=== PATIENT | male | born 1955 | race Caucasian/White ===

== ENCOUNTER 2017-12-29 09:25 | Inpatient (IN) | payer BC ==
[~2017-12-29] VITALS: Ht 172.7 cm; Wt 91.0 kg
--- NOTE | 2017-12-29 09:49 | EMERGENCY ROOM VISIT NOTE ---
History Report prepared by Eber: Gilmer Pittman Under the Supervision of: Dr. Alek Quintero M.D. First contact with patient: 09:35 Chief Complaint: FLU LIKE SX Stated Complaint: FLU & SWOLLEN GLANDS, EXCESSIVE SWEATING History of Present Illness The patient is a 62 year old white male with a past medical history of HLD and HTN who presents to the ED with a cc of persistent flu-like symptoms beginning 8 days ago. Positive shaking at night, dry cough, generalized achiness, sore glands in neck, pain under left arm, pain in groin area. Negative current fevers. He states that he did get his flu shot this season. The patient states that only extra-strength Tylenol relieves his symptoms for a short while. He notes that he currently feels the same as he did when the symptoms started. The patient states that he has not had any recent antibiotic use. He denies any recent known sick contacts. The patient does not smoke or use alcohol. Source of History: patient, nursing staff Onset: 8 days ago Position: other (global) Quality: other (flu-like symptoms) Timing: other (persistent) Modifying Factors (Relieving): tylenol Associated Symptoms: + cough, No fevers (no current) Note: Positive shaking, achiness, sore glands in neck, pain under left arm, pain in groin area. Review of Systems See HPI for pertinent positives and negatives. A total of ten systems were reviewed and were otherwise negative. Past Medical & Surgical Medical Problems: (1) HLD (hyperlipidemia) (2) HTN (hypertension) (3) Tachycardia Family History No pertinent family history Social History Smoking Status: Never Smoker Smokeless Tobacco Use: No Alcohol Use: none Drug Use: none Marital Status: Housing Status: lives with friends Current/Historical Medications Scheduled Aspirin (Aspirin Ec), 81 MG PO DAILY Atenolol (Atenolol), 50 MG PO DAILY Atorvastatin (Lipitor), 40 MG PO DAILY Esomeprazole Magnesium (Nexium), 40 MG PO DAILY Allergies Coded Allergies: No Known Allergies (Unverified , 12/29/17) Physical Exam Vital Signs Date Time Temp Pulse Resp B/P (MAP) Pulse Ox O2 Delivery O2 Flow Rate FiO2 12/29/17 14:00 95 Room Air 12/29/17 13:30 86 25 141/85 95 Room Air 12/29/17 13:25 85 12/29/17 13:00 86 22 136/77 94 12/29/17 12:30 86 27 129/76 95 Room Air 12/29/17 12:27 85 22 135/70 96 Room Air 12/29/17 11:18 89 22 138/71 96 Room Air 12/29/17 10:38 92 24 141/78 96 Room Air 12/29/17 10:06 97 Room Air 12/29/17 10:06 97 12/29/17 09:28 37.1 98 18 151/86 98 Room Air Physical Exam GENERAL: Awake, alert, well-appearing, NAD, mask in place. HENT: Normocephalic, atraumatic. EYES: Normal conjunctiva. Sclera non-icteric. NECK: Tender lymphadenopathy. Supple. No nuchal rigidity. FROM. RESPIRATORY: CTAB, no rhonchi, wheezing, crackles CARDIAC: RRR, no MRG ABDOMEN: Soft, NTND, BS+ MSK: No chest wall TTP, no LE edema NEURO: GCS 15, CN 2-12 intact, moves all 4s on command SKIN: No rash or jaundice noted. Medical Decision & Procedures ER Provider Diagnostic Interpretation: Radiology results as stated below per my review and radiologist interpretation: CHEST ONE VIEW PORTABLE CLINICAL HISTORY: Fever, sepsis COMPARISON STUDY: No previous studies for comparison. FINDINGS: The heart is normal in size. There is soft tissue fullness of the right paratracheal region. CT scanning could be obtained in follow-up as deemed clinically indicated. There is no focal pulmonary consolidation. There are no pleural effusions.[ There is no failure IMPRESSION: 1. No evidence of focal pulmonary consolidation 2. Soft tissue fullness of the right paratracheal region. Adenopathy cannot be excluded. Electronically signed by: Paul Carrasco M.D. 12/29/2017 10:10 AM Dictated Date/Time: 12/29/2017 10:[address] WITH CONTRAST CT DOSE: 308.89 mGy.cm HISTORY: Acute fever and sore throat. Right paratracheal fullness noted on chest radiographs of same day R paratracheal fullness, fever, sore throat, rigors TECHNIQUE: Multiaxial CT images of the chest were performed following the intravenous administration of contrast. A dose lowering technique was utilized adhering to the principles of ALARA. COMPARISON: Chest radiograph 12/29/2017. FINDINGS: Thyroid is homogeneous. There is multifocal bulky adenopathy about the chest including pathologically enlarged bilateral axillary and subpectoral lymph nodes with index right axillary lymph node measuring up to 2.2 x 1.8 cm on image 103 of series 4. Index pretracheal lymph node measures 2.1 x 1.5 cm on image 64 series 4, enlarged subcarinal lymph node measures 2.8 x 1.8 cm. Bulky adenopathy is seen within the prevascular, pretracheal, paratracheal and AP window distributions as well. Additionally, there is partially imaged bulky adenopathy of the upper abdomen within the region of the gastrohepatic ligament and ke hepatis. Heart is normal in size without pericardial effusion. Coronary arterial disease. Thoracic aorta is normal in both course and caliber. The pulmonary arterial tree appears unremarkable. There is no pneumothorax or pleural effusion. Mild groundglass opacity with subsegmental tree-in-bud nodularity of the left upper lobe. Respiratory motion limits evaluation of the lungs. Thickening with nodularity of the bilateral major fissures is noted. Additionally, scattered noncalcified pulmonary nodules are seen measuring up to 6 mm with the left lower lobe, image 205 series 4. 4 mm nodule of the lingula, image 129 series 4. 3 mm solid nodule of the right upper lobe, image 97 series 4. The liver appears enlarged, however is only partially imaged. Splenomegaly, measuring up to 14.8 cm. Mild bilateral gynecomastia. The bones appear intact. There are no suspicious lytic or blastic bony lesions identified. IMPRESSION: 1. Multifocal bulky adenopathy of the thorax as above, notably involving the mediastinum, tacos and bilateral subpectoral and axillary chains with partially imaged bulky adenopathy also present within the upper abdomen. Differential considerations would include lymphoproliferative disorder or metastatic disease from unknown primary. 2. Pleural thickening and nodularity of the bilateral major fissures is suspicious for lymphangitic spread of disease with infectious or inflammatory etiology also within the differential. A few scattered solid nodules of the lungs bilaterally measure up to 6 mm. Follow-up will be needed to further characterize. 3. Splenomegaly. Electronically signed by: Ke Hills M.D. 12/29/2017 12:34 PM Dictated Date/Time: 12/29/2017 12:23 PM Laboratory Results 12/29/17 10:40 Red Blood Count 5.17, Mean Corpuscular Volume 80.9, Mean Corpuscular Hemoglobin 27.9, Mean Corpuscular Hemoglobin Concent 34.4, Mean Platelet Volume 9.3, Neutrophils (%) (Auto) 75.2, Lymphocytes (%) (Auto) 10.6, Monocytes (%) (Auto) 10.3, Eosinophils (%) (Auto) 3.1, Basophils (%) (Auto) 0.3, Neutrophils # (Auto ) 9.68, Lymphocytes # (Auto) 1.36, Monocytes # (Auto) 1.32, Eosinophils # (Auto ) 0.40, Basophils # (Auto) 0.04 12/29/17 10:40 Test 12/29/17 09:46 12/29/17 09:56 12/29/17 10:40 Influenza Type A Antigen Neg for Influ A (NEG) Influenza Type B Antigen Neg for Influ B (NEG) Urine Color YELLOW Urine Appearance CLEAR (CLEAR) Urine pH 6.5 (4.5-7.5) Urine Specific [place] 1.012 (1.000-1.030) Urine Protein 1+ (NEG) Urine Glucose (UA) NEG (NEG) Urine Ketones NEG (NEG) Urine Occult Blood NEG (NEG) Urine Nitrite NEG (NEG) Urine Bilirubin NEG (NEG) Urine Urobilinogen NEG (NEG) Urine Leukocyte Esterase NEG (NEG) Urine WBC (Auto) 1-5 /hpf (0-5) Urine RBC (Auto) 0-4 /hpf (0-4) Urine Hyaline Casts (Auto) 0 /lpf (0-5) Urine Epithelial Cells (Auto) 5-10 /lpf (0-5) Urine Bacteria (Auto) NEG (NEG) White Blood Count 12.86 K/uL (4.8-10.8) Red Blood Count 5.17 M/uL (4.7-6.1) Hemoglobin 14.4 g/dL (14.0-18.0) Hematocrit 41.8 % (42-52) Mean Corpuscular Volume 80.9 fL (80-100) Mean Corpuscular Hemoglobin 27.9 pg (25-34) Mean Corpuscular Hemoglobin Concent 34.4 g/dl (32-36) Platelet Count 170 K/uL (130-400) Mean Platelet Volume 9.3 fL (7.4-10.4) Neutrophils (%) (Auto) 75.2 % Lymphocytes (%) (Auto) 10.6 % Monocytes (%) (Auto) 10.3 % Eosinophils (%) (Auto) 3.1 % Basophils (%) (Auto) 0.3 % Neutrophils # (Auto) 9.68 K/uL (1.4-6.5) Lymphocytes # (Auto) 1.36 K/uL (1.2-3.4) Monocytes # (Auto) 1.32 K/uL (0.11-0.59) Eosinophils # (Auto) 0.40 K/uL (0-0.5) Basophils # (Auto) 0.04 K/uL (0-0.2) RDW Standard Deviation 41.2 fL (36.4-46.3) RDW Coefficient of Variation 14.0 % (11.5-14.5) Immature Granulocyte % (Auto) 0.5 % Immature Granulocyte # (Auto) 0.06 K/uL (0.00-0.02) Prothrombin Time 11.0 SECONDS (9.0-12.0) Prothromb Time International Ratio 1.0 (0.9-1.1) Activated Partial Thromboplast Time 23.8 SECONDS (21.0-31.0) Partial Thromboplastin Ratio 0.9 Anion Gap 5.0 mmol/L (3-11) Est Creatinine Clear Calc Drug Dose 81.9 ml/min Estimated GFR () 93.6 Estimated GFR (Non- 80.7 BUN/Creatinine Ratio 15.8 (10-20) Calcium Level 8.4 mg/dl (8.5-10.1) Total Bilirubin 0.6 mg/dl (0.2-1) Direct Bilirubin 0.2 mg/dl (0-0.2) Aspartate Amino Transf (AST/SGOT) 75 U/L (15-37) Alanine Aminotransferase (ALT/SGPT) 161 U/L (12-78) Alkaline Phosphatase 227 U/L (45-117) Total Protein 7.7 gm/dl (6.4-8.2) Albumin 2.7 gm/dl (3.4-5.0) Laboratory results reviewed by me Medications Administered Medications (Trade) Dose Ordered Sig/Selena Route Start Time Stop Time Status Last Admin Dose Admin Acetaminophen (Tylenol Tab) 1,000 mg NOW STAT PO 12/29/17 09:50 12/29/17 09:52 DC 12/29/17 10:28 1,000 MG Ketorolac Tromethamine (Toradol Inj) 30 mg NOW STAT IV 12/29/17 09:50 12/29/17 09:52 DC 12/29/17 10:41 30 MG Sodium Chloride 1,000 ml @ 999 mls/hr Q1H1M STAT IV 12/29/17 09:50 12/29/17 10:50 DC 12/29/17 09:50 999 MLS/HR ED Course 0940: The patient was evaluated in room B4B. A complete history and physical exam was performed. 1128: I reevaluated the patient and told him he will get a CT of his chest, and he agrees with the plan. 1248: I discussed the patient with Lakisha Mercado - she will talk to Dr. Irizarry. 1343: Dr. Irizarry - Rogelio teacher education instructor - will keep the patient and evaluate the patient for further treatment. 1344: Upon reexamination, the patient was resting. I discussed the test results and treatment plan with him. The patient will be evaluated for further management. Medical Decision The patient is a 62 year old white male with a past medical history of HLD and HTN who presents to the ED with a cc of persistent flu-like symptoms beginning 8 days ago. Positive shaking at night, dry cough, generalized achiness, sore glands in neck, pain under left arm, pain in groin area. Negative current fevers. Differential diagnosis: Etiologies such as viral syndrome, otitis, pharyngitis, pneumonia, influenza, meningitis, urinary tract infection, sepsis, bacteremia, as well as others were entertained. Patient was seen and evaluated the bedside. Patient had been complaining some rigors, fevers ongoing 8 days. Patient also did complain of some tender neck and groin pain. He described it as swollen glands. Patient did have blood work completed, flu, chest x-ray along with IV fluids and medications for symptom control. Upon reassessment the patient was feeling improved. The patient's blood work is fairly unremarkable. Patient chest x-ray did show some paratracheal fullness. CT chest with IV contrast was obtained. Results of the CT chest were concerning for either a primary or metastatic process. I discussed the case with the on-call hospitalist to discuss whether urgent follow -up as an outpatient versus inpatient treatment would be more suitable. The patient did have a discussion with the on-call hospitalist to believe that the patient would benefit from inpatient evaluation and treatment. Patient was admitted. Medication Reconcilliation Current Medication List: was personally reviewed by me Blood Pressure Screening Patient's blood pressure: Elevated blood pressure Blood pressure disposition: Elevated BP felt to be situational Consults Time Called: 1245 Consulting Physician: Lakisha Mercado Returned Call: 1245 I discussed the patient with Lakisha Mercado - she will talk to Dr. Irizarry. Additional Consults: Time Called: -- Consulted Physician: Dr. Juan C Mercado teacher education instructor Returned Call: [phone] Additional Comments: Dr. Juan C Mercado teacher education instructor - will keep the patient and evaluate the patient for further treatment. Impression Primary Impression: Chest mass Additional Impressions: Fever Chills Scribe Attestation The scribe's documentation has been prepared under my direction and personally reviewed by me in its entirety. I confirm that the note above accurately reflects all work, treatment, procedures, and medical decision making performed by me. Departure Information Dispostion Being Evaluated By Hospitalist Referrals No Doctor, Assigned (PCP) Patient Instructions My [facility] Problem Qualifiers Additional Impressions: Fever Fever type: unspecified Qualified Codes: R50.9 - Fever, unspecified
[2017-12-29] MEDS ORDERED: SODIUM CHLORIDE 0.9% 1000ML 1,000 ML IV STA (09:50)
[2017-12-29] MEDS ORDERED: KETOROLAC TROMETHAMINE 30 MG/ML VIAL IV STA (09:50)
[2017-12-29] MEDS ORDERED: ACETAMINOPHEN 500 MG TAB PO STA (09:50)
--- NOTE | 2017-12-29 10:11 | DIAGNOSTIC IMAGING REPORT ---
CHEST ONE VIEW PORTABLE CLINICAL HISTORY: Fever, sepsis COMPARISON STUDY: No previous studies for comparison. FINDINGS: The heart is normal in size. There is soft tissue fullness of the right paratracheal region. CT scanning could be obtained in follow-up as deemed clinically indicated. There is no focal pulmonary consolidation. There are no pleural effusions.[ There is no failure IMPRESSION: 1. No evidence of focal pulmonary consolidation 2. Soft tissue fullness of the right paratracheal region. Adenopathy cannot be excluded. Electronically signed by: Paul Carrasco M.D. 12/29/2017 10:10 AM Dictated Date/Time: 12/29/2017 10:08 AM
[2017-12-29 10:24] LABS: INFLUENZA B ANTIGEN Neg for Influ B (NEG)
[2017-12-29] MEDS ORDERED: LPT/40 PO (10:26)
[2017-12-29] MEDS ORDERED: ASPI81TA28 PO (10:26)
[2017-12-29] MEDS ORDERED: TNR50 PO (10:26)
[2017-12-29] MEDS ORDERED: NXM/40 PO (10:26)
[2017-12-29] MEDS ORDERED: OPTIRAY 320 IV PRN (10:45)
[2017-12-29 11:03] LABS: BASO % 0.3 %; BASO ABS # 0.04 K/uL (0-0.2); EOS % 3.1 %; HEMATOCRIT 41.8 % (42-52); HEMOGLOBIN 14.4 g/dL (14.0-18.0); IG# 0.06 K/uL (0.00-0.02); LYMPH % 10.6 %; LYMPH ABS # 1.36 K/uL (1.2-3.4); MEAN CELL VOLUME 80.9 fL (80-100); MEAN CORPUSCULAR HEMOGLOBIN 27.9 pg (25-34); MEAN CORPUSCULAR HGB CONC 34.4 g/dl (32-36); MEAN PLATELET VOLUME 9.3 fL (7.4-10.4); MONO % 10.3 %; MONO ABS # 1.32 K/uL (0.11-0.59); NEUT % 75.2 %; NEUT ABS # 9.68 K/uL (1.4-6.5); PLATELET COUNT 170 K/uL (130-400); RED CELL DISTRIBUTION WIDTH SD 41.2 fL (36.4-46.3); WHITE BLOOD COUNT 12.86 K/uL (4.8-10.8)
[2017-12-29 11:12] LABS: PTT PATIENT 23.8 SECONDS (21.0-31.0)
[2017-12-29 11:21] LABS: ALBUMIN 2.7 gm/dl (3.4-5.0); CALCIUM 8.4 mg/dl (8.5-10.1); CREATININE 0.99 mg/dl (0.60-1.40); POTASSIUM 3.5 mmol/L (3.5-5.1)
[2017-12-29 11:23] LABS: TOTAL PROTEIN 7.7 gm/dl (6.4-8.2)
--- NOTE | 2017-12-29 12:35 | DIAGNOSTIC IMAGING REPORT ---
CHEST CT WITH CONTRAST CT DOSE: 308.89 mGy.cm HISTORY: Acute fever and sore throat. Right paratracheal fullness noted on chest radiographs of same day R paratracheal fullness, fever, sore throat, rigors TECHNIQUE: Multiaxial CT images of the chest were performed following the intravenous administration of contrast. A dose lowering technique was utilized adhering to the principles of ALARA. COMPARISON: Chest radiograph 12/29/2017. FINDINGS: Thyroid is homogeneous. There is multifocal bulky adenopathy about the chest including pathologically enlarged bilateral axillary and subpectoral lymph nodes with index right axillary lymph node measuring up to 2.2 x 1.8 cm on image 103 of series 4. Index pretracheal lymph node measures 2.1 x 1.5 cm on image 64 series 4, enlarged subcarinal lymph node measures 2.8 x 1.8 cm. Bulky adenopathy is seen within the prevascular, pretracheal, paratracheal and AP window distributions as well. Additionally, there is partially imaged bulky adenopathy of the upper abdomen within the region of the gastrohepatic ligament and ke hepatis. Heart is normal in size without pericardial effusion. Coronary arterial disease. Thoracic aorta is normal in both course and caliber. The pulmonary arterial tree appears unremarkable. There is no pneumothorax or pleural effusion. Mild groundglass opacity with subsegmental tree-in-bud nodularity of the left upper lobe. Respiratory motion limits evaluation of the lungs. Thickening with nodularity of the bilateral major fissures is noted. Additionally, scattered noncalcified pulmonary nodules are seen measuring up to 6 mm with the left lower lobe, image 205 series 4. 4 mm nodule of the lingula, image 129 series 4. 3 mm solid nodule of the right upper lobe, image 97 series 4. The liver appears enlarged, however is only partially imaged. Splenomegaly, measuring up to 14.8 cm. Mild bilateral gynecomastia. The bones appear intact. There are no suspicious lytic or blastic bony lesions identified. IMPRESSION: 1. Multifocal bulky adenopathy of the thorax as above, notably involving the mediastinum, tacos and bilateral subpectoral and axillary chains with partially imaged bulky adenopathy also present within the upper abdomen. Differential considerations would include lymphoproliferative disorder or metastatic disease from unknown primary. 2. Pleural thickening and nodularity of the bilateral major fissures is suspicious for lymphangitic spread of disease with infectious or inflammatory etiology also within the differential. A few scattered solid nodules of the lungs bilaterally measure up to 6 mm. Follow-up will be needed to further characterize. 3. Splenomegaly. Electronically signed by: Ke Hills M.D. 12/29/2017 12:34 PM Dictated Date/Time: 12/29/2017 12:23 PM
[2017-12-29 14:00] VITALS: O2SAT 95; Ht 172.7 cm; Wt 91.0 kg
[2017-12-29] MEDS ORDERED: ACETAMINOPHEN 325 MG TAB PO PRN ×2 (14:00→21:45)
[2017-12-29] MEDS ORDERED: IV FLUIDS COMPLETED PRN (14:15)
--- NOTE | 2017-12-29 14:29 | History and Physical ---
History & Physical Date & Time of Service: Dec 29, 2017 at 14:29 . Chief Complaint: fever, sweats . Primary Care Physician: Henna He D.O. . History of Present Illness Source: patient, clinic records, hospital records 62-year-old male from [place] followed by Dr. He. History of hypertension, PSVT, and other problems noted below. Developed malaise, fever, sweats about 8 days ago. 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 Palpitations with heart rate as high as 150. Nonproductive cough. No pharyngitis. No sinus congestion/drainage. Experiencing diffuse myalgias; no arthralgias. No apparent tick bites or rash. Notes tenderness in his anterior neck and groin. No weight loss. Took Tylenol at home with minimal relief of his symptoms. Received ketorolac in ED with improvement of pain. . Past Medical/Surgical History Chronic and Resolved Medical Problems: (1) Dyslipidemia Status: Chronic (2) GERD (gastroesophageal reflux disease) Status: Chronic (3) History of paroxysmal supraventricular tachycardia Status: Chronic (4) Hypertension Status: Chronic . Family History FATHER Heart disease Prostate cancer MOTHER Kidney disease GRANDFATHER Colon cancer Social History Smoking Status: Former Smoker Smokeless Tobacco Use: No Alcohol Use: occasionally Drug Use: none Marital Status: Immunizations History of Influenza Vaccine: Yes History of Tetanus Vaccine?: Yes Allergies Coded Allergies: No Known Allergies (Unverified , 12/29/17) Home Medications Scheduled Alprazolam (Alprazolam), 0.25 MG PO BID Aspirin (Aspirin Ec), 81 MG PO DAILY Atenolol (Atenolol), 50 MG PO DAILY Atorvastatin (Lipitor), 40 MG PO DAILY Esomeprazole Magnesium (Nexium), 40 MG PO DAILY Review of Systems Constitutional: + fever, + chills, + sweats, No weight loss Eyes: No worsening of vision ENT: No nasal symptoms, No sore throat Respiratory: + problem reported (as noted in HPI) Cardiovascular: + palpitations, No chest pain, No edema Abdomen: No pain, No nausea, No vomiting, No diarrhea Musculoskeletal: + muscle pain, No joint pain Genitourinary - Male: No hematuria, No dysuria Neurologic: + problem reported (no headache) Psychiatric: + anxiety Endocrine: + fatigue, No excessive thirst, No excessive urination Hematologic / Lymphatic: + swollen lymph nodes, No abnormal bleeding/bruising Integumentary: No rash, No new/changing skin lesions Physical Exam Vital Signs Date Time Temp Pulse Resp B/P (MAP) Pulse Ox O2 Delivery O2 Flow Rate FiO2 12/29/17 14:00 95 Room Air 12/29/17 13:30 86 25 141/85 95 Room Air 12/29/17 13:25 85 12/29/17 13:00 86 22 136/77 94 12/29/17 12:30 86 27 129/76 95 Room Air 12/29/17 12:27 85 22 135/70 96 Room Air 12/29/17 11:18 89 22 138/71 96 Room Air 12/29/17 10:38 92 24 141/78 96 Room Air 12/29/17 10:06 97 Room Air 12/29/17 10:06 97 12/29/17 09:28 37.1 98 18 151/86 98 Room Air CONSTITUTIONAL vital signs as noted above well-developed, well-nourished, no acute distress EYES conjunctivae clear; lids normal pupils equal and reactive to light EARS, NOSE, MOUTH AND THROAT external inspection of ears and nose unremarkable hearing grossly intact to spoken voice oropharynx clear NECK no masses; trachea midline thyroid normal RESPIRATORY normal respiratory effort; no respiratory distress clear to percussion clear to auscultation CARDIOVASCULAR regular rate and rhythm I/ systolic murmur at base no gallop or rub appreciated carotid arteries 2/2 abdominal aorta not palpable pedal pulses intact and symmetric capillary refill toes < 2 seconds no pretibial edema GASTROINTESTINAL normal bowel sounds, soft, nontender; no palpable masses no hepatomegaly or splenomegaly appreciated LYMPHATIC shotty anterior cervical and supraclavicular adenopathy bilateral axillary tenderness; no discrete adenopathy appreciated bilateral inguinal tenderness; no discrete adenopathy appreciated MUSCULOSKELETAL no cyanosis; no digital clubbing no calf tenderness motor strength extremities grossly intact SKIN no rash warm and dry NEUROLOGIC PERRL, EOMI, no facial palsy, no dysarthria, tongue midline patellar DTR's 2/2 PSYCHIATRIC oriented to person, place, time mood and affect appropriate . Diagnostics Laboratory Results Results Past 24 Hours Test 12/29/17 09:46 12/29/17 09:56 12/29/17 10:40 Range/Units Influenza Type A Antigen Neg for Influ A NEG Influenza Type B Antigen Neg for Influ B NEG Urine Color YELLOW Urine Appearance CLEAR CLEAR Urine pH 6.5 4.5-7.5 Urine Specific [place] 1.012 1.000-1.030 Urine Protein 1+ NEG Urine Glucose (UA) NEG NEG Urine Ketones NEG NEG Urine Occult Blood NEG NEG Urine Nitrite NEG NEG Urine Bilirubin NEG NEG Urine Urobilinogen NEG NEG Urine Leukocyte Esterase NEG NEG Urine WBC (Auto) 1-5 0-5 /hpf Urine RBC (Auto) 0-4 0-4 /hpf Urine Hyaline Casts (Auto) 0 0-5 /lpf Urine Epithelial Cells (Auto) 5-10 0-5 /lpf Urine Bacteria (Auto) NEG NEG White Blood Count 12.86 4.8-10.8 K/uL Red Blood Count 5.17 4.7-6.1 M/uL Hemoglobin 14.4 14.0-18.0 g/dL Hematocrit 41.8 42-52 % Mean Corpuscular Volume 80.9 80-100 fL Mean Corpuscular Hemoglobin 27.9 25-34 pg Mean Corpuscular Hemoglobin Concent 34.4 32-36 g/dl Platelet Count 170 130-400 K/uL Mean Platelet Volume 9.3 7.4-10.4 fL Neutrophils (%) (Auto) 75.2 % Lymphocytes (%) (Auto) 10.6 % Monocytes (%) (Auto) 10.3 % Eosinophils (%) (Auto) 3.1 % Basophils (%) (Auto) 0.3 % Neutrophils # (Auto) 9.68 1.4-6.5 K/uL Lymphocytes # (Auto) 1.36 1.2-3.4 K/uL Monocytes # (Auto) 1.32 0.11-0.59 K/uL Eosinophils # (Auto) 0.40 0-0.5 K/uL Basophils # (Auto) 0.04 0-0.2 K/uL RDW Standard Deviation 41.2 36.4-46.3 fL RDW Coefficient of Variation 14.0 11.5-14.5 % Immature Granulocyte % (Auto) 0.5 % Immature Granulocyte # (Auto) 0.06 0.00-0.02 K/uL Prothrombin Time 11.0 9.0-12.0 SECONDS Prothromb Time International Ratio 1.0 0.9-1.1 Activated Partial Thromboplast Time 23.8 21.0-31.0 SECONDS Partial Thromboplastin Ratio 0.9 Sodium Level 134 136-145 mmol/L Potassium Level 3.5 3.5-5.1 mmol/L Chloride Level 102 98-107 mmol/L Carbon Dioxide Level 27 21-32 mmol/L Anion Gap 5.0 3-11 mmol/L Blood Urea Nitrogen 16 7-18 mg/dl Creatinine 0.99 0.60-1.40 mg/dl Est Creatinine Clear Calc Drug Dose 81.9 ml/min Estimated GFR () 93.6 Estimated GFR (Non- 80.7 BUN/Creatinine Ratio 15.8 10-20 Random Glucose 106 70-99 mg/dl Calcium Level 8.4 8.5-10.1 mg/dl Total Bilirubin 0.6 0.2-1 mg/dl Direct Bilirubin 0.2 0-0.2 mg/dl Aspartate Amino Transf (AST/SGOT) 75 15-37 U/L Alanine Aminotransferase (ALT/SGPT) 161 12-78 U/L Alkaline Phosphatase 227 45-117 U/L Total Protein 7.7 6.4-8.2 gm/dl Albumin 2.7 3.4-5.0 gm/dl Diagnostic Radiology CHEST ONE VIEW PORTABLE FINDINGS: The heart is normal in size. There is soft tissue fullness of the right paratracheal region. CT scanning could be obtained in follow-up as deemed clinically indicated. There is no focal pulmonary consolidation. There are no pleural effusions.[ There is no failure IMPRESSION: 1. No evidence of focal pulmonary consolidation 2. Soft tissue fullness of the right paratracheal region. Adenopathy cannot be excluded. Electronically signed by: Paul Carrasco M.D. 12/29/2017 10:10 AM Dictated Date/Time: 12/29/2017 10:[address] WITH CONTRAST FINDINGS: Thyroid is homogeneous. There is multifocal bulky adenopathy about the chest including pathologically enlarged bilateral axillary and subpectoral lymph nodes with index right axillary lymph node measuring up to 2.2 x 1.8 cm on image 103 of series 4. Index pretracheal lymph node measures 2.1 x 1.5 cm on image 64 series 4, enlarged subcarinal lymph node measures 2.8 x 1.8 cm. Bulky adenopathy is seen within the prevascular, pretracheal, paratracheal and AP window distributions as well. Additionally, there is partially imaged bulky adenopathy of the upper abdomen within the region of the gastrohepatic ligament and ke hepatis. Heart is normal in size without pericardial effusion. Coronary arterial disease. Thoracic aorta is normal in both course and caliber. The pulmonary arterial tree appears unremarkable. There is no pneumothorax or pleural effusion. Mild groundglass opacity with subsegmental tree-in-bud nodularity of the left upper lobe. Respiratory motion limits evaluation of the lungs. Thickening with nodularity of the bilateral major fissures is noted. Additionally, scattered noncalcified pulmonary nodules are seen measuring up to 6 mm with the left lower lobe, image 205 series 4. 4 mm nodule of the lingula, image 129 series 4. 3 mm solid nodule of the right upper lobe, image 97 series 4. The liver appears enlarged, however is only partially imaged. Splenomegaly, measuring up to 14.8 cm. Mild bilateral gynecomastia. The bones appear intact. There are no suspicious lytic or blastic bony lesions identified. IMPRESSION: 1. Multifocal bulky adenopathy of the thorax as above, notably involving the mediastinum, tacos and bilateral subpectoral and axillary chains with partially imaged bulky adenopathy also present within the upper abdomen. Differential considerations would include lymphoproliferative disorder or metastatic disease from unknown primary. 2. Pleural thickening and nodularity of the bilateral major fissures is suspicious for lymphangitic spread of disease with infectious or inflammatory etiology also within the differential. A few scattered solid nodules of the lungs bilaterally measure up to 6 mm. Follow-up will be needed to further characterize. 3. Splenomegaly. Electronically signed by: Ke Hills M.D. 12/29/2017 12:34 PM Dictated Date/Time: 12/29/2017 12:23 PM . Impression Assessment and Plan FEBRILE ILLNESS / ADENOPATHY 8 day history of febrile illness with associated rigors and diaphoresis. Nonproductive cough. No sinus symptoms. No sinusitis Nasopharyngeal swab for influenza A/B negative per both antigen and PCR testing. Extensive adenopathy as noted on CT of chest. Differential diagnosis includes infectious, neoplastic, inflammatory pathologies. Patient is afebrile in the ED. White count is slightly elevated 12,860 Does not appear to be septic. Check blood cultures if temperature rises. PCR testing for CMV, EBV, tickborne illnesses. Check mycoplasma and legionella serologies. Consult Thoracic Surgery regarding further diagnostic evaluation. Check CT of abdomen and pelvis in 24 hrs for further evaluation of adenopathy and splenomegaly. Empiric antibiotic therapy with doxycycline once blood cultures and blood for PCR's obtained. Consult ID for their input. ELEVATED TRANSAMINASES AND ALKALINE PHOSPHATASE No significant drinking history. Total bilirubin 0.6, AST 75, ALT 161, alkaline phosphatase 227. Enzyme elevations are nonspecific; may or may not represent hepatic disease. Splenomegaly noted on CT of chest. Check CT of abdomen (but wait [address] of chest with IV contrast performed today). Check hepatitis serologies. Hold statin. PALPITATIONS History of paroxysmal SVT. Pulse rate as high as 150 at home. Continue atenolol. Monitor on telemetry. HYPERTENSION Continue atenolol. GERD Continue PPI. VTE PROPHYLAXIS Will utilize SCDs rather than anticoagulants in anticipation of invasive diagnostic testing. RESUSCITATION STATUS Full code. DISPOSITION Observation status on Telemetry Unit. Change to inpatient status if indicated. Expected discharge to home. . Advanced Directives Existing Living Will: No Existing Power of Press Operator Apprentice: No Resuscitation Status VTE Prophylaxis Will order VTE Prophylaxis: Yes
[2017-12-29 15:28] LABS: INFLUENZA A PCR Neg for Influ A (NEG); INFLUENZA B PCR Neg for Influ B (NEG)
[2017-12-29 15:35] VITALS: BP 136/65; PULSE 87; TEMP 37.1; O2SAT 97
[2017-12-29] MEDS ORDERED: ALPR-412 PO (19:25)
[2017-12-29 20:00] VITALS: O2SAT 97
[2017-12-29 20:39] VITALS: BP 149/75; PULSE 95; TEMP 37.8; O2SAT 95
[2017-12-29] MEDS: ALPRAZOLAM 0.25 MG TAB PO SCH (21:05)
[2017-12-29] MEDS ORDERED: LACTATED RINGER'S 1000ML 1,000 ML IV SCH (21:45)
[2017-12-29 23:59] VITALS: BP 122/62; PULSE 83; TEMP 37.3; O2SAT 96
[2017-12-30] VITALS (12 sets, daily range): BP systolic 123–157; BP diastolic 71–78; PULSE 86–102; TEMP 36.7–37.9; O2SAT 2–98
[2017-12-30 06:23] LABS: BASO % 0.4 %; BASO ABS # 0.04 K/uL (0-0.2); EOS % 3.9 %; HEMATOCRIT 38.3 % (42-52); HEMOGLOBIN 13.1 g/dL (14.0-18.0); IG# 0.05 K/uL (0.00-0.02); LYMPH % 14.7 %; LYMPH ABS # 1.51 K/uL (1.2-3.4); MEAN CELL VOLUME 80.6 fL (80-100); MEAN CORPUSCULAR HEMOGLOBIN 27.6 pg (25-34); MEAN CORPUSCULAR HGB CONC 34.2 g/dl (32-36); MEAN PLATELET VOLUME 9.1 fL (7.4-10.4); MONO % 10.3 %; MONO ABS # 1.06 K/uL (0.11-0.59); NEUT % 70.2 %; NEUT ABS # 7.22 K/uL (1.4-6.5); PLATELET COUNT 175 K/uL (130-400); RED CELL DISTRIBUTION WIDTH CV 14.3 % (11.5-14.5); RED CELL DISTRIBUTION WIDTH SD 41.9 fL (36.4-46.3); WHITE BLOOD COUNT 10.28 K/uL (4.8-10.8)
[2017-12-30 06:50] LABS: ALBUMIN 2.5 gm/dl (3.4-5.0); CALCIUM 8.1 mg/dl (8.5-10.1); CREATININE 0.97 mg/dl (0.60-1.40); POTASSIUM 3.4 mmol/L (3.5-5.1)
[2017-12-30 06:53] LABS: TOTAL PROTEIN 6.8 gm/dl (6.4-8.2)
[2017-12-30] MEDS ORDERED: POTASSIUM CHLORIDE 10 MEQ TABCR PO ONE (07:45)
[2017-12-30] MEDS: ALPRAZOLAM 0.25 MG TAB PO SCH ×2 (07:56→21:12)
[2017-12-30] MEDS: PANTOprazole SOD 40 MG TAB PO SCH (07:59)
[2017-12-30] MEDS: DOXYCYCLINE IV 100 MG in DEXTROSE 5% 100ML 100 ML IV SCH ×2 (08:03→21:12)
--- NOTE | 2017-12-30 08:03 | SURGICAL CONSULTATION ---
DATE OF CONSULTATION: 12/30/2017 REASON FOR CONSULTATION: Mediastinal adenopathy. 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 He has had night sweats and fevers as high as 101. He also has a history of paroxysmal supraventricular tachycardia and felt his heart rate was as high as 150. He has had rigors and chills. He denies a productive cough. He has no sore throat. He does have a cough. He is complaining of pain in his groin area but works out regularly riding a bike and lifting weights. I was asked to evaluate him for a possible tissue biopsy. His CT scan showed marked mediastinal adenopathy. He has a couple of small nodules. PAST MEDICAL HISTORY: 1. History of cigarette smoking in the past. 2. Gastroesophageal reflux disease. 3. Hyperlipidemia. 4. Hypertension. 5. History of paroxysmal supraventricular tachycardia. PAST SURGICAL HISTORY: Screening colonoscopy. MEDICATIONS: 1. Lipitor. 2. Alprazolam. 3. Atenolol. 4. Aspirin. 5. Nexium. ALLERGIES: No known drug allergies. SOCIAL HISTORY: The patient is . He lives in [place]. He is originally from [place]. His father was a general practitioner and his daughter is a hospitalist. He does not smoke now. He really does not use much in the way of alcohol. FAMILY MEDICAL HISTORY: The patient's father at 91. Mother at 80. His 2 children and 4 grandchildren are all healthy. REVIEW OF SYSTEMS: He denies weight loss but has constitutional symptoms as noted in history of present illness. He denies a sore throat. He has had no change in his vision or his hearing. He does have a history of anxiety. He does have a nonproductive cough. He complains of palpitations but no chest pain. He has had no GI or symptoms. He has had no peripheral edema. He has had no adenopathy that he can feel. PHYSICAL EXAMINATION: GENERAL: He is 5 feet 8 inch, 193 pound male who is awake, alert, oriented and conversive. He really denies any pain now except for some mild discomfort along his groin area. He has no wound breakdown. HEENT: Extraocular movements are intact. Pupils are equal, round and reactive. Sclerae are anicteric. He has no oral mucosal lesions. Teeth are in good repair. NECK: Supple. I really do not detect much in the way of supraclavicular adenopathy, some very mild cervical adenopathy. LUNGS: Grossly clear. HEART: He has a regular rate and rhythm of his heart. His heart rate is about 100. I am not really hearing any extra systoles. He has no carotid bruits or thyroid nodules. I really feel much in the way of axillary adenopathy. ABDOMEN: A bit full but he has good bowel sounds. He is not really tender. I do not really palpate splenomegaly, although it appears that he has this on CT. His inguinal area is tender, but I really do not feel much in the way of adenopathy. EXTREMITIES: He has no peripheral edema. He has excellent peripheral pulses and no joint effusions. NEUROLOGICAL: Completely intact. Cranial nerves II-XII are intact. ASSESSMENT AND PLAN: Marked mediastinal and diffuse adenopathy with splenomegaly. I had a long talk with the patient and I discussed this with the patient's daughter. My personal feeling is we needed more tissue than a fine needle aspiration. I am going to offer him a video mediastinoscopy later today.
[2017-12-30] MEDS ORDERED: DOXYCYCLINE HYCLATE 100 MG CAP PO SCH (09:00)
[2017-12-30] MEDS ORDERED: ATORVASTATIN 40 MG TAB PO SCH (09:00)
[2017-12-30 09:31] LABS: HEP C IGG 13 YRS+OLDER_RFLX NEG (NEG)
[2017-12-30] MEDS: D5NSS + 20MEQ KCL 1,000 ML IV SCH (09:36)
--- NOTE | 2017-12-30 10:38 | Medical Consult ---
Consultation Date of Consultation: Dec 30, 2017. Attending Physician: Román Banuelos MD Reason for Consultation: Febrile illness History of Present Illness 62-year-old male with history of hypertension and hyperlipidemia but otherwise in excellent health, was well until approximately 8 days ago when he had the relatively sudden onset of fever, rigors, night sweats, and myalgias with fatigue. He had moderate dry cough, nor sore throat or chest congestion. No GI or complaints. Symptoms progressively worsened, and patient eventually came to the emergency department, and patient ultimately had CT scan, read by me , which shows significant adenopathy in the neck and chest. Now plans for mediastinum us could be with lymph node biopsy later today. Patient has no significant travel or recent other exposure history. No pets or other animal exposure. No ill contacts. 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 No joint complaints. Past Medical/Surgical History Medical Problems: (1) Chest mass Status: Acute (2) Chills Status: Acute (3) Fever Status: Acute Medical Problems: (1) Dyslipidemia (2) GERD (gastroesophageal reflux disease) (3) History of paroxysmal supraventricular tachycardia (4) Hypertension (5) Tachycardia Family History Colon cancer GRANDFATHER Heart disease FATHER Kidney disease MOTHER Prostate cancer FATHER Social History Smoking Status: Former Smoker Smokeless Tobacco Use: No Alcohol Use: occasionally Drug Use: none Marital Status: Housing Status: lives with friends Allergies Coded Allergies: No Known Allergies (Unverified , 12/29/17) Current Inpatient Medications Current Inpatient Medications Medications (Trade) Dose Ordered Sig/Selena Route Start Time Stop Time Status Last Admin Dose Admin Ioversol (Optiray 320) 111 ml UD PRN IV 12/29/17 10:45 01/02/18 10:44 Miscellaneous (Iv Fluids Completed) 1 ea PRN PRN N/A 12/29/17 14:15 12/29/18 14:14 Alprazolam (Xanax Tab) 0.25 mg BID PO 12/29/17 21:00 01/28/18 20:59 12/30/17 07:56 0.25 MG Atenolol (Tenormin Tab) 50 mg DAILY PO 12/30/17 09:00 01/29/18 08:59 12/30/17 07:59 50 MG Pantoprazole Sodium (Protonix Tab) 40 mg QAM PO 12/30/17 09:00 01/29/18 08:59 12/30/17 07:59 40 MG Acetaminophen (Tylenol Tab) 650 mg Q6H PRN PO 12/29/17 21:45 01/28/18 13:59 Doxycycline Hyclate 100 mg/ Dextrose 110 ml @ 50 mls/hr BID IV 12/30/17 09:00 01/01/18 08:59 12/30/17 08:03 50 MLS/HR Potassium Chloride/Dextrose/ Sod Cl 1,000 ml @ 80 mls/hr [id number] IV 12/30/17 07:45 01/29/18 07:44 12/30/17 09:36 80 MLS/HR Review of Systems All systems were reviewed and are negative except as per HPI Physical Exam Date Time Temp Pulse Resp B/P (MAP) Pulse Ox O2 Delivery O2 Flow Rate FiO2 12/30/17 08:00 37.9 102 22 139/71 (93) 96 Room Air 12/30/17 04:00 96 Room Air 12/30/17 03:40 37.8 101 18 157/76 (103) 96 Room Air 12/30/17 00:00 98 Room Air 12/29/17 23:59 37.3 83 16 122/62 (82) 96 Room Air 12/29/17 20:39 37.8 95 18 149/75 (99) 95 Room Air 12/29/17 20:00 97 Room Air 12/29/17 15:35 37.1 87 20 136/65 (88) 97 Room Air 12/29/17 14:30 82 20 128/69 96 12/29/17 14:00 95 Room Air 12/29/17 13:30 86 25 141/85 95 Room Air 12/29/17 13:25 85 12/29/17 13:00 86 22 136/77 94 12/29/17 12:30 86 27 129/76 95 Room Air 12/29/17 12:27 85 22 135/70 96 Room Air 12/29/17 11:18 89 22 138/71 96 Room Air 12/29/17 10:38 92 24 141/78 96 Room Air General Appearance: WD/WN, no apparent distress Head: normocephalic, atraumatic Eyes: normal inspection, EOMI, sclerae normal ENT: normal ENT inspection, hearing grossly normal, pharynx normal Neck: supple, thyroid normal, trachea midline, + adenopathy present Respiratory/Chest: chest non-tender, lungs clear, normal breath sounds, no respiratory distress Cardiovascular: regular rate, rhythm, no gallop, no murmur Abdomen/GI: normal bowel sounds, non tender, soft, no organomegaly Back: normal inspection, no CVA tenderness Extremities/Musculoskelatal: normal inspection, no calf tenderness, normal capillary refill, non-tender Neurologic/Psych: alert, normal mood/affect, oriented x 3 Skin: normal color, warm/dry, no rash Lymphatic: + axillary node abnormality, + cervical node abnormality Laboratory Results Date/Time Source Procedure Growth Status 12/30/17 06:18 Blood Blood Culture Pending Received 12/30/17 06:02 Blood Blood Culture Pending Received 12/30/17 09:42 Stool C.difficile Toxin B Gene (PCR) Pending Received 12/30/17 09:42 Stool Shiga Toxin Test Pending Received 12/30/17 09:42 Stool Stool Culture Pending Received Last 24 Hours Test 12/29/17 10:40 12/30/17 06:02 12/30/17 08:10 12/30/17 09:09 White Blood Count 12.86 K/uL 10.28 K/uL Red Blood Count 5.17 M/uL 4.75 M/uL Hemoglobin 14.4 g/dL 13.1 g/dL Hematocrit 41.8 % 38.3 % Mean Corpuscular Volume 80.9 fL 80.6 fL Mean Corpuscular Hemoglobin 27.9 pg 27.6 pg Mean Corpuscular Hemoglobin Concent 34.4 g/dl 34.2 g/dl Platelet Count 170 K/uL 175 K/uL Mean Platelet Volume 9.3 fL 9.1 fL Neutrophils (%) (Auto) 75.2 % 70.2 % Lymphocytes (%) (Auto) 10.6 % 14.7 % Monocytes (%) (Auto) 10.3 % 10.3 % Eosinophils (%) (Auto) 3.1 % 3.9 % Basophils (%) (Auto) 0.3 % 0.4 % Neutrophils # (Auto) 9.68 K/uL 7.22 K/uL Lymphocytes # (Auto) 1.36 K/uL 1.51 K/uL Monocytes # (Auto) 1.32 K/uL 1.06 K/uL Eosinophils # (Auto) 0.40 K/uL 0.40 K/uL Basophils # (Auto) 0.04 K/uL 0.04 K/uL RDW Standard Deviation 41.2 fL 41.9 fL RDW Coefficient of Variation 14.0 % 14.3 % Immature Granulocyte % (Auto) 0.5 % 0.5 % Immature Granulocyte # (Auto) 0.06 K/uL 0.05 K/uL Prothrombin Time 11.0 SECONDS Prothromb Time International Ratio 1.0 Activated Partial Thromboplast Time 23.8 SECONDS Partial Thromboplastin Ratio 0.9 Sodium Level 134 mmol/L 138 mmol/L Potassium Level 3.5 mmol/L 3.4 mmol/L Chloride Level 102 mmol/L 107 mmol/L Carbon Dioxide Level 27 mmol/L 26 mmol/L Anion Gap 5.0 mmol/L 5.0 mmol/L Blood Urea Nitrogen 16 mg/dl 13 mg/dl Creatinine 0.99 mg/dl 0.97 mg/dl Est Creatinine Clear Calc Drug Dose 81.9 ml/min 83.8 ml/min Estimated GFR () 93.6 95.9 Estimated GFR (Non- 80.7 82.7 BUN/Creatinine Ratio 15.8 13.5 Random Glucose 106 mg/dl 94 mg/dl Calcium Level 8.4 mg/dl 8.1 mg/dl Total Bilirubin 0.6 mg/dl 0.6 mg/dl Direct Bilirubin 0.2 mg/dl Aspartate Amino Transf (AST/SGOT) 75 U/L 50 U/L Alanine Aminotransferase (ALT/SGPT) 161 U/L 122 U/L Alkaline Phosphatase 227 U/L 187 U/L Total Protein 7.7 gm/dl 6.8 gm/dl Albumin 2.7 gm/dl 2.5 gm/dl Globulin 4.3 gm/dl Albumin/Globulin Ratio 0.6 Hepatitis B Surface Antigen NEG Hepatitis C Antibody NEG Bartonella henselae IgG Ab Titer Bartonella henselae IgM Ab Titer Bartonella arreola IgG Ab Titer Bartonella arreola IgM Ab Titer Test 12/30/17 09:[address] WITH CONTRAST CT DOSE: 308.89 mGy.cm HISTORY: Acute fever and sore throat. Right paratracheal fullness noted on chest radiographs of same day R paratracheal fullness, fever, sore throat, rigors TECHNIQUE: Multiaxial CT images of the chest were performed following the intravenous administration of contrast. A dose lowering technique was utilized adhering to the principles of ALARA. COMPARISON: Chest radiograph 12/29/2017. FINDINGS: Thyroid is homogeneous. There is multifocal bulky adenopathy about the chest including pathologically enlarged bilateral axillary and subpectoral lymph nodes with index right axillary lymph node measuring up to 2.2 x 1.8 cm on image 103 of series 4. Index pretracheal lymph node measures 2.1 x 1.5 cm on image 64 series 4, enlarged subcarinal lymph node measures 2.8 x 1.8 cm. Bulky adenopathy is seen within the prevascular, pretracheal, paratracheal and AP window distributions as well. Additionally, there is partially imaged bulky adenopathy of the upper abdomen within the region of the gastrohepatic ligament and ke hepatis. Heart is normal in size without pericardial effusion. Coronary arterial disease. Thoracic aorta is normal in both course and caliber. The pulmonary arterial tree appears unremarkable. There is no pneumothorax or pleural effusion. Mild groundglass opacity with subsegmental tree-in-bud nodularity of the left upper lobe. Respiratory motion limits evaluation of the lungs. Thickening with nodularity of the bilateral major fissures is noted. Additionally, scattered noncalcified pulmonary nodules are seen measuring up to 6 mm with the left lower lobe, image 205 series 4. 4 mm nodule of the lingula, image 129 series 4. 3 mm solid nodule of the right upper lobe, image 97 series 4. The liver appears enlarged, however is only partially imaged. Splenomegaly, measuring up to 14.8 cm. Mild bilateral gynecomastia. The bones appear intact. There are no suspicious lytic or blastic bony lesions identified. IMPRESSION: 1. Multifocal bulky adenopathy of the thorax as above, notably involving the mediastinum, tacos and bilateral subpectoral and axillary chains with partially imaged bulky adenopathy also present within the upper abdomen. Differential considerations would include lymphoproliferative disorder or metastatic disease from unknown primary. 2. Pleural thickening and nodularity of the bilateral major fissures is suspicious for lymphangitic spread of disease with infectious or inflammatory etiology also within the differential. A few scattered solid nodules of the lungs bilaterally measure up to 6 mm. Follow-up will be needed to further characterize. 3. Splenomegaly. Electronically signed by: Ke Hills M.D. 12/29/2017 12:34 PM Dictated Date/Time: 12/29/2017 12:23 PM Assessment & Plan 62-year-old male with a days of fever, rigors, and night sweats, with significant adenopathy in the neck, axilla, and chest. Clinical presentation more one of infectious process, however adenopathy more suggestive of lymphoproliferative disorder. Agree with need for biopsy, have ordered additional serologic studies. Would also send workup for potential of autoimmune disease given family history and recurrent skin rash. Will discuss with all involved. Will follow.
[2017-12-30] MEDS ORDERED: ACETAMINOPHEN IV 650 MG in EMPTY BAG 0 ML IV PRN (10:45)
--- NOTE | 2017-12-30 11:17 | Progress Note ---
Medicine Progress Note Date & Time of Visit: Dec 30, 2017 at 11:17. Subjective seen resting in bed, comfortable states he feels slightly better than yesterday denies dyspnea, cough, chest pain no abdominal pain feels some tenderness on inguinal lymph nodes denies other symptoms Objective Last 8 Hrs Date Time Temp Pulse Resp B/P (MAP) Pulse Ox O2 Delivery O2 Flow Rate FiO2 12/30/17 08:00 37.9 102 22 139/71 (93) 96 Room Air 12/30/17 04:00 96 Room Air 12/30/17 03:40 37.8 101 18 157/76 (103) 96 Room Air Physical Exam: General- oriented x3, not in distress, speaks in sentences with no effort Head- atraumatic Eyes- PERRL, EOMI, anicteric ENT- oropharynx clear Neck- supple, no JVD, no adenopathy, no thyromegaly Lungs- clear to auscultation bilaterally Heart- regular rhythm; no murmur, no gallop, normal rate Abdomen- normal bowel sounds, soft, nontender (+) inguinal LAD Extremities- no pretibial edema, no calf tenderness; peripheral pulses intact Neuro- alert, oriented x 3; no gross focal deficits Skin- warm & dry Laboratory Results: Last 24 Hours Test 12/30/17 06:02 12/30/17 08:10 12/30/17 09:09 12/30/17 09:42 White Blood Count 10.28 K/uL Red Blood Count 4.75 M/uL Hemoglobin 13.1 g/dL Hematocrit 38.3 % Mean Corpuscular Volume 80.6 fL Mean Corpuscular Hemoglobin 27.6 pg Mean Corpuscular Hemoglobin Concent 34.2 g/dl Platelet Count 175 K/uL Mean Platelet Volume 9.1 fL Neutrophils (%) (Auto) 70.2 % Lymphocytes (%) (Auto) 14.7 % Monocytes (%) (Auto) 10.3 % Eosinophils (%) (Auto) 3.9 % Basophils (%) (Auto) 0.4 % Neutrophils # (Auto) 7.22 K/uL Lymphocytes # (Auto) 1.51 K/uL Monocytes # (Auto) 1.06 K/uL Eosinophils # (Auto) 0.40 K/uL Basophils # (Auto) 0.04 K/uL RDW Standard Deviation 41.9 fL RDW Coefficient of Variation 14.3 % Immature Granulocyte % (Auto) 0.5 % Immature Granulocyte # (Auto) 0.05 K/uL Peripheral Blood Smear Path Consult Sodium Level 138 mmol/L Potassium Level 3.4 mmol/L Chloride Level 107 mmol/L Carbon Dioxide Level 26 mmol/L Anion Gap 5.0 mmol/L Blood Urea Nitrogen 13 mg/dl Creatinine 0.97 mg/dl Est Creatinine Clear Calc Drug Dose 83.8 ml/min Estimated GFR () 95.9 Estimated GFR (Non- 82.7 BUN/Creatinine Ratio 13.5 Random Glucose 94 mg/dl Calcium Level 8.1 mg/dl Total Bilirubin 0.6 mg/dl Aspartate Amino Transf (AST/SGOT) 50 U/L Alanine Aminotransferase (ALT/SGPT) 122 U/L Alkaline Phosphatase 187 U/L Total Protein 6.8 gm/dl Albumin 2.5 gm/dl Globulin 4.3 gm/dl Albumin/Globulin Ratio 0.6 Hepatitis B Surface Antigen NEG Hepatitis C Antibody NEG Bartonella henselae IgG Ab Titer Bartonella henselae IgM Ab Titer Bartonella arreola IgG Ab Titer Bartonella arreola IgM Ab Titer Date/Time Source Procedure Growth Status 12/30/17 06:18 Blood Blood Culture Pending Received 12/30/17 06:02 Blood Blood Culture Pending Received 12/30/17 09:42 Stool C.difficile Toxin B Gene (PCR) - Final No C. difficile toxin B gene detected Complete 12/30/17 09:42 Stool Shiga Toxin Test Pending Received 12/30/17 09:42 Stool Stool Culture Pending Received Assessment & Plan FEBRILE ILLNESS / ADENOPATHY s/p Mediastinoscopy Frozen Section: Lymphoma Dr. Rodriguez consulted LDH, Urine Acid ordered CT abdomen/pelvis recommended ff up official Pathology report on empiric Doxycycline ELEVATED TRANSAMINASES AND ALKALINE PHOSPHATASE improving monitor PALPITATIONS History of paroxysmal SVT. Pulse rate as high as 150 at home. Continue atenolol. resolved HYPERTENSION Continue atenolol. GERD Continue PPI. VTE PROPHYLAXIS SCDs RESUSCITATION STATUS Full code. DISPOSITION Anticipate d/c tomorrow if patient remains stable Current Inpatient Medications: Current Inpatient Medications Medications (Trade) Dose Ordered Sig/Selena Route Start Time Stop Time Status Last Admin Dose Admin Ioversol (Optiray 320) 111 ml UD PRN IV 12/29/17 10:45 01/02/18 10:44 Miscellaneous (Iv Fluids Completed) 1 ea PRN PRN N/A 12/29/17 14:15 12/29/18 14:14 Alprazolam (Xanax Tab) 0.25 mg BID PO 12/29/17 21:00 01/28/18 20:59 12/30/17 07:56 0.25 MG Atenolol (Tenormin Tab) 50 mg DAILY PO 12/30/17 09:00 01/29/18 08:59 12/30/17 07:59 50 MG Pantoprazole Sodium (Protonix Tab) 40 mg QAM PO 12/30/17 09:00 01/29/18 08:59 12/30/17 07:59 40 MG Acetaminophen (Tylenol Tab) 650 mg Q6H PRN PO 12/29/17 21:45 01/28/18 13:59 Doxycycline Hyclate 100 mg/ Dextrose 110 ml @ 50 mls/hr BID IV 12/30/17 09:00 01/01/18 08:59 12/30/17 08:03 50 MLS/HR Potassium Chloride/Dextrose/ Sod Cl 1,000 ml @ 80 mls/hr [id number] IV 12/30/17 07:45 01/29/18 07:44 12/30/17 09:36 80 MLS/HR Acetaminophen 650 mg/Empty Bag 65 ml @ 260 mls/hr Q6H PRN IV 12/30/17 10:45 01/29/18 10:44 UNV
[2017-12-30] MEDS ORDERED: ONDANSETRON INJ 2 MG/ML 2 ML VIAL ONE (12:05)
[2017-12-30] MEDS ORDERED: GLYCOPYRROLATE INJ 0.2 MG/ML VIAL ONE (12:05)
[2017-12-30] MEDS ORDERED: FENTANYL CITRATE INJ 50 MCG/1 ML 2 ML VIAL ONE (12:05)
[2017-12-30] MEDS ORDERED: DEXAMETHASONE SOD INJ 4 MG/ML VIAL ONE (12:05)
[2017-12-30] MEDS ORDERED: LIDOCAINE HCL 2% 2 ML VIAL (20MG/ML) ONE (12:05)
[2017-12-30] MEDS ORDERED: MIDAZOLAM HCL 1 MG/ML 2ML VIAL ONE (12:05)
[2017-12-30] MEDS ORDERED: PROPOFOL IV EMULSION 10 MG/ML 20 ML VIAL IV ONE (12:05)
[2017-12-30] MEDS ORDERED: NEOSTIGMINE METHYLSULFATE 5 MG/5 ML SYR ONE (12:05)
--- NOTE | 2017-12-30 12:58 | Anesthesiology Progress Note ---
Anesthesia Progress Note Date of Service Dec 30, 2017. Progress Notes Arterial line placed in OR 8 after induction of GA at 1235 in preparation for mediastinoscopy with Dr. Estrada. Right wrist prepped with chlorhexidine and draped with sterile drape. 20 G angiocath placed under sterile technique utilizing sterile gloves, surgical hats and masks. Catheter threaded using seldinger technique with return of pulsatile, bright red blood. Site covered with occlusive dressing and taped in place. Waveform consistent with correct arterial placement. After placement, fingers of right hand had normal perfusion. Patient tolerated procedure well without complications. Brittney Gaines MD, PhD Anesthesiology
[2017-12-30] MEDS ORDERED: ATROPINE SULFATE 0.1 MG/ML 5ML SYR IV PRN (13:00)
[2017-12-30] MEDS ORDERED: ONDANSETRON INJ 2 MG/ML 2 ML VIAL IV PRN (13:00)
[2017-12-30] MEDS ORDERED: EpHEDrine SULFATE INJ 50 MG/ML AMP IV PRN (13:00)
--- NOTE | 2017-12-30 13:28 | [facility] Post Operative Brief Note ---
Immediate Operative Summary Operative Date Dec 30, 2017. Pre-Operative Diagnosis Mediastinal adenopathy Post-Operative Diagnosis lymphoma Procedure(s) Performed videomediastinoscopy with biopsy Surgeon Dr. Estrada Icu Staff Nurse Surgeon(s) Kodak Zapata PA-C Estimated Blood Loss 50 cc Findings Consistent with Post-Op Diagnosis Specimens lymph nodes
[2017-12-30] MEDS ORDERED: MoRPHine SULFATE 2 MG/ML CARP IV PRN (13:30)
[2017-12-30] MEDS ORDERED: OXYCODONE HCL IR 5 MG TAB (IMMEDIATE RELEASE) PO PRN (13:30)
[2017-12-30] MEDS: FENTANYL CITRATE INJ 50 MCG/1 ML 2 ML VIAL IV PRN ×2 (13:58→14:05)
--- NOTE | 2017-12-30 14:08 | DIAGNOSTIC IMAGING REPORT ---
CHEST ONE VIEW PORTABLE CLINICAL HISTORY: mediastinoscopy post procedure COMPARISON STUDY: 12/29/2017 FINDINGS: No significant pneumothorax post procedure. Subsegmental atelectasis mid left lung. Subtle lucency about the right hemidiaphragm which is been provided present previously. No significant pneumomediastinum. IMPRESSION: Scattered atelectasis. No significant postprocedural pneumothorax The above report was generated using voice recognition software. It may contain grammatical, syntax or spelling errors. Electronically signed by: Gerald Wilcox M.D. 12/30/2017 2:07 PM Dictated Date/Time: 12/30/2017 2:06 PM
--- NOTE | 2017-12-30 14:31 | Anesthesiology Progress Note ---
Anesthesia Post Op Note Date & Time Dec 30, 2017 at 14:30 Vital Signs Pain Intensity: 2 Vital Signs Past 12 Hours Date Time Temp Pulse Resp B/P (MAP) Pulse Ox O2 Delivery O2 Flow Rate FiO2 12/30/17 14:15 93 18 143/74 96 Nasal Cannula 3 12/30/17 14:05 93 18 149/73 97 Oxymask 7 12/30/17 13:55 96 18 148/77 97 Oxymask 7 12/30/17 13:45 36.1 94 14 147/84 97 Oxymask 7 12/30/17 11:58 37.4 90 18 129/72 (91) 96 Room Air 12/30/17 11:46 37.5 103 18 159/83 (108) 97 12/30/17 08:00 37.9 102 22 139/71 (93) 96 Room Air 12/30/17 04:00 96 Room Air 12/30/17 03:40 37.8 101 18 157/76 (103) 96 Room Air Notes Mental Status: alert / awake / arousable, participated in evaluation Pt Amnestic to Procedure: Yes Nausea / Vomiting: adequately controlled Pain: adequately controlled Airway Patency, RR, SpO2: stable & adequate BP & HR: stable & adequate Hydration State: stable & adequate Anesthetic Complications: no major complications apparent
--- NOTE | 2017-12-30 18:29 | OPERATIVE REPORT ---
DATE OF OPERATION: 12/30/2017 PREOPERATIVE DIAGNOSIS: Mediastinal lymphadenopathy. POSTOPERATIVE DIAGNOSIS: Probable lymphoma. PROCEDURE: Video mediastinoscopy. SURGEON: Henry Estrada MD. DIRECTOR OF PERIOPERATIVE SERVICES: GENE Duarte. (Mr. Zapata was present for the whole case and was instrumental in first assisting and closing the incision at the end). ANESTHESIA: General anesthesia with endotracheal intubation. INDICATIONS FOR PROCEDURE AND FINDINGS: This is a 62-year-old male who presented with about an 8-10 day history of fevers and diffuse myalgias and arthralgias. He underwent a CT scan in the ER yesterday and was noted to have marked mediastinal adenopathy. I had a long talk with him and I felt that a video mediastinoscopy should be offered as opposed to an endobronchial ultrasound. On 12/30/2017, the patient was brought to the operating room and underwent uncomplicated video mediastinoscopy. I biopsied right level 2, right level 4 and level 7 nodes. Frozen section of these were consistent with a lymphoma. We harvested a good amount of tissue. There is very little in the way of bleeding. We did not biopsy anything on the left side. Bleeding was controlled with the cautery in the subcarinal and right paratracheal area. He tolerated well. DESCRIPTION OF THE PROCEDURE: The patient brought to operating room, laid in supine position. General anesthesia induced. Endotracheal intubation was performed. The patient's neck was extended and he was prepped and draped in usual sterile fashion. After appropriate timeout had been called and prophylactic antibiotics given, incision was made one fingerbreadth above the sternal notch transversely. This was taken to the strap muscles, which were divided in the direction of their fibers. The pretracheal plane was then entered and bluntly developed and then the video mediastinoscope was inserted. Immediately we coming into the level 2 area on the right there was a large fairly firm lymph node which was biopsied several times and sent for frozen. I then went down to the level 4 area and there was noted to be some necrotic nodes actually. I biopsied the right level 4 and then identified the abdi and went down to the level 7 area and biopsied this several times. I put 2 clips on a fairly large feeding vessel in the subcarinal area. We really had very little in the way of bleeding. I did use the cautery in the subcarinal and right paratracheal area. I slowly removed the video mediastinoscope and saw no further evidence of bleeding. A 3-0 Vicryl was used in a running fashion to reapproximate strap muscles. a 4-0 Monocryl was used in running subcuticular fashion to approximate the wound edges. He tolerated it well. I attest to the content of the Intraoperative Record and any orders documented therein. Any exception s are noted below.
--- NOTE | 2017-12-30 20:37 | Medical Consult ---
Consultation Date of Consultation: Dec 30, 2017. Attending Physician: Román Banuelos MD Reason for Consultation: lymphadenopathy History of Present Illness 62 year old male admitted with intermittent fevers and rigors, malaise and night sweats and swollen glands and tenderness in the neck and left axilla and bilateral groin areas. He states that symptoms started about 7 to 8 days ago. He states that he had temperatures up to 101.2 at home and took 1 to 2 tylenol per day when he got fever and that it would resolve but return again. He states that approximately 8 months ago he had noticed swollen glands in his neck but felt that they went away until he felt them again 8 days ago. He has fatigue. He also notice a nonproductive cough and myalgias for the past 8 days but states that today he has been feeling better and has not had the rigors or sweats today. He denies any abdominal pain or vomiting or change in bowel habits or melena or hematochezia. He denies any headache and no numbness or tingling in the fingers or toes or weakness. He denies any bleeding or bruising symptoms He had a CXR which showed no focal consolidation but soft tissue fullness of the right paratracheal region was seen and adenopathy could not be excluded He had a CT scan chest which showed: "1. Multifocal bulky adenopathy of the thorax - see report for sizes, notably involving the mediastinum, tacos and bilateral subpectoral and axillary chains with partially imaged bulky adenopathy also present within the upper abdomen. Differential considerations would include lymphoproliferative disorder or metastatic disease from unknown primary. 2. Pleural thickening and nodularity of the bilateral major fissures is suspicious for lymphangitic spread of disease with infectious or inflammatory etiology also within the differential. A few scattered solid nodules of the lungs bilaterally measure up to 6 mm. Follow-up will be needed to further characterize. 3. Splenomegaly. " He was evaluated by Dr Estrada and underwent video mediastinoscopy with biopsy of lymph node - pathology result is pending Per the operative record "frozen section was consistent with a lymphoma" but pathology report is pending and there is no mention as to the type of lymphoma. ECOG PS 0 Past Medical/Surgical History PMH: HTN, Anxiety, hyperlipidemia, GERD, paroxysmal SVT PSH: dental surgery, colonoscopy, Medianstinoscopy/LN biopsy, Medical Problems: (1) Chest mass Status: Acute (2) Chills Status: Acute (3) Fever Status: Acute Family History Colon cancer GRANDFATHER Heart disease FATHER Kidney disease MOTHER Prostate cancer FATHER FH: father had prostate cancer he denies any FH of lymphoma or blood disorders but he states that his has history of lymphoma and was treated by Dr Alamo Social History Smoking Status: Former Smoker Smokeless Tobacco Use: No Alcohol Use: occasionally Drug Use: none Marital Status: Housing Status: lives with family Allergies Coded Allergies: No Known Allergies (Unverified , 12/29/17) Current Inpatient Medications Current Inpatient Medications Medications (Trade) Dose Ordered Sig/Selena Route Start Time Stop Time Status Last Admin Dose Admin Ioversol (Optiray 320) 111 ml UD PRN IV 12/29/17 10:45 01/02/18 10:44 Miscellaneous (Iv Fluids Completed) 1 ea PRN PRN N/A 12/29/17 14:15 12/29/18 14:14 Alprazolam (Xanax Tab) 0.25 mg BID PO 12/29/17 21:00 01/28/18 20:59 12/30/17 07:56 0.25 MG Atenolol (Tenormin Tab) 50 mg DAILY PO 12/30/17 09:00 01/29/18 08:59 12/30/17 07:59 50 MG Pantoprazole Sodium (Protonix Tab) 40 mg QAM PO 12/30/17 09:00 01/29/18 08:59 12/30/17 07:59 40 MG Acetaminophen (Tylenol Tab) 650 mg Q6H PRN PO 12/29/17 21:45 01/28/18 13:59 Doxycycline Hyclate 100 mg/ Dextrose 110 ml @ 50 mls/hr BID IV 12/30/17 09:00 01/01/18 08:59 12/30/17 08:03 50 MLS/HR Potassium Chloride/Dextrose/ Sod Cl 1,000 ml @ 80 mls/hr [id number] IV 12/30/17 07:45 01/29/18 07:44 12/30/17 09:36 80 MLS/HR Acetaminophen 650 mg/Empty Bag 65 ml @ 260 mls/hr Q6H PRN IV 12/30/17 10:45 01/29/18 10:44 Oxycodone HCl (Roxicodone Immediate Rel Tab) 5 mg Q6H PRN PO 12/30/17 13:30 01/13/18 13:29 Morphine Sulfate (MoRPHine SULFATE INJ) 2 mg Q3H PRN IV 12/30/17 13:30 01/13/18 13:29 Review of Systems Constitutional: + fever, + chills, + sweats (see HPI), + fatigue, No weight loss, No weakness Eyes: No worsening of vision ENT: No hearing loss, No unusual epistaxis, No nasal symptoms, No sore throat, No trouble swallowing Respiratory: + cough (nonproductive), No sputum, No wheezing, No shortness of breath, No dyspnea on exertion, No dyspnea at rest, No hemoptysis Cardiovascular: No chest pain, No edema Abdomen: + problem reported (noticed early satiety/feeling full recently), No pain, No nausea, No vomiting, No diarrhea, No constipation, No GI bleeding Musculoskeletal: + problem reported (myalgias at home ) Genitourinary - Male: No hematuria, No dysuria, No urinary frequency Neurologic: No weakness, No numbness/tingling, No vertigo Psychiatric: No depression symptoms Endocrine: + fatigue, No excessive urination Hematologic / Lymphatic: + swollen lymph nodes, + night sweats, No abnormal bleeding/bruising Integumentary: No rash, No itch Physical Exam Date Time Temp Pulse Resp B/P (MAP) Pulse Ox O2 Delivery O2 Flow Rate FiO2 12/30/17 18:55 36.7 86 16 133/71 (91) 96 Room Air 12/30/17 16:11 92 14 98 Nasal Cannula 2.0 12/30/17 16:00 Nasal Cannula 2.0 12/30/17 15:41 92 9 123/73 (90) 2 12/30/17 15:11 93 15 Nasal Cannula 3.0 12/30/17 15:10 37.5 94 20 127/73 (91) 97 Nasal Cannula 3.0 12/30/17 14:15 93 18 143/74 96 Nasal Cannula 3 12/30/17 14:05 93 18 149/73 97 Oxymask 7 12/30/17 13:55 96 18 148/77 97 Oxymask 7 12/30/17 13:45 36.1 94 14 147/84 97 Oxymask 7 12/30/17 12:00 96 Room Air 12/30/17 11:58 37.4 90 18 129/72 (91) 96 Room Air 12/30/17 11:46 37.5 103 18 159/83 (108) 97 12/30/17 08:00 96 Room Air 12/30/17 08:00 37.9 102 22 139/71 (93) 96 Room Air 12/30/17 04:00 96 Room Air 12/30/17 03:40 37.8 101 18 157/76 (103) 96 Room Air 12/30/17 00:00 98 Room Air 12/29/17 23:59 37.3 83 16 122/62 (82) 96 Room Air 12/29/17 20:39 37.8 95 18 149/75 (99) 95 Room Air 12/29/17 20:00 97 Room Air General Appearance: WD/WN, no apparent distress Head: normocephalic, atraumatic Eyes: PERRL, EOMI, sclerae normal ENT: + pertinent finding (no erythema or exudate no thrush) Neck: supple, no JVD, + adenopathy present ( right posterior cervical and shotty bilateral anterior cervical ) Respiratory/Chest: chest non-tender, lungs clear, normal breath sounds, no respiratory distress, no accessory muscle use Cardiovascular: regular rate, rhythm, no edema, no JVD, no murmur Abdomen/GI: normal bowel sounds, non tender, soft, + pertinent finding (no guarding or rebound) Extremities/Musculoskelatal: no calf tenderness, no pedal edema, non-tender Neurologic/Psych: alert, oriented x 3, + pertinent finding (grossly nonfocal) Skin: warm/dry, no rash Lymphatic: + pertinent finding (+palpable adenopathy cervical axillary and inguinal areas bilaterally, nontender except for his cervical, but patient states had tenderness of groin areas ) Laboratory Results Last 24 Hours Test 12/30/17 06:02 12/30/17 08:10 12/30/17 09:09 12/30/17 09:42 White Blood Count 10.28 K/uL Red Blood Count 4.75 M/uL Hemoglobin 13.1 g/dL Hematocrit 38.3 % Mean Corpuscular Volume 80.6 fL Mean Corpuscular Hemoglobin 27.6 pg Mean Corpuscular Hemoglobin Concent 34.2 g/dl Platelet Count 175 K/uL Mean Platelet Volume 9.1 fL Neutrophils (%) (Auto) 70.2 % Lymphocytes (%) (Auto) 14.7 % Monocytes (%) (Auto) 10.3 % Eosinophils (%) (Auto) 3.9 % Basophils (%) (Auto) 0.4 % Neutrophils # (Auto) 7.22 K/uL Lymphocytes # (Auto) 1.51 K/uL Monocytes # (Auto) 1.06 K/uL Eosinophils # (Auto) 0.40 K/uL Basophils # (Auto) 0.04 K/uL RDW Standard Deviation 41.9 fL RDW Coefficient of Variation 14.3 % Immature Granulocyte % (Auto) 0.5 % Immature Granulocyte # (Auto) 0.05 K/uL Peripheral Blood Smear Path Consult Sodium Level 138 mmol/L Potassium Level 3.4 mmol/L Chloride Level 107 mmol/L Carbon Dioxide Level 26 mmol/L Anion Gap 5.0 mmol/L Blood Urea Nitrogen 13 mg/dl Creatinine 0.97 mg/dl Est Creatinine Clear Calc Drug Dose 83.8 ml/min Estimated GFR () 95.9 Estimated GFR (Non- 82.7 BUN/Creatinine Ratio 13.5 Random Glucose 94 mg/dl Calcium Level 8.1 mg/dl Total Bilirubin 0.6 mg/dl Aspartate Amino Transf (AST/SGOT) 50 U/L Alanine Aminotransferase (ALT/SGPT) 122 U/L Alkaline Phosphatase 187 U/L Total Protein 6.8 gm/dl Albumin 2.5 gm/dl Globulin 4.3 gm/dl Albumin/Globulin Ratio 0.6 Hepatitis B Surface Antigen NEG Hepatitis C Antibody NEG Bartonella henselae IgG Ab Titer Bartonella henselae IgM Ab Titer Bartonella arreola IgG Ab Titer Bartonella arreola IgM Ab Titer Test 12/30/17 13:07 12/30/17 19:08 Assessment & Plan 62 year old male presented with fatigue, malaise, fever and night sweats and soreness of his axillary areas, groin and neck, found to have lymphadenopathy involving multiple areas including the mediastinum, axillary areas and upper abdomen as well as splenomegaly He underwent video mediastinoscopy with biopsy. Pathology is pending. Frozen section was consistent with a lymphoma per the operative record Follow up pathology and flow cytometry for final diagnosis and for further characterization as to the type of lymphoma as that would direct his treatment. I had a lengthy discussion with the patient and his daughter at bedside and spoke to Dr Christian as well I discussed with them that treatment of lymphoma depends on the diagnosis - type of lymphoma Recommend check CT neck and CT abdomen and pelvis with contrast when feasible. Recommend continue IV hydration Recommend check LDH and uric acid Recommend check Hepatitis B screen and HIV screen if patient agrees. Hepatitis B screen is pending and Hep C screen was negative I also recommended check Echo to evaluate his cardiac function. I discussed with the patient that he will need a bone marrow aspirate and biopsy as well to complete the staging workup and PET-CT scan can be considered outpatient He is familiar with bone marrow aspirate and biopsy. He had wanted to see Dr Alamo as his had been treated by Dr Alamo, but Dr Alamo is out of the office until next week. If uric acid level is elevated would recommend adding allopurinol 300mg by mouth daily and continue hydration Thank you for consult.
[2017-12-30] MEDS ORDERED: OPTIRAY 320 IV PRN (21:15)
[2017-12-30] MEDS ORDERED: ALPRAZOLAM 0.25 MG TAB PO ONE (21:58)
[2017-12-31] MEDS: D5NSS + 20MEQ KCL 1,000 ML IV SCH ×2 (03:02→07:53)
[2017-12-31 03:42] VITALS: BP 139/75; PULSE 90; TEMP 36.7; O2SAT 96
[2017-12-31 05:45] LABS: PHOSPHORUS 2.4 mg/dl (2.5-4.9)
--- NOTE | 2017-12-31 07:40 | DIAGNOSTIC IMAGING REPORT ---
CT SCAN OF THE ABDOMEN AND PELVIS WITH IV CONTRAST CLINICAL HISTORY: Lymphoma. COMPARISON STUDY: No priors. TECHNIQUE: Following the IV administration of 94 cc of Optiray 320, CT scan of the abdomen and pelvis is performed from the lung bases to the proximal femora. Images are reviewed in the axial, sagittal, and coronal planes. IV contrast was administered without complication. A dose lowering technique was utilized adhering to the principles of ALARA. FINDINGS: Lung bases: The heart is mildly enlarged and without pericardial effusion. There are coronary artery calcifications. There are trace pleural effusions with dependent atelectasis. A 7 mm pleural-based nodule seen at the left lung base on image #76. A tiny hiatal hernia is identified. Hilar adenopathy is partially visualized. The largest hilar node identified measures 1.8 cm in short axis. An enlarged subcarinal node is partially imaged and measures 2.0 cm in short axis. Liver: The contrast-enhanced liver is normal in size, contour, and attenuation. There is no intrahepatic biliary ductal dilatation. The hepatic veins and portal veins are patent. Gallbladder: Contracted. Spleen: The spleen is mildly enlarged, measuring 14.6 cm in length. Pancreas: Unremarkable. Adrenal glands: Unremarkable. Kidneys: The contrast enhanced kidneys are atrophic and without hydronephrosis. The kidneys enhance symmetrically. Small renal cysts measure up to 1.6 cm. Additional subcentimeter cortical hypodensities also likely represent cysts but are too small for definitive characterization. A single nonobstructing calculus is present in each kidney. These measure up to 4 mm. Abdominal vasculature: The abdominal aorta is normal in course and caliber noting moderate to advanced atherosclerotic calcification. Bowel: There is mild sigmoid diverticulosis without CT evidence of acute diverticulitis. No bowel obstruction is seen. The appendix is normal as visualized. Peritoneum: There is a small volume of free fluid in the paracolic gutters. No intraperitoneal free air is seen. Extraperitoneal fluid is also seen in the pelvis. Lymphadenopathy: There are enlarged upper abdominal nodes. Gastrohepatic and portacaval nodes on image #140 measure 4.4 x 2.9 cm in aggregate dimension. There are numerous mildly enlarged mesenteric lymph nodes. A kodak mass in the right lower quadrant on image #269 measures 5.2 x 3.5 cm in aggregate dimension. There are numerous mildly enlarged retroperitoneal and iliac chain lymph nodes. An aortocaval node on image #243 measures 2.0 x 1.4 cm. A left iliac chain node on image #357 measures 1.7 x 1.7 cm. There is bilateral pelvic sidewall adenopathy. The largest node is on the left seen on image #409 and measures 3.3 x 2.0 cm. There is bilateral inguinal lymphadenopathy. A left inguinal node on image #435 and measures 3.0 x 1.8 cm. Pelvic viscera: The bladder, prostate, and seminal vesicles are normal as visualized. Skeletal structures: The skeletal structures are osteopenic. No lytic or blastic lesions are seen. Soft tissues: There is mild body wall edema. IMPRESSION: 1. There is upper abdominal, mesenteric, retroperitoneal, pelvic sidewall, and inguinal lymphadenopathy consistent with the reported clinical history of lymphoma. 2. Mediastinal and hilar adenopathy is partially visualized. 3. Splenomegaly. 4. Trace pleural effusions. 5. There is a small volume of free fluid in the paracolic gutters bilaterally. 6. There is a 7 mm pleural-based nodule in the left lower lobe. 8. Additional findings as above. Electronically signed by: Kong Aparicio M.D. 12/31/2017 7:38 AM Dictated Date/Time: 12/31/2017 7:26 AM
--- NOTE | 2017-12-31 07:40 | DIAGNOSTIC IMAGING REPORT ---
CT neck with intravenous contrast HISTORY: evaluate cervical lymphadenopathy/lymphoma staging TECHNIQUE: Multiaxial CT images of the neck were performed following use of intravenous contrast. COMPARISON STUDY: None. FINDINGS: The visualized brain parenchyma and orbits are unremarkable. No pneumothorax. Small amount of pneumomediastinum. This is also soft tissue gas tracking into the neck. This is new from the 12/29/2017 chest CTA. The parotid and submandibular glands are within normal limits. Prevertebral soft tissues and the epiglottis are normal in thickness. The major cervical vessels enhance normally. Bilateral cervical lymphadenopathy. There is also mild supraclavicular adenopathy. Enlarged bilateral infraclavicular/subpectoral lymph nodes. Dominant left infraclavicular lymph node measures 2.5 x 1.9 cm. Superior mediastinal lymphadenopathy is partially visualized. The thyroid gland enhances normally. Dominant cervical lymph node is seen on the right (level III) measures 2.0 x 1.6 cm. There are also mildly enlarged submandibular and submental lymph nodes. The airway remains patent. No suspicious lytic or blastic osseous lesions. Paranasal sinuses and mastoid air cells are clear. IMPRESSION: 1. Cervical, axillary, and upper mediastinal lymphadenopathy as described above. This is highly suspicious for a lymphoma. 2. Interval development of soft tissue gas within the neck and extending into the mediastinum consistent with pneumomediastinum. This is new from the 12/29/[address] Correlate for interval procedures to account for the soft tissue gas. Electronically signed by: Lico Dickson M.D. 12/31/2017 7:39 AM Dictated Date/Time: 12/31/2017 7:30 AM
[2017-12-31] MEDS: DOXYCYCLINE IV 100 MG in DEXTROSE 5% 100ML 100 ML IV SCH ×2 (07:52→23:06)
[2017-12-31] MEDS: PANTOprazole SOD 40 MG TAB PO SCH (07:53)
[2017-12-31 07:54] VITALS: BP 138/71; PULSE 95; TEMP 37; O2SAT 96
[2017-12-31 08:22] LABS: HEMATOCRIT 35.9 % (42-52); HEMOGLOBIN 12.2 g/dL (14.0-18.0); MEAN CELL VOLUME 80.9 fL (80-100); MEAN CORPUSCULAR HEMOGLOBIN 27.5 pg (25-34); RED CELL DISTRIBUTION WIDTH CV 14.5 % (11.5-14.5); RED CELL DISTRIBUTION WIDTH SD 42.7 fL (36.4-46.3); WHITE BLOOD COUNT 12.56 K/uL (4.8-10.8)
[2017-12-31] MEDS ORDERED: LORAZEPAM 2 MG/ML 1 ML VIAL IV STA (08:35)
[2017-12-31] MEDS ORDERED: LORAZEPAM 2 MG/ML 1 ML VIAL IV PRN (08:45)
--- NOTE | 2017-12-31 08:56 | Progress Note ---
Medicine Progress Note Date & Time of Visit: Dec 31, 2017 at 08:50. Subjective resting in bed, appears comfortable no fever overnight was not able to sleep well last night per family this AM, no chest pain, dyspnea, dizziness, nausea, palpitations appears anxious no other symptoms Objective Last 8 Hrs Date Time Temp Pulse Resp B/P (MAP) Pulse Ox O2 Delivery O2 Flow Rate FiO2 12/31/17 07:54 37.0 95 16 138/71 (93) 96 Room Air 12/31/17 04:00 Room Air 12/31/17 03:42 36.7 90 18 139/75 (96) 96 Physical Exam: General- oriented x3, not in distress, speaks in sentences with no effort Eyes- anicteric Neck- dressing in place, mid-anterior part of the neck Lungs- clear breath sounds bilaterally Heart- regular rhythm; no murmur, normal rate Abdomen- normal bowel sounds, soft, nontender Extremities- no pretibial edema, no calf tenderness Neuro- alert, oriented x 3; no gross focal deficits Skin- warm & dry Laboratory Results: Last 24 Hours Test 12/30/17 09:09 12/30/17 09:42 12/30/17 13:07 12/30/17 19:53 Bartonella henselae IgG Ab Titer Bartonella henselae IgM Ab Titer Bartonella arreola IgG Ab Titer Bartonella arreola IgM Ab Titer Uric Acid 5.7 mg/dl Lactate Dehydrogenase 606 U/L Test 12/31/17 04:45 12/31/17 08:39 White Blood Count 12.56 K/uL Red Blood Count 4.44 M/uL Hemoglobin 12.2 g/dL Hematocrit 35.9 % Mean Corpuscular Volume 80.9 fL Mean Corpuscular Hemoglobin 27.5 pg Mean Corpuscular Hemoglobin Concent 34.0 g/dl Platelet Count 128 K/uL Mean Platelet Volume 9.9 fL RDW Standard Deviation 42.7 fL RDW Coefficient of Variation 14.5 % Uric Acid 5.0 mg/dl Phosphorus Level 2.4 mg/dl Lactate Dehydrogenase 587 U/L Date/Time Source Procedure Growth Status 12/30/17 09:42 Stool C.difficile Toxin B Gene (PCR) - Final No C. difficile toxin B gene detected Complete 12/30/17 09:42 Stool Shiga Toxin Test Pending Received 12/30/17 09:42 Stool Stool Culture Pending Received Assessment & Plan FEBRILE ILLNESS / ADENOPATHY 12/30/17 s/p Mediastinoscopy Frozen Section: Lymphoma Dr. Rodriguez consulted CT abdomen/pelvis: diffuse lymphadenopathy ff up official Pathology report this morning discussed with Dr. Rodriguez- next step dependent on official Pathology report on empiric Doxycycline ELEVATED TRANSAMINASES AND ALKALINE PHOSPHATASE improving monitor PALPITATIONS History of paroxysmal SVT. Pulse rate as high as 150 at home. Continue atenolol. resolved HYPERTENSION Continue atenolol. GERD Continue PPI. VTE PROPHYLAXIS SCDs RESUSCITATION STATUS Full code. DISPOSITION pending awaiting further recommendations per Oncology Current Inpatient Medications: Current Inpatient Medications Medications (Trade) Dose Ordered Sig/Selena Route Start Time Stop Time Status Last Admin Dose Admin Ioversol (Optiray 320) 111 ml UD PRN IV 12/29/17 10:45 01/02/18 10:44 Miscellaneous (Iv Fluids Completed) 1 ea PRN PRN N/A 12/29/17 14:15 12/29/18 14:14 Atenolol (Tenormin Tab) 50 mg DAILY PO 12/30/17 09:00 01/29/18 08:59 12/31/17 07:53 50 MG Pantoprazole Sodium (Protonix Tab) 40 mg QAM PO 12/30/17 09:00 01/29/18 08:59 12/31/17 07:53 40 MG Acetaminophen (Tylenol Tab) 650 mg Q6H PRN PO 12/29/17 21:45 01/28/18 13:59 Doxycycline Hyclate 100 mg/ Dextrose 110 ml @ 50 mls/hr BID IV 12/30/17 09:00 01/01/18 08:59 12/31/17 07:52 50 MLS/HR Potassium Chloride/Dextrose/ Sod Cl 1,000 ml @ 80 mls/hr [id number] IV 12/30/17 07:45 01/29/18 07:44 12/31/17 07:53 80 MLS/HR Acetaminophen 650 mg/Empty Bag 65 ml @ 260 mls/hr Q6H PRN IV 12/30/17 10:45 01/29/18 10:44 Oxycodone HCl (Roxicodone Immediate Rel Tab) 5 mg Q6H PRN PO 12/30/17 13:30 01/13/18 13:29 Morphine Sulfate (MoRPHine SULFATE INJ) 2 mg Q3H PRN IV 12/30/17 13:30 01/13/18 13:29 Ioversol (Optiray 320) 100 ml UD PRN IV 12/30/17 21:15 01/03/18 21:14 Lorazepam (Ativan Inj) 0.5 mg Q4H PRN IV 12/31/17 08:45 01/30/18 08:44 Alprazolam (Xanax Tab) 0.5 mg BID PO 12/31/17 21:00 01/28/18 20:59
[2017-12-31 09:20] LABS: MEAN PLATELET VOLUME 10.1 fL (7.4-10.4); PLATELET COUNT 197 K/uL (130-400)
[2017-12-31 09:22] LABS: BASO % 0.2 %; BASO ABS # 0.02 K/uL (0-0.2); IG# 0.08 K/uL (0.00-0.02); LYMPH % 9.2 %; LYMPH ABS # 1.15 K/uL (1.2-3.4); MONO % 7.6 %; MONO ABS # 0.95 K/uL (0.11-0.59); NEUT % 82.4 %; NEUT ABS # 10.36 K/uL (1.4-6.5)
--- NOTE | 2017-12-31 09:23 | Surgery Progress Note ---
Subjective Date of Service: Dec 31, 2017. Pt. denies dysphagia or SOB. No pain issues since surgery. Objective Vitals Date Time Temp Pulse Resp B/P (MAP) Pulse Ox O2 Delivery O2 Flow Rate FiO2 12/31/17 07:54 37.0 95 16 138/71 (93) 96 Room Air 12/31/17 04:00 Room Air 12/31/17 03:42 36.7 90 18 139/75 (96) 96 12/30/17 23:59 Room Air 12/30/17 23:57 37.0 92 18 137/78 (97) 96 Room Air 12/30/17 20:00 Room Air 12/30/17 18:55 36.7 86 16 133/71 (91) 96 Room Air 12/30/17 16:11 92 14 98 Nasal Cannula 2.0 12/30/17 16:00 Nasal Cannula 2.0 12/30/17 15:41 92 9 123/73 (90) 2 12/30/17 15:11 93 15 Nasal Cannula 3.0 12/30/17 15:10 37.5 94 20 127/73 (91) 97 Nasal Cannula 3.0 12/30/17 14:15 93 18 143/74 96 Nasal Cannula 3 12/30/17 14:05 93 18 149/73 97 Oxymask 7 12/30/17 13:55 96 18 148/77 97 Oxymask 7 12/30/17 13:45 36.1 94 14 147/84 97 Oxymask 7 12/30/17 12:00 96 Room Air 12/30/17 11:58 37.4 90 18 129/72 (91) 96 Room Air 12/30/17 11:46 37.5 103 18 159/83 (108) 97 Physical Exam General: + well developed, + well nourished, No distress CV: + RRR Pulmonary: + lungs clear, No accessory muscle use, No respiratory distress Neurologic: + alert & oriented x 3 Additional Notes: No crepitus or swelling of neck.throat Assessment & Plan 62 year old male with mediastinal adenopathy -mediastinoscopy performed on 12/30/17: -preliminary path shows probable lymphoma -heme/onc consulted: -currently awaiting final path and completing staging work-up -treatment plan will be based on path results and stating OTHER -we will call pt. for f/u appt. approx 1 week following d/c
[2017-12-31 09:27] LABS: BLOOD UREA NITROGEN 11 mg/dl (7-18); CALCIUM 7.9 mg/dl (8.5-10.1); CARBON DIOXIDE 26 mmol/L (21-32); CREATININE 0.99 mg/dl (0.60-1.40); GLUCOSE 141 mg/dl (70-99); POTASSIUM 3.8 mmol/L (3.5-5.1); SODIUM 139 mmol/L (136-145)
[2017-12-31 09:37] LABS: ALBUMIN 2.2 gm/dl (3.4-5.0); ALKALINE PHOSPHATASE 151 U/L (45-117); ALT/SGPT 79 U/L (12-78); AST/SGOT 41 U/L (15-37); TOTAL PROTEIN 6.6 gm/dl (6.4-8.2)
[2017-12-31] MEDS: POT PHOSPHATE MONOBASIC W/ SOD TAB PO SCH ×4 (09:45→23:07)
[2017-12-31] MEDS: SODIUM CHLORIDE 0.9% 1000ML 1,000 ML IV SCH ×2 (09:50→16:05)
--- NOTE | 2017-12-31 09:53 | Anesthesiology Progress Note ---
Anesthesia Post Op Note Date & Time Dec 31, 2017 at 09:52 Vital Signs Pain Intensity: 1.0 Vital Signs Past 12 Hours Date Time Temp Pulse Resp B/P (MAP) Pulse Ox O2 Delivery O2 Flow Rate FiO2 12/31/17 07:54 37.0 95 16 138/71 (93) 96 Room Air 12/31/17 04:00 Room Air 12/31/17 03:42 36.7 90 18 139/75 (96) 96 12/30/17 23:59 Room Air 12/30/17 23:57 37.0 92 18 137/78 (97) 96 Room Air Notes Mental Status: alert / awake / arousable, participated in evaluation Pt Amnestic to Procedure: Yes Nausea / Vomiting: adequately controlled Pain: adequately controlled Airway Patency, RR, SpO2: stable & adequate BP & HR: stable & adequate Hydration State: stable & adequate Anesthetic Complications: no major complications apparent
[2017-12-31 11:43] VITALS: BP 149/73; PULSE 92; TEMP 37.6; O2SAT 95
[2017-12-31] MEDS ORDERED: ONDANSETRON INJ 2 MG/ML 2 ML VIAL IV PRN (12:00)
[2017-12-31] MEDS ORDERED: NAPROXEN 250 MG TAB PO ONE (12:15)
--- NOTE | 2017-12-31 13:58 | Gastrointestinal Consultation ---
Gastrointestinal Consultation Date of Consultation: Dec 31, 2017 Attending Physician: Lakisha Consulting Physician: Marc Reason for Consultation: elevated LFTs History of Present Illness Patient is a 62 year old male w/ history listed below who presented to [facility] ED following 8 days of fever, chills, nightsweats, malaise and rigors CT abdomen/ pelvis w/ diffuse lymphadenopathy. Was evaluated by thoracic medicine for mediastinal adenopathy s/p mediastinoscopy w/preliminary reports of lymphoma. GI was asked to evaluate the pt for elevated LFTs. Pt was seen and evaluated, chart reviewed. Family is at bedside. Pt notes he has never been told he has had elevated LFTs before. Reviewing his OP records in [facility], his LFTs have been fairly normal when checked. He denies any new medications, supplements. Was taking tylenol 2 tablets every day for his fever, chills. Never any more than that. No ETOH. Denies abd pain, nausea, vomiting. No pruritus. No jaundice. Denies alfredo colored stools, dark urine. He has had looser stills since his admission. Suggests 1-2 BMs daily. Semi-formed. No black or bloody stools. Today , he feels better. Has had resolution of fever, chills, malaise. But is still fatigued. Is not sleeping well here. ETOH: rare Tylenol: 2 tablets daily x 1 week Supplements: none Medications: none C.diff 12/30/17: negative Stool culture 12/30/17: pending CT ABD/Pelvis 12/31/17: There is upper abdominal, mesenteric, retroperitoneal, pelvic sidewall, andinguinal lymphadenopathy consistent with the reported clinical history oflymphoma. Mediastinal and hilar adenopathy is partially visualized. Splenomegaly.. Trace pleural effusions. There is a small volume of free fluid in the paracolic gutters bilaterally.There is a 7 mm pleural-based nodule in the left lower lobe. Additional findings as above. Neck CT 12/31/17: Cervical, axillary, and upper mediastinal lymphadenopathy as described above.This is highly suspicious for a lymphoma. Interval development of soft tissue gas within the neck and extending intothe mediastinum consistent with pneumomediastinum. This is new from the 12/29/[address] Correlate for interval procedures to account for the soft tissue gas. Chest XR 12/31/17: Scattered atelectasis. No significant postprocedural pneumothorax Chest CT 12/29/17: Multifocal bulky adenopathy of the thorax as above, notably involving the mediastinum, tacos and bilateral subpectoral and axillary chains with partially imaged bulky adenopathy also present within the upper abdomen. Differential considerations would include lymphoproliferative disorder or metastatic disease from unknown primary. Pleural thickening and nodularity of the bilateral major fissures is suspicious for lymphangitic spread of disease with infectious or inflammatory etiology also within the differential. A few scattered solid nodules of the lungs bilaterally measure up to 6 mm. Follow-up will be needed to further characterize. Splenomegaly. Chest XR 12/29/17: No evidence of focal pulmonary consolidation Soft tissue fullness of the right paratracheal region. Adenopathy cannot be excluded. EGD: none Colonoscopy 10/20/10: The entire examined colon is normal. Past Medical/Surgical History Medical Problems: (1) Chest mass Status: Acute (2) Chills Status: Acute (3) Fever Status: Acute Past Medical History: SVT, HTN, GERD, dyslipidemia Past Surgical History: colonoscopy Family History Colon cancer GRANDFATHER Heart disease FATHER Kidney disease MOTHER Prostate cancer FATHER Social History Smoking Status: Former Smoker Alcohol Use: none Drug Use: none Marital Status: Housing Status: lives with family Allergies Coded Allergies: No Known Allergies (Unverified , 12/29/17) Current Medications Home Meds and Scripts Medications Dose Route/Sig Max Daily Dose Days Date Category Alprazolam 0.25 Mg Tab 0.25 Mg PO BID 12/29/17 Reported Nexium (Esomeprazole Magnesium) 40 Mg Capcr 40 Mg PO DAILY 12/29/17 Reported Aspirin Ec (Aspirin) 81 Mg Tab 81 Mg PO DAILY 12/29/17 Reported Lipitor (Atorvastatin) 40 Mg Tab 40 Mg PO DAILY 12/29/17 Reported Atenolol 50 Mg Tab 50 Mg PO DAILY 12/29/17 Reported Review of Systems Constitutional: + sweats, + fatigue, No fever, No chills, No weight loss, No weakness Respiratory: No cough, No wheezing, No shortness of breath, No dyspnea at rest , No hemoptysis Cardiac: No chest pain, No edema, No palpitations Abdomen: + diarrhea, No pain, No nausea, No vomiting, No constipation, No GI bleeding, No dysphagia, No odynophagia, No acolic stools, No jaundice, No dark urine Skin: No rash, No itch, No color change, No bleeding, No jaundice Physical Exam Date Time Temp Pulse Resp B/P (MAP) Pulse Ox O2 Delivery O2 Flow Rate FiO2 12/31/17 12:00 Room Air 12/31/17 11:43 37.6 92 18 149/73 (98) 95 Room Air 12/31/17 08:00 Room Air 12/31/17 07:54 37.0 95 16 138/71 (93) 96 Room Air 12/31/17 04:00 Room Air 12/31/17 03:42 36.7 90 18 139/75 (96) 96 12/30/17 23:59 Room Air 12/30/17 23:57 37.0 92 18 137/78 (97) 96 Room Air 12/30/17 20:00 Room Air 12/30/17 18:55 36.7 86 16 133/71 (91) 96 Room Air 12/30/17 16:11 92 14 98 Nasal Cannula 2.0 12/30/17 16:00 Nasal Cannula 2.0 12/30/17 15:41 92 9 123/73 (90) 2 12/30/17 15:11 93 15 Nasal Cannula 3.0 12/30/17 15:10 37.5 94 20 127/73 (91) 97 Nasal Cannula 3.0 12/30/17 14:15 93 18 143/74 96 Nasal Cannula 3 12/30/17 14:05 93 18 149/73 97 Oxymask 7 12/30/17 13:55 96 18 148/77 97 Oxymask 7 General Appearance: no apparent distress (pt is sitting upright in bed, family at bedside) Eyes: PERRL ENT: hearing grossly normal Neck: supple, trachea midline Respiratory/Chest: lungs clear, normal breath sounds, no respiratory distress, no accessory muscle use Cardiovascular: regular rate, rhythm, no gallop, no JVD, + systolic murmur Abdomen: normal bowel sounds, non tender, soft, no organomegaly, no pulsatile mass Neurologic/Psych: alert, normal mood/affect, oriented x 3 Skin: normal color, warm/dry, no rash Laboratory Results Last 24 Hours Test 12/30/17 19:53 12/31/17 04:45 12/31/17 08:39 Uric Acid 5.7 mg/dl 5.0 mg/dl Lactate Dehydrogenase 606 U/L 587 U/L White Blood Count 12.56 K/uL Red Blood Count 4.44 M/uL Hemoglobin 12.2 g/dL Hematocrit 35.9 % Mean Corpuscular Volume 80.9 fL Mean Corpuscular Hemoglobin 27.5 pg Mean Corpuscular Hemoglobin Concent 34.0 g/dl Platelet Count 197 K/uL Mean Platelet Volume 10.1 fL Neutrophils (%) (Auto) 82.4 % Lymphocytes (%) (Auto) 9.2 % Monocytes (%) (Auto) 7.6 % Eosinophils (%) (Auto) 0.0 % Basophils (%) (Auto) 0.2 % Neutrophils # (Auto) 10.36 K/uL Lymphocytes # (Auto) 1.15 K/uL Monocytes # (Auto) 0.95 K/uL Eosinophils # (Auto) 0.00 K/uL Basophils # (Auto) 0.02 K/uL RDW Standard Deviation 42.7 fL RDW Coefficient of Variation 14.5 % Immature Granulocyte % (Auto) 0.6 % Immature Granulocyte # (Auto) 0.08 K/uL Phosphorus Level 2.4 mg/dl Sodium Level 139 mmol/L Potassium Level 3.8 mmol/L Chloride Level 108 mmol/L Carbon Dioxide Level 26 mmol/L Anion Gap 5.0 mmol/L Blood Urea Nitrogen 11 mg/dl Creatinine 0.99 mg/dl Est Creatinine Clear Calc Drug Dose 82.0 ml/min Estimated GFR () 93.6 Estimated GFR (Non- 80.7 BUN/Creatinine Ratio 11.5 Random Glucose 141 mg/dl Calcium Level 7.9 mg/dl Total Bilirubin 0.3 mg/dl Direct Bilirubin < 0.1 mg/dl Aspartate Amino Transf (AST/SGOT) 41 U/L Alanine Aminotransferase (ALT/SGPT) 79 U/L Alkaline Phosphatase 151 U/L Total Protein 6.6 gm/dl Albumin 2.2 gm/dl Impression Patient is a 62 year old male w/ fatigue, fevers, chills, nightsweats, malaise x 8 days w/ CT evidence of mediastinal adenopathy s/p mediastinoscopy w/ preliminary reports of lymphoma. Pathology pending. GI was asked to evaluate the pt for his elevated LFTs which are improving during the course of this admission. His OP LFTs in August were WNL TB 0.3, DB 0.1, AST 41, ALT 79, ALKP 151 w/o evidence of cirrhosis on imaging w / normal coagulation studies and plts. Plan - OP serological evaluation of LFT if LFTS remain elevated - Follow LFTs - OP Fibroscan - Less than 2G of Tylenol daily - Pt has asked us to contact his daughter Nadira, who is a physician at [facility] - Please call with any acute changes, questions or concerns
[2017-12-31] MEDS ORDERED: NURSING VERBAL MED ORDER ONE (15:15)
[2017-12-31 16:43] VITALS: BP 128/67; PULSE 86; TEMP 36.7; O2SAT 96
--- NOTE | 2017-12-31 18:05 | ECHOCARDIOGRAM REPORT ---
*NOTICE TO RECEIVING [employer] This information is strictly Confidential and protected under [place] law. [place] law prohibits you from making any further disclosure of this information unless further disclosure is expressly permitted by the written consent of the person to whom it pertains or is authorized by law. A general authorization for the release of medical or other information is not sufficient for this purpose. Hospital accepts no responsibility if the information is made available to any other person, INCLUDING THE PATIENT. Interpretation Summary * Name: KANA SEBASTIAN Study Date: 12/31/2017 03:05 PM BP: 149/73 mmHg * Patient Location: .2E\S\E204\S\1 HR: 86 * : 1955 (M/d/yyyy) Gender: Male Height: 68 in * Age: 62 yrs Ethnicity: CA Weight: 192 lb * Ordering Physician: Román Banuelos * Referring Physician: Self, Referred * Performed By: Lauren Sharma RCS * * Reason For Study: Lymphoma, Tachycardia * BSA: 2.0 m2 * -- Conclusions -- * There is no pericardial effusion. * The left ventricle is normal in size. * Left ventricular systolic function is normal. * Ejection Fraction = 60-65%. * The right ventricular systolic function is normal. * The left atrial size is normal. * Right atrial size is normal. Procedure Details * A complete two-dimensional transthoracic echocardiogram was performed (2D, M-mode, Doppler and color flow Doppler). Left Ventricle * The left ventricle is normal in size. * There is normal left ventricular wall thickness. * Left ventricular systolic function is normal. * Ejection Fraction = 60-65%. * The left ventricular wall motion is normal at rest. Right Ventricle * The right ventricle is normal size. * The right ventricular systolic function is normal. Atria * The left atrial size is normal. * Right atrial size is normal. * The interatrial septum is intact with no evidence for an atrial septal defect. Mitral Valve * The mitral valve anatomy is normal. * Significant mitral regurgitation is absent. Tricuspid Valve * The tricuspid valve anatomy is normal. * Significant tricuspid regurgitation is absent. Aortic Valve * The aortic valve is tricuspid. The leaflet thickness if normal. There is no aortic stenosis, and no significant insufficiency. * The aortic valve opens well. * There is no significant aortic regurgitation. Pulmonic Valve * The pulmonic valve is not well visualized. * There is no significant pulmonary regurgitation. Great Vessels * The aortic root and proximal ascending aorta are normal sized. Pericardium/Pleural * There is no pericardial effusion. MMode 2D Measurements and Calculations IVSd 0.93 cm IVSs 1.3 cm LVIDd 4.6 cm LVIDs 3.0 cm LVPWd 0.95 cm LVPWs 1.5 cm IVS/LVPW 0.98 FS 33.9 % EDV(Teich) 95.9 ml ESV(Teich) 35.7 ml EF(Teich) 62.8 % EDV(cubed) 95.5 ml ESV(cubed) 27.6 ml EF(cubed) 71.1 % % IVS thick 34.8 % % LVPW thick 60.3 % LV mass(C)d 144.3 grams LV mass(C)dI 71.8 grams/m\S\2 LV mass(C)s 139.7 grams LV mass(C)sI 69.6 grams/m\S\2 SV(Teich) 60.2 ml SI(Teich) 30.0 ml/m\S\2 SV(cubed) 67.9 ml SI(cubed) 33.8 ml/m\S\2 Ao root diam 3.7 cm Ao root area 10.5 cm\S\2 ACS 1.4 cm LA dimension 3.9 cm asc Aorta Diam 3.7 cm LA/Ao 1.1 EDV(MOD-sp4) 166.0 ml ESV(MOD-sp4) 73.0 ml EF(MOD-sp4) 56.0 % EDV(MOD-sp2) 119.0 ml ESV(MOD-sp2) 45.0 ml EF(MOD-sp2) 62.2 % SV(MOD-sp4) 93.0 ml SI(MOD-sp4) 46.3 ml/m\S\2 SV(MOD-sp2) 74.0 ml SI(MOD-sp2) 36.8 ml/m\S\2 Doppler Measurements and Calculations MV E max albina 80.0 cm/sec MV A max albina 54.0 cm/sec MV E/A 1.5 MV P1/2t max albina 88.0 cm/sec MV P1/2t 33.0 msec MVA(P1/2t) 6.7 cm\S\2 MV dec slope 780.4 cm/sec\S\2 MV dec time 0.13 sec Ao V2 max 134.6 cm/sec Ao max PG 7.2 mmHg Ao max PG (full) 3.8 mmHg LV V1 max PG 3.5 mmHg LV V1 max 93.4 cm/sec PA V2 max 91.9 cm/sec PA max PG 3.4 mmHg
[2017-12-31 18:58] VITALS: BP 128/72; PULSE 82; TEMP 36.6; O2SAT 96
[2017-12-31] MEDS ORDERED: NAPROXEN 250 MG TAB PO SCH (21:00)
[2017-12-31] MEDS: ALPRAZOLAM 0.25 MG TAB PO SCH (21:00)
--- NOTE | 2017-12-31 21:47 | Hematology/Oncology Prog Note ---
Hematology/Onc Progress Note Date of Service Dec 31, 2017. Subjective S: Patient feels ok today. Had a low grade temp this morning He states swollen glands no longer feel tender No cough or shortness of breath no abdominal pain I spoke to his daughter Dr Akhtar - she said patient he was a little confused this morning but she think that patient also did not sleep much Patient states he did not sleep much. He states that he understands now that the blood cultures are pending and that we would also want to rule out infection since he has been having fevers, while waiting for the pathology that is still pending. He states that he notice he is not getting the night sweats now since he is admitted At home he was having drenching sweats He denies any headache or paresthesias or confusion. Blood cultures are still pending Review of Systems: Constitutional: + fever, + fatigue, No chills Respiratory: No cough, No sputum, No shortness of breath, No dyspnea on exertion Cardiovascular: No chest pain Abdomen: No pain, No nausea, No vomiting Vital Signs Vital Signs Past 12 Hours Date Time Temp Pulse Resp B/P (MAP) Pulse Ox O2 Delivery O2 Flow Rate FiO2 12/31/17 18:58 36.6 82 20 128/72 (90) 96 Room Air 12/31/17 16:43 36.7 86 18 128/67 (87) 96 Room Air 12/31/17 16:00 Room Air 12/31/17 12:00 Room Air 12/31/17 11:43 37.6 92 18 149/73 (98) 95 Room Air Physical Exam Head: normocephalic, atraumatic Neck: pertinent finding (palpable adenopathy bilaterally, nontender, unchanged) Lungs: Auscuitation: breath sounds normal, no wheezing, no rales/crackles, no rhonchi Cardiovascular: Heart Auscultation: RRR, normal S1, normal S2 Abdomen: Inspection & Palpation: soft, non-distended, no tenderness, guarding & rebound Extremities: no edema alert and oriented x 3, grossly nonfocal Laboratory Results Past 24 Hours Test 12/31/17 04:45 12/31/17 08:39 Range/Units White Blood Count 12.56 4.8-10.8 K/uL Red Blood Count 4.44 4.7-6.1 M/uL Hemoglobin 12.2 14.0-18.0 g/dL Hematocrit 35.9 42-52 % Mean Corpuscular Volume 80.9 80-100 fL Mean Corpuscular Hemoglobin 27.5 25-34 pg Mean Corpuscular Hemoglobin Concent 34.0 32-36 g/dl Platelet Count 197 130-400 K/uL Mean Platelet Volume 10.1 7.4-10.4 fL Neutrophils (%) (Auto) 82.4 % Lymphocytes (%) (Auto) 9.2 % Monocytes (%) (Auto) 7.6 % Eosinophils (%) (Auto) 0.0 % Basophils (%) (Auto) 0.2 % Neutrophils # (Auto) 10.36 1.4-6.5 K/uL Lymphocytes # (Auto) 1.15 1.2-3.4 K/uL Monocytes # (Auto) 0.95 0.11-0.59 K/uL Eosinophils # (Auto) 0.00 0-0.5 K/uL Basophils # (Auto) 0.02 0-0.2 K/uL RDW Standard Deviation 42.7 36.4-46.3 fL RDW Coefficient of Variation 14.5 11.5-14.5 % Immature Granulocyte % (Auto) 0.6 % Immature Granulocyte # (Auto) 0.08 0.00-0.02 K/uL Uric Acid 5.0 2.6-7.2 mg/dl Phosphorus Level 2.4 2.5-4.9 mg/dl Lactate Dehydrogenase 587 87-241 U/L Sodium Level 139 136-145 mmol/L Potassium Level 3.8 3.5-5.1 mmol/L Chloride Level 108 98-107 mmol/L Carbon Dioxide Level 26 21-32 mmol/L Anion Gap 5.0 3-11 mmol/L Blood Urea Nitrogen 11 7-18 mg/dl Creatinine 0.99 0.60-1.40 mg/dl Est Creatinine Clear Calc Drug Dose 82.0 ml/min Estimated GFR () 93.6 Estimated GFR (Non- 80.7 BUN/Creatinine Ratio 11.5 10-20 Random Glucose 141 70-99 mg/dl Calcium Level 7.9 8.5-10.1 mg/dl Total Bilirubin 0.3 0.2-1 mg/dl Direct Bilirubin < 0.1 0-0.2 mg/dl Aspartate Amino Transf (AST/SGOT) 41 15-37 U/L Alanine Aminotransferase (ALT/SGPT) 79 12-78 U/L Alkaline Phosphatase 151 45-117 U/L Total Protein 6.6 6.4-8.2 gm/dl Albumin 2.2 3.4-5.0 gm/dl Pathology Pathology is pending. I spoke to pathologist Dr Posada and he said that he is aware of this case and that at this time pathology result is still pending He states that by frozen section it was believed to be lymphoma but there is no characterization as to what type of lymphoma or whether B cell or T cell and that they are doing additional testing on the specimen. I asked if they had enough tissue to make a histologic diagnosis and informed him of the findings on the patient's CT scan of the neck chest abdomen/pelvis. He said they have enough tissue to do the testing and additional testing has been sent A final diagnosis is not available at this time since additional testing is being sent. CT abdomen/pelvis "Lymphadenopathy: There are enlarged upper abdominal nodes. Gastrohepatic and portacaval nodes on image #140 measure 4.4 x 2.9 cm in aggregate dimension. There are numerous mildly enlarged mesenteric lymph nodes. A kodak mass in the right lower quadrant on image #269 measures 5.2 x 3.5 cm in aggregate dimension. There are numerous mildly enlarged retroperitoneal and iliac chain lymph nodes. An aortocaval node on image #243 measures 2.0 x 1.4 cm. A left iliac chain node on image #357 measures 1.7 x 1.7 cm. There is bilateral pelvic sidewall adenopathy. The largest node is on the left seen on image #409 and measures 3.3 x 2.0 cm. There is bilateral inguinal lymphadenopathy. A left inguinal node on image #435 and measures 3.0 x 1.8 cm." Impression 1. There is upper abdominal, mesenteric, retroperitoneal, pelvic sidewall, and inguinal lymphadenopathy consistent with the reported clinical history of lymphoma. 2. Mediastinal and hilar adenopathy is partially visualized. 3. Splenomegaly. 4. Trace pleural effusions. 5. There is a small volume of free fluid in the paracolic gutters bilaterally. 6. There is a 7 mm pleural-based nodule in the left lower lobe. 8. Additional findings as above." CT neck 1. Cervical, axillary, and upper mediastinal lymphadenopathy as described above. This is highly suspicious for a lymphoma. 2. Interval development of soft tissue gas within the neck and extending into the mediastinum consistent with pneumomediastinum. This is new from the 12/29/[address] Correlate for interval procedures to account for the soft tissue gas. Assessment & Plan 62 year old male admitted with fever and rigors malaise night sweats and extensive lymphadenopathy in the neck, chest and abdomen and splenomegaly, findings highly suspicious for lymphoma on his imaging. LDH is elevated but uric acid normal. He underwent video mediastinoscopy with biopsy yesterday. Pathology is still pending at this time. I spoke to patient and his . Cultures are still pending Recommend rule out infection in the mean time recommend check MRI brain I discussed with Dr Lin at [facility] regarding this patient - he said he would also need a histologic diagnosis from the biopsy to be available before accepting this patient since that would direct his treatment. He recommended that in the mean time infection should be ruled out and that if patient is having fevers panculture and agreed with check MRI brain and HIV testing as part of the workup in the mean time while pathology results is still pending and that if result becomes available over the weekend or on Wednesday, call him back. I gave Dr Posada my number to call me back if he gets the results of additional testing and if histologic diagnosis becomes available over the weekend. Recommend consult with neurology for additional evaluation if MRI brain is abnormal or if any confusion or if continues to have fever. I spoke to Dr Christian regarding the above. Also recommended to Dr Banuelos to discontinue naproxen until infection has been ruled out. His blood cultures are still pending. If he is still having fevers and sweats would recommend remain in hospital and transfer to tertiary center for further evaluation and management once infection has been ruled out. Patient and his verbalized understanding of the above.
--- NOTE | 2017-12-31 22:13 | DIAGNOSTIC IMAGING REPORT ---
ORBIT RADIOGRAPHS 3 VIEWS HISTORY: pre-MRI screening. COMPARISON: None. FINDINGS: There are no radiopaque foreign bodies identified within the orbits. IMPRESSION: No radiopaque foreign bodies identified within the orbits. Electronically signed by: Paul Carrasco M.D. 12/31/2017 10:12 PM Dictated Date/Time: 12/31/2017 10:10 PM
--- NOTE | 2017-12-31 22:52 | DIAGNOSTIC IMAGING REPORT ---
MRI OF THE BRAIN WITHOUT AND WITH IV CONTRAST CLINICAL HISTORY: Lymphoma. Evaluate for RECEPTION INTERVIEWER involvement COMPARISON STUDY: No previous studies for comparison. TECHNIQUE: MRI of the brain was performed from the vertex to the skull base utilizing various T1 and T2 weighted sequences. Following the IV administration of mL of Gadavist contrast, additional enhanced images were obtained. FINDINGS: Sagittal T1, axial diffusion, proton density and T2 weighted axial, coronal FLAIR, and pre and post axial T1-weighted images were acquired. These were supplemented with post gadolinium coronal T1 weighted images. No intra or extra-axial mass lesions are visualized. Axial diffusion-weighted images reveal no evidence of acute or subacute infarction. There is no evidence of ventricular dilatation. Proton density T2-weighted and FLAIR images reveal minimal foci of increased T2 signal within the white matter, likely on a small vessel basis. There are no abnormal flow voids. There is no evidence of pathologic enhancement. There is cervical lymphadenopathy. IMPRESSION: 1. No acute intracranial findings. No evidence of RECEPTION INTERVIEWER lymphoma 2. Cervical lymphadenopathy Electronically signed by: Paul Carrasco M.D. 12/31/2017 10:51 PM Dictated Date/Time: 12/31/2017 10:47 PM
[2018-01-01] VITALS: BP 136/71; PULSE 97; TEMP 37; O2SAT 96
[2018-01-01 04:00] VITALS: BP 143/74; PULSE 91; TEMP 37.1; O2SAT 95
[2018-01-01 05:26] LABS: BASO % 0.3 %; BASO ABS # 0.03 K/uL (0-0.2); EOS ABS # 0.26 K/uL (0-0.5); HEMATOCRIT 34.1 % (42-52); HEMOGLOBIN 11.6 g/dL (14.0-18.0); IG# 0.03 K/uL (0.00-0.02); LYMPH % 11.6 %; LYMPH ABS # 1.02 K/uL (1.2-3.4); MEAN CELL VOLUME 81.6 fL (80-100); MEAN CORPUSCULAR HEMOGLOBIN 27.8 pg (25-34); MONO % 8.1 %; MONO ABS # 0.71 K/uL (0.11-0.59); NEUT % 76.7 %; NEUT ABS # 6.73 K/uL (1.4-6.5); PLATELET COUNT 172 K/uL (130-400); RED CELL DISTRIBUTION WIDTH CV 14.9 % (11.5-14.5); RED CELL DISTRIBUTION WIDTH SD 43.7 fL (36.4-46.3); WHITE BLOOD COUNT 8.78 K/uL (4.8-10.8)
[2018-01-01 05:51] LABS: CALCIUM 7.9 mg/dl (8.5-10.1); CREATININE 0.96 mg/dl (0.60-1.40); POTASSIUM 3.7 mmol/L (3.5-5.1)
[2018-01-01 07:36] VITALS: BP 155/75; PULSE 94; TEMP 37.1; O2SAT 97
[2018-01-01] MEDS: PANTOprazole SOD 40 MG TAB PO SCH (09:10)
[2018-01-01] MEDS: SODIUM CHLORIDE 0.9% 1000ML 1,000 ML IV SCH (09:10)
[2018-01-01] MEDS: POT PHOSPHATE MONOBASIC W/ SOD TAB PO SCH ×2 (09:10→13:39)
[2018-01-01] MEDS: ALPRAZOLAM 0.25 MG TAB PO SCH (09:10)
[2018-01-01 09:27] LABS: ALBUMIN 2.3 gm/dl (3.4-5.0); PHOSPHORUS 3.9 mg/dl (2.5-4.9); TOTAL PROTEIN 6.5 gm/dl (6.4-8.2)
--- NOTE | 2018-01-01 10:27 | Surgery Progress Note ---
Subjective Date of Service: Jan 01, 2018. Pt. denies pain at surgical site. No SOB or dysphagia. Objective Vitals Date Time Temp Pulse Resp B/P (MAP) Pulse Ox O2 Delivery O2 Flow Rate FiO2 01/01/18 07:36 37.1 94 18 155/75 (101) 97 Room Air 01/01/18 04:00 Room Air 01/01/18 04:00 37.1 91 16 143/74 (97) 95 Room Air 01/01/18 00:00 Room Air 01/01/18 00:00 37.0 97 18 136/71 (92) 96 Room Air 12/31/17 20:00 Room Air 12/31/17 18:58 36.6 82 20 128/72 (90) 96 Room Air 12/31/17 16:43 36.7 86 18 128/67 (87) 96 Room Air 12/31/17 16:00 Room Air 12/31/17 12:00 Room Air 12/31/17 11:43 37.6 92 18 149/73 (98) 95 Room Air Physical Exam General: + well developed, + well nourished, No distress Neck: + supple, + pertinent finding (dressing is C/D/I-- no notable swelling) Assessment & Plan 62 year old male with mediastinal adenopathy -mediastinoscopy performed on 12/30/17: -preliminary path showed probable lymphoma -heme/onc consulted: -currently awaiting final path/completing staging work-up with treatment plan to be based on path results and stating OTHER -pt. may remove dressing in 2 days and shower thereafter, but not tub baths -we will call pt. for f/u appt. approx 1 week following d/c
[2018-01-01 11:23] VITALS: BP 148/75; PULSE 87; TEMP 37; O2SAT 97
--- NOTE | 2018-01-01 12:07 | Progress Note ---
Medicine Progress Note Date & Time of Visit: Jan 01, 2018 at 11:51. Subjective seen sitting up in chair comfortable in good spirits states he feels much improved denies chills, headache, cough, shortness of breath, chest pain, abdominal pain no changes with urination or BM no other symptoms states he is ready and would like to be discharged today Objective Last 8 Hrs Date Time Temp Pulse Resp B/P (MAP) Pulse Ox O2 Delivery O2 Flow Rate FiO2 01/01/18 11:23 37.0 87 18 148/75 (99) 97 Room Air 01/01/18 07:36 37.1 94 18 155/75 (101) 97 Room Air 01/01/18 04:00 Room Air 01/01/18 04:00 37.1 91 16 143/74 (97) 95 Room Air Physical Exam: General- oriented x3, not in distress, speaks in sentences with no effort Eyes- anicteric Neck- dressing in place, mid-anterior part of the neck- wound closely opposed, no bleeding/discharge/erythema/swelling Lungs- clear breath sounds bilaterally, no rales/wheezes Heart- regular rhythm; no murmur, normal rate Abdomen- normal bowel sounds, soft, nontender Extremities- no pretibial edema, no calf tenderness Neuro- alert, oriented x 3; no gross focal deficits Skin- warm & dry Laboratory Results: Last 24 Hours Test 01/01/18 05:11 01/01/18 08:11 White Blood Count 8.78 K/uL Red Blood Count 4.18 M/uL Hemoglobin 11.6 g/dL Hematocrit 34.1 % Mean Corpuscular Volume 81.6 fL Mean Corpuscular Hemoglobin 27.8 pg Mean Corpuscular Hemoglobin Concent 34.0 g/dl Platelet Count 172 K/uL Mean Platelet Volume 9.0 fL Neutrophils (%) (Auto) 76.7 % Lymphocytes (%) (Auto) 11.6 % Monocytes (%) (Auto) 8.1 % Eosinophils (%) (Auto) 3.0 % Basophils (%) (Auto) 0.3 % Neutrophils # (Auto) 6.73 K/uL Lymphocytes # (Auto) 1.02 K/uL Monocytes # (Auto) 0.71 K/uL Eosinophils # (Auto) 0.26 K/uL Basophils # (Auto) 0.03 K/uL RDW Standard Deviation 43.7 fL RDW Coefficient of Variation 14.9 % Immature Granulocyte % (Auto) 0.3 % Immature Granulocyte # (Auto) 0.03 K/uL Sodium Level 139 mmol/L Potassium Level 3.7 mmol/L Chloride Level 108 mmol/L Carbon Dioxide Level 25 mmol/L Anion Gap 6.0 mmol/L Blood Urea Nitrogen 13 mg/dl Creatinine 0.96 mg/dl Est Creatinine Clear Calc Drug Dose 84.5 ml/min Estimated GFR () 97.1 Estimated GFR (Non- 83.8 BUN/Creatinine Ratio 13.2 Random Glucose 108 mg/dl Calcium Level 7.9 mg/dl HIV (1&2) Ab and P24 Ag, 4th Gener NEG Phosphorus Level 3.9 mg/dl Total Bilirubin 0.4 mg/dl Direct Bilirubin 0.1 mg/dl Aspartate Amino Transf (AST/SGOT) 31 U/L Alanine Aminotransferase (ALT/SGPT) 66 U/L Alkaline Phosphatase 135 U/L Total Protein 6.5 gm/dl Albumin 2.3 gm/dl Assessment & Plan FEBRILE ILLNESS / ADENOPATHY 12/30/17 s/p Mediastinoscopy Frozen Section: possible Lymphoma Dr. Rodriguez consulted CT abdomen/pelvis: diffuse lymphadenopathy Echo: EF 60-65% ff up official Pathology discussed with Dr. Rodriguez- ok for discharge patient would need ff up with Oncologist Dr. Alamo/Dr. Rodriguez next week ID consulted Serologies pending for Bartonella, etc. on empiric Doxycycline 100mg IV, continue Doxy 100mg BID PO x 7 days will discuss with Dr. Bobo advised patient and family to monitor for return of symptoms, fever, etc. and return to ER immediately if with recurrence of symptoms ELEVATED TRANSAMINASES AND ALKALINE PHOSPHATASE improved GI consulted, from excess Tylenol? recommend outpatient Fibroscan PALPITATIONS History of paroxysmal SVT. Pulse rate as high as 150 at home. Continue atenolol. resolved HYPERTENSION Continue atenolol. GERD Continue PPI. VTE PROPHYLAXIS SCDs RESUSCITATION STATUS Full code. DISPOSITION d/c home today patient would need ff up with Oncologist Dr. Alamo/Dr. Rodriguez next week ff up with PCP in 1 week Current Inpatient Medications: Current Inpatient Medications Medications (Trade) Dose Ordered Sig/Selena Route Start Time Stop Time Status Last Admin Dose Admin Ioversol (Optiray 320) 111 ml UD PRN IV 12/29/17 10:45 01/02/18 10:44 Miscellaneous (Iv Fluids Completed) 1 ea PRN PRN N/A 12/29/17 14:15 12/29/18 14:14 Atenolol (Tenormin Tab) 50 mg DAILY PO 12/30/17 09:00 01/29/18 08:59 01/01/18 09:11 50 MG Pantoprazole Sodium (Protonix Tab) 40 mg QAM PO 12/30/17 09:00 01/29/18 08:59 01/01/18 09:10 40 MG Acetaminophen (Tylenol Tab) 650 mg Q6H PRN PO 12/29/17 21:45 01/28/18 13:59 12/31/17 12:10 650 MG Acetaminophen 650 mg/Empty Bag 65 ml @ 260 mls/hr Q6H PRN IV 12/30/17 10:45 01/29/18 10:44 Oxycodone HCl (Roxicodone Immediate Rel Tab) 5 mg Q6H PRN PO 12/30/17 13:30 01/13/18 13:29 Morphine Sulfate (MoRPHine SULFATE INJ) 2 mg Q3H PRN IV 12/30/17 13:30 01/13/18 13:29 Ioversol (Optiray 320) 100 ml UD PRN IV 12/30/17 21:15 01/03/18 21:14 Lorazepam (Ativan Inj) 0.5 mg Q4H PRN IV 12/31/17 08:45 01/30/18 08:44 12/31/17 21:43 0.5 MG Alprazolam (Xanax Tab) 0.5 mg BID PO 12/31/17 21:00 01/28/18 20:59 01/01/18 09:10 0.5 MG Potassium/ Phosphorus/Sodium (Phospha 250 Neutral 155-852-130 Mg) 1 tab QID PO 12/31/17 09:00 01/30/18 08:59 01/01/18 09:10 1 TAB Sodium Chloride 1,000 ml @ 75 mls/hr [id number] IV 12/31/17 09:00 01/30/18 08:59 01/01/18 09:10 75 MLS/HR Ondansetron HCl (Zofran Inj) 4 mg Q6H PRN IV 12/31/17 12:00 01/30/18 11:59
[2018-01-01] MEDS ORDERED: DXY100 PO (12:09)
--- NOTE | 2018-01-01 12:16 | Discharge Instructions ---
Discharge Instructions Date of Service Jan 01, 2018. Admission Reason for Admission: Flu & Swollen Glands, Excessive Sweating Discharge Discharge Diagnosis / Problem: DIFFUSE LYMPHADENOPATHY, R/O LYMPHOMA Discharge Goals Goal(s): Diagnostic testing, Therapeutic intervention Activity Recommendations Activity Limitations: as noted below (NO HEAVY EXERTION UNTIL RE-EVALUATED BY PRIMARY CARE PHYSICIAN) Lifting Limitations: until after follow-up appointment Exercise/Sports Limitations: until after follow-up appointment Shower/Bathe: keep incision dry (KEEP DRESSING IN PLACE, AFTER 2 DAYS, YOU MAY TAKE IT OFF AND TAKE SHOWERS, NO BATHING ) . Instructions / Follow-Up Instructions / Follow-Up PLEASE REFER TO YOUR NEW MEDICATION LIST AND FOLLOW INSTRUCTIONS CAREFULLY. CALL YOUR PRIMARY CARE PHYSICIAN/ONCOLOGIST OR RETURN TO ER IMMEDIATELY IF WITH RECURRENCE OF SYMPTOMS, FEVER/CHILLS, SWEATS, NAUSEA, LOSS OF APPETITE, WEAKNESS, PAINFUL GLANDS, DIARRHEA. INCREASING PAIN, SWELLING, DISCHARGE/BLEEDING ON THE SURGICAL WOUND SITE. ENSURE ADEQUATE DAILY FLUID INTAKE 7-8 GLASSES OF WATER A DAY. FOLLOW UP WITH THE ONCOLOGIST DR. ORR EARLY NEXT WEEK. FOLLOW UP WITH PRIMARY CARE PROVIDER GENE DAVIDSON ON Wednesday AT 2:35PM. FOLLOW UP WITH THORACIC SURGEON DR. KOTHARI IN 1 WEEK. TEL. NO. Current Hospital Diet Patient's current hospital diet: AHA Diet (Heart Healthy) Discharge Diet Recommended Diet: AHA Diet (Heart Healthy) Procedures Procedures Performed: videomediastinoscopy with biopsy Pending Studies Studies pending at discharge: yes List of pending studies: OFFICIAL PATHOLOGY REPORT OF THE BIOPSY Medical Emergencies . Who to Call and When: Medical Emergencies: If at any time you feel your situation is an emergency, please call 911 immediately. . Non-Emergent Contact Non-Emergency issues call your: Primary Care Provider, Oncologist Call Non-Emergent contact if: you have a fever, your pain is not controlled, your pain is worsening, wound has increased drainage, wound has increased redness, wound has increased pain, you have any medication questions . . "Provider Documentation" section prepared by Román Banuelos. .
--- NOTE | 2018-01-01 12:26 | Discharge Summary ---
Discharge Summary Date of Service Jan 01, 2018. Discharge Summary Admission Date: Dec 31, 2017 at 11:52 Discharge Date: Jan 01, 2018 Discharge Disposition: Home Principal Diagnosis: FEBRILE ILLNESS / DIFFUSE ADENOPATHY RULE OUT LYMPHOMA Secondary Diagnoses/Problems: PLEASE REFER TO HOSPITAL COURSE BELOW. Procedures: videomediastinoscopy with biopsy by Dr. Estrada CHEST CT WITH CONTRAST CT DOSE: 308.89 mGy.cm HISTORY: Acute fever and sore throat. Right paratracheal fullness noted on chest radiographs of same day R paratracheal fullness, fever, sore throat, rigors TECHNIQUE: Multiaxial CT images of the chest were performed following the intravenous administration of contrast. A dose lowering technique was utilized adhering to the principles of ALARA. COMPARISON: Chest radiograph 12/29/2017. FINDINGS: Thyroid is homogeneous. There is multifocal bulky adenopathy about the chest including pathologically enlarged bilateral axillary and subpectoral lymph nodes with index right axillary lymph node measuring up to 2.2 x 1.8 cm on image 103 of series 4. Index pretracheal lymph node measures 2.1 x 1.5 cm on image 64 series 4, enlarged subcarinal lymph node measures 2.8 x 1.8 cm. Bulky adenopathy is seen within the prevascular, pretracheal, paratracheal and AP window distributions as well. Additionally, there is partially imaged bulky adenopathy of the upper abdomen within the region of the gastrohepatic ligament and ke hepatis. Heart is normal in size without pericardial effusion. Coronary arterial disease. Thoracic aorta is normal in both course and caliber. The pulmonary arterial tree appears unremarkable. There is no pneumothorax or pleural effusion. Mild groundglass opacity with subsegmental tree-in-bud nodularity of the left upper lobe. Respiratory motion limits evaluation of the lungs. Thickening with nodularity of the bilateral major fissures is noted. Additionally, scattered noncalcified pulmonary nodules are seen measuring up to 6 mm with the left lower lobe, image 205 series 4. 4 mm nodule of the lingula, image 129 series 4. 3 mm solid nodule of the right upper lobe, image 97 series 4. The liver appears enlarged, however is only partially imaged. Splenomegaly, measuring up to 14.8 cm. Mild bilateral gynecomastia. The bones appear intact. There are no suspicious lytic or blastic bony lesions identified. IMPRESSION: 1. Multifocal bulky adenopathy of the thorax as above, notably involving the mediastinum, tacos and bilateral subpectoral and axillary chains with partially imaged bulky adenopathy also present within the upper abdomen. Differential considerations would include lymphoproliferative disorder or metastatic disease from unknown primary. 2. Pleural thickening and nodularity of the bilateral major fissures is suspicious for lymphangitic spread of disease with infectious or inflammatory etiology also within the differential. A few scattered solid nodules of the lungs bilaterally measure up to 6 mm. Follow-up will be needed to further characterize. 3. Splenomegaly. Electronically signed by: Ke Hills M.D. 12/29/2017 12:[address] neck with intravenous contrast HISTORY: evaluate cervical lymphadenopathy/lymphoma staging TECHNIQUE: Multiaxial CT images of the neck were performed following use of intravenous contrast. COMPARISON STUDY: None. FINDINGS: The visualized brain parenchyma and orbits are unremarkable. No pneumothorax. Small amount of pneumomediastinum. This is also soft tissue gas tracking into the neck. This is new from the 12/29/2017 chest CTA. The parotid and submandibular glands are within normal limits. Prevertebral soft tissues and the epiglottis are normal in thickness. The major cervical vessels enhance normally. Bilateral cervical lymphadenopathy. There is also mild supraclavicular adenopathy. Enlarged bilateral infraclavicular/subpectoral lymph nodes. Dominant left infraclavicular lymph node measures 2.5 x 1.9 cm. Superior mediastinal lymphadenopathy is partially visualized. The thyroid gland enhances normally. Dominant cervical lymph node is seen on the right (level III) measures 2.0 x 1.6 cm. There are also mildly enlarged submandibular and submental lymph nodes. The airway remains patent. No suspicious lytic or blastic osseous lesions. Paranasal sinuses and mastoid air cells are clear. IMPRESSION: 1. Cervical, axillary, and upper mediastinal lymphadenopathy as described above. This is highly suspicious for a lymphoma. 2. Interval development of soft tissue gas within the neck and extending into the mediastinum consistent with pneumomediastinum. This is new from the 12/29/[address] Correlate for interval procedures to account for the soft tissue gas. Electronically signed by: Lico Dickson M.D. 12/31/2017 7:[address] SCAN OF THE ABDOMEN AND PELVIS WITH IV CONTRAST CLINICAL HISTORY: Lymphoma. COMPARISON STUDY: No priors. TECHNIQUE: Following the IV administration of 94 cc of Optiray 320, CT scan of the abdomen and pelvis is performed from the lung bases to the proximal femora. Images are reviewed in the axial, sagittal, and coronal planes. IV contrast was administered without complication. A dose lowering technique was utilized adhering to the principles of ALARA. FINDINGS: Lung bases: The heart is mildly enlarged and without pericardial effusion. There are coronary artery calcifications. There are trace pleural effusions with dependent atelectasis. A 7 mm pleural-based nodule seen at the left lung base on image #76. A tiny hiatal hernia is identified. Hilar adenopathy is partially visualized. The largest hilar node identified measures 1.8 cm in short axis. An enlarged subcarinal node is partially imaged and measures 2.0 cm in short axis. Liver: The contrast-enhanced liver is normal in size, contour, and attenuation. There is no intrahepatic biliary ductal dilatation. The hepatic veins and portal veins are patent. Gallbladder: Contracted. Spleen: The spleen is mildly enlarged, measuring 14.6 cm in length. Pancreas: Unremarkable. Adrenal glands: Unremarkable. Kidneys: The contrast enhanced kidneys are atrophic and without hydronephrosis. The kidneys enhance symmetrically. Small renal cysts measure up to 1.6 cm. Additional subcentimeter cortical hypodensities also likely represent cysts but are too small for definitive characterization. A single nonobstructing calculus is present in each kidney. These measure up to 4 mm. Abdominal vasculature: The abdominal aorta is normal in course and caliber noting moderate to advanced atherosclerotic calcification. Bowel: There is mild sigmoid diverticulosis without CT evidence of acute diverticulitis. No bowel obstruction is seen. The appendix is normal as visualized. Peritoneum: There is a small volume of free fluid in the paracolic gutters. No intraperitoneal free air is seen. Extraperitoneal fluid is also seen in the pelvis. Lymphadenopathy: There are enlarged upper abdominal nodes. Gastrohepatic and portacaval nodes on image #140 measure 4.4 x 2.9 cm in aggregate dimension. There are numerous mildly enlarged mesenteric lymph nodes. A kodak mass in the right lower quadrant on image #269 measures 5.2 x 3.5 cm in aggregate dimension. There are numerous mildly enlarged retroperitoneal and iliac chain lymph nodes. An aortocaval node on image #243 measures 2.0 x 1.4 cm. A left iliac chain node on image #357 measures 1.7 x 1.7 cm. There is bilateral pelvic sidewall adenopathy. The largest node is on the left seen on image #409 and measures 3.3 x 2.0 cm. There is bilateral inguinal lymphadenopathy. A left inguinal node on image #435 and measures 3.0 x 1.8 cm. Pelvic viscera: The bladder, prostate, and seminal vesicles are normal as visualized. Skeletal structures: The skeletal structures are osteopenic. No lytic or blastic lesions are seen. Soft tissues: There is mild body wall edema. IMPRESSION: 1. There is upper abdominal, mesenteric, retroperitoneal, pelvic sidewall, and inguinal lymphadenopathy consistent with the reported clinical history of lymphoma. 2. Mediastinal and hilar adenopathy is partially visualized. 3. Splenomegaly. 4. Trace pleural effusions. 5. There is a small volume of free fluid in the paracolic gutters bilaterally. 6. There is a 7 mm pleural-based nodule in the left lower lobe. 8. Additional findings as above. Electronically signed by: Kong Aparicio M.D. 12/31/2017 7:38 AM MRI OF THE BRAIN WITHOUT AND WITH IV CONTRAST CLINICAL HISTORY: Lymphoma. Evaluate for RADIO INTERFERENCE INVESTIGATOR involvement COMPARISON STUDY: No previous studies for comparison. TECHNIQUE: MRI of the brain was performed from the vertex to the skull base utilizing various T1 and T2 weighted sequences. Following the IV administration of mL of Gadavist contrast, additional enhanced images were obtained. FINDINGS: Sagittal T1, axial diffusion, proton density and T2 weighted axial, coronal FLAIR, and pre and post axial T1-weighted images were acquired. These were supplemented with post gadolinium coronal T1 weighted images. No intra or extra-axial mass lesions are visualized. Axial diffusion-weighted images reveal no evidence of acute or subacute infarction. There is no evidence of ventricular dilatation. Proton density T2-weighted and FLAIR images reveal minimal foci of increased T2 signal within the white matter, likely on a small vessel basis. There are no abnormal flow voids. There is no evidence of pathologic enhancement. There is cervical lymphadenopathy. IMPRESSION: 1. No acute intracranial findings. No evidence of RADIO INTERFERENCE INVESTIGATOR lymphoma 2. Cervical lymphadenopathy Electronically signed by: Paul Carrasco M.D. 12/31/2017 10:51 PM Echo: * -- Conclusions -- * There is no pericardial effusion. * The left ventricle is normal in size. * Left ventricular systolic function is normal. * Ejection Fraction = 60-65%. * The right ventricular systolic function is normal. * The left atrial size is normal. * Right atrial size is normal. Consultations: Oncologist Dr. Rodriguez, Thoracic Surgeon Dr. Estrada, ID Dr. Bobo, GI Dr. Tran Pending Studies/Follow-Up: FOLLOW UP OFFICIAL PATHOLOGY REPORT OF THE LYMPH NODE BIOPSY; REPEAT PARTIAL RENAL PROFILE and LIVER PROFILE ON FOLLOW UP Medication Reconciliation New Medications: Doxycycline Hyclate (Doxycycline Hyclate) 100 Mg Cap 1 CAP PO BID for 7 Days, #14 CAP 0 Refills Continued Medications: Alprazolam (Alprazolam) 0.25 Mg Tab 0.25 MG PO BID, TAB Atenolol (Atenolol) 50 Mg Tab 50 MG PO DAILY Esomeprazole Magnesium (Nexium) 40 Mg Capcr 40 MG PO DAILY Discontinued Medications: Aspirin (Aspirin Ec) 81 Mg Tab 81 MG PO DAILY Atorvastatin (Lipitor) 40 Mg Tab 40 MG PO DAILY Admission Information HPI (per Admitting provider): 62-year-old male from [place] followed by Dr. He. History of hypertension, PSVT, and other problems noted below. Developed malaise, fever, sweats about 8 days ago. 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 Palpitations with heart rate as high as 150. Nonproductive cough. No pharyngitis. No sinus congestion/drainage. Experiencing diffuse myalgias; no arthralgias. No apparent tick bites or rash. Notes tenderness in his anterior neck and groin. No weight loss. Took Tylenol at home with minimal relief of his symptoms. Received ketorolac in ED with improvement of pain. . Physical Exam (per Admitting): CONSTITUTIONAL vital signs as noted above well-developed, well-nourished, no acute distress EYES conjunctivae clear; lids normal pupils equal and reactive to light EARS, NOSE, MOUTH AND THROAT external inspection of ears and nose unremarkable hearing grossly intact to spoken voice oropharynx clear NECK no masses; trachea midline thyroid normal RESPIRATORY normal respiratory effort; no respiratory distress clear to percussion clear to auscultation CARDIOVASCULAR regular rate and rhythm I/ systolic murmur at base no gallop or rub appreciated carotid arteries 2/2 abdominal aorta not palpable pedal pulses intact and symmetric capillary refill toes < 2 seconds no pretibial edema GASTROINTESTINAL normal bowel sounds, soft, nontender; no palpable masses no hepatomegaly or splenomegaly appreciated LYMPHATIC shotty anterior cervical and supraclavicular adenopathy bilateral axillary tenderness; no discrete adenopathy appreciated bilateral inguinal tenderness; no discrete adenopathy appreciated MUSCULOSKELETAL no cyanosis; no digital clubbing no calf tenderness motor strength extremities grossly intact SKIN no rash warm and dry NEUROLOGIC PERRL, EOMI, no facial palsy, no dysarthria, tongue midline patellar DTR's 2/2 PSYCHIATRIC oriented to person, place, time mood and affect appropriate . Hospital Course FEBRILE ILLNESS / DIFFUSE ADENOPATHY RULE OUT LYMPHOMA vs. INFECTION 12/30/17 s/p Mediastinoscopy Frozen Section: possible Lymphoma Pathology Report: pending Oncologist Dr. Rodriguez consulted CT neck/abdomen/pelvis: diffuse lymphadenopathy, splenomegaly Brain MRI: no RADIO INTERFERENCE INVESTIGATOR involvement Echo: EF 60-65% Peripheral Smear: no features on the peripheral smear to suggest peripheral blood involvement by lymphoma or of bone marrow infiltration. ff up official Pathology report discussed with Dr. Rodriguez- ok for discharge patient would need ff up with Oncologist Dr. Alamo/Dr. Rodriguez next week ID consulted Dr. Bobo on empiric Doxycycline 100mg IV CT chest: Mild groundglass opacity with subsegmental tree-in-bud nodularity of the left upper lobe. Serologies pending for infectious work up: Bartonella, etc. Fever resolved, feeling clinically better overall continue Doxy 100mg BID PO x 7 days will discuss with Dr. Bobo re: antibiotic duration advised patient and family to monitor for return of symptoms, fever, etc. and return to ER immediately if with recurrence of symptoms LUNG NODULES seen on CT chest ff up as outpatient ELEVATED TRANSAMINASES AND ALKALINE PHOSPHATASE improved, ast/alt back to normal repeat on ff up next week GI consulted, from excess Tylenol? recommend outpatient Fibroscan PALPITATIONS History of paroxysmal SVT. Pulse rate as high as 150 at home. Continue atenolol. resolved HYPERTENSION Continue atenolol. GERD Continue PPI. DISPOSITION d/c home patient would need ff up with Oncologist Dr. Alamo/Dr. Rodriguez next week ff up with PCP in 1 week Total time spent on discharge = 45 minutes This includes examination of the patient, discharge planning, medication reconciliation, and communication with other providers. Discharge Instructions Discharge Instructions Date of Service Jan 01, 2018. Admission Reason for Admission: Flu & Swollen Glands, Excessive Sweating Discharge Discharge Diagnosis / Problem: DIFFUSE LYMPHADENOPATHY, R/O LYMPHOMA Discharge Goals Goal(s): Diagnostic testing, Therapeutic intervention Activity Recommendations Activity Limitations: as noted below (NO HEAVY EXERTION UNTIL RE-EVALUATED BY PRIMARY CARE PHYSICIAN) Lifting Limitations: until after follow-up appointment Exercise/Sports Limitations: until after follow-up appointment Shower/Bathe: keep incision dry (KEEP DRESSING IN PLACE, AFTER 2 DAYS, YOU MAY TAKE IT OFF AND TAKE SHOWERS, NO BATHING ) . Instructions / Follow-Up Instructions / Follow-Up PLEASE REFER TO YOUR NEW MEDICATION LIST AND FOLLOW INSTRUCTIONS CAREFULLY. CALL YOUR PRIMARY CARE PHYSICIAN/ONCOLOGIST OR RETURN TO ER IMMEDIATELY IF WITH RECURRENCE OF SYMPTOMS, FEVER/CHILLS, SWEATS, NAUSEA, LOSS OF APPETITE, WEAKNESS, PAINFUL GLANDS, DIARRHEA. INCREASING PAIN, SWELLING, DISCHARGE/BLEEDING ON THE SURGICAL WOUND SITE. ENSURE ADEQUATE DAILY FLUID INTAKE 7-8 GLASSES OF WATER A DAY. FOLLOW UP WITH THE ONCOLOGIST DR. ALAMO EARLY NEXT WEEK. FOLLOW UP WITH PRIMARY CARE PROVIDER GENE DAVIDSON ON Wednesday AT 2:35PM. Current Hospital Diet Patient's current hospital diet: AHA Diet (Heart Healthy) Discharge Diet Recommended Diet: AHA Diet (Heart Healthy) Procedures Procedures Performed: videomediastinoscopy with biopsy Pending Studies Studies pending at discharge: yes List of pending studies: OFFICIAL PATHOLOGY REPORT OF THE BIOPSY Medical Emergencies . Who to Call and When: Medical Emergencies: If at any time you feel your situation is an emergency, please call 911 immediately. . Non-Emergent Contact Non-Emergency issues call your: Primary Care Provider, Oncologist Call Non-Emergent contact if: you have a fever, your pain is not controlled, your pain is worsening, wound has increased drainage, wound has increased redness, wound has increased pain, you have any medication questions . . "Provider Documentation" section prepared by Román Banuelos. .
[2018-01-01 13:07] VITALS: BP 148/75; PULSE 87; TEMP 37; O2SAT 97
[2018-01-03 05:36] LABS: HEPATITIS A IGM TC 51813E NON-REACTIVE (NON-REACTIVE); HEPATITIS B CORE IGM TC51854R NON-REACTIVE (NON-REACTIVE)
--- NOTE | 2018-01-14 10:20 | EDITING REQUIRED CODING QUERY ---
PATHOLOGY To promote full compliance with coding requirements relating to patient care, physician participation is requested in all cases of sergeant missile crewman uncertainty. 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 Diagnosis(es): Thank you! Emilie Rankin
== END 2018-01-01 13:39 | disposition home or self-care (01) | DRG 824 ==
LOC: C.EDB 09:28 → EDBEDREQ 14:02 → C.2E 14:07 → EDBEDREQ 14:27 → ENRESERV 14:35 → OBSVTOIN 12-31 11:52
PROVIDERS: ADMIT Hospitalist; ATTEND Internal Medicine
PROC: 07B74ZX Excision of Thorax Lymphatic, Percutaneous Endoscopic Approach, Diagnostic (ICD-10-PCS; principal; 2017-12-30 09:00)
DX: C86.5 Angioimmunoblastic T-cell lymphoma (principal); I47.1 Supraventricular tachycardia; R50.9 Fever, unspecified; R74.0 Nonspecific elevation of levels of transaminase and lactic acid dehydrogenase [LDH]; I10 Essential (primary) hypertension; E78.5 Hyperlipidemia, unspecified; K21.9 Gastro-esophageal reflux disease without esophagitis; Z79.82 Long term (current) use of aspirin; Z79.899 Other long term (current) drug therapy; Z87.891 Personal history of nicotine dependence

== ENCOUNTER → 2018-01-10 | Outpatient (CLI) | payer BC ==
[~2018-01-10] MED LIST: ALPR-412 PO; DXY100 PO; NXM/40 PO; TNR50 PO
--- NOTE | 2018-01-10 10:58 | DIAGNOSTIC IMAGING REPORT ---
CHEST 2 VIEWS ROUTINE CLINICAL HISTORY: R59.0 Mediastinal lymphadenopathy adenopathy COMPARISON STUDY: 12/30/2017 FINDINGS: Moderate fullness of the mid mediastinum. Mild fullness of the hilar regions. Lungs appear clear. Diaphragms are smooth. IMPRESSION: Mild mediastinal and hilar adenopathy perhaps slightly improved compared to the prior exam. The lungs are currently considered clear. The above report was generated using voice recognition software. It may contain grammatical, syntax or spelling errors. Electronically signed by: Gerald Wilcox M.D. 01/10/2018 10:56 AM Dictated Date/Time: 01/10/2018 10:54 AM
== END | disposition home or self-care (01) ==
LOC: C.RAD 10:05
PROVIDERS: ATTEND Surgery
DX: R59.0 Localized enlarged lymph nodes (principal)

== ENCOUNTER 2018-03-09 06:07 | Inpatient (IN) | payer BC ==
[2018-03-09] VITALS (15 sets, daily range): BP systolic 101–137; BP diastolic 60–79; PULSE 81–101; TEMP 36.4–39; O2SAT 91–100; BMI 23.9
[~2018-03-09] VITALS: Ht 170.2 cm; Wt 69.2 kg
[~2018-03-09 06:07] MED LIST changes: +ACYC-57 PO; +CITA20TA9 PO
[2018-03-09] MEDS ORDERED: SODIUM CHLORIDE 0.9% 1000ML 1,000 ML IV STA ×2 (06:16→06:22)
[2018-03-09] MEDS ORDERED: ACETAMINOPHEN 500 MG TAB PO STA (06:22)
[2018-03-09] MEDS ORDERED: PIPERACILLIN/TAZOBACTAM 4.5 GM/100ML D5W IV STA (06:28)
[2018-03-09] MEDS ORDERED: SODIUM CHLORIDE 0.9% IV STA (06:30)
[2018-03-09] MEDS ORDERED: DAPTOMYCIN IV STA (06:30)
[2018-03-09] MEDS ORDERED: ONDANSETRON 8 MG/54 ML D5W IV STA (06:36)
[2018-03-09] MEDS ORDERED: DAPTOmycin IV 375 MG in SYRINGE 0 ML IV STA (06:36)
--- NOTE | 2018-03-09 06:38 | DIAGNOSTIC IMAGING REPORT ---
CHEST ONE VIEW PORTABLE CLINICAL HISTORY: Fever, cough. Patient on chemotherapy. COMPARISON STUDY: January 10, 2018 FINDINGS: The heart is normal in size. There is resolving right paratracheal lymphadenopathy. There is no focal pulmonary consolidation. There are no pleural effusions. There is no failure.[ IMPRESSION: 1. Resolving right paratracheal lymphadenopathy 2. No evidence of acute parenchymal consolidation Electronically signed by: Paul Carrasco M.D. 03/09/2018 6:37 AM Dictated Date/Time: 03/09/2018 6:36 AM
[2018-03-09] MEDS ORDERED: ZVR400 PO (06:42)
[2018-03-09] MEDS ORDERED: DFL100 PO (06:42)
[2018-03-09] MEDS ORDERED: LEVO1TAB35 PO (06:42)
[2018-03-09 06:46] LABS: INR 1.1 (0.9-1.1)
[2018-03-09] MEDS ORDERED: ONDANSETRON INJ 8 MG in DEXTROSE 5% 50ML 50 ML IV STA (06:50)
[2018-03-09 06:56] LABS: HEMATOCRIT 25.8 % (42-52); HEMOGLOBIN 8.7 g/dL (14.0-18.0); MEAN CELL VOLUME 83.8 fL (80-100); MEAN CORPUSCULAR HEMOGLOBIN 28.2 pg (25-34); MEAN CORPUSCULAR HGB CONC 33.7 g/dl (32-36); NUCLEATED RED BLOOD CELL ABS 0.02 K/uL (0-0); PLATELET COUNT 124 K/uL (130-400); RED CELL DISTRIBUTION WIDTH CV 19.2 % (11.5-14.5); RED CELL DISTRIBUTION WIDTH SD 57.9 fL (36.4-46.3); WHITE BLOOD COUNT 1.06 K/uL (4.8-10.8)
[2018-03-09 06:57] LABS: ALBUMIN 2.7 gm/dl (3.4-5.0); ALT/SGPT 57 U/L (12-78); AST/SGOT 37 U/L (15-37); BLOOD UREA NITROGEN 9 mg/dl (7-18); CALCIUM 8.9 mg/dl (8.5-10.1); CARBON DIOXIDE 28 mmol/L (21-32); CREATININE 1.09 mg/dl (0.60-1.40); GLUCOSE 116 mg/dl (70-99); POTASSIUM 3.4 mmol/L (3.5-5.1); SODIUM 130 mmol/L (136-145)
[2018-03-09 07:02] LABS: ALKALINE PHOSPHATASE 129 U/L (45-117); CKMB < 0.5 ng/ml (0.5-3.6); TOTAL PROTEIN 7.2 gm/dl (6.4-8.2)
--- NOTE | 2018-03-09 07:11 | EMERGENCY ROOM VISIT NOTE ---
History Report prepared by Eber: Mg Guerra Under the Supervision of: Dr. Clay Danielle M.D. First contact with patient: 06:17 Chief Complaint: FEVER Stated Complaint: FEVER - ON CHEMOTHERAPY History of Present Illness The patient is a 62 year old male who presents to the Emergency Room with complaints of a persistent fever that began this past weekend, 3 days ago. The patient is currently receiving chemotherapy treatments for T-cell lymphoma. He has been taking Tylenol for his fever, and had his last dosage at 1900 yesterday , 12 hours ago. In addition to the Tylenol the patient is also on Levaquin and Diflucan. The patient's only complaint is a cough that onset with the fever. Source of History: patient Onset: 3 days ago Position: chest (Cough) Quality: other (Fever) Timing: other (Persistent) Associated Symptoms: + fevers, + cough Review of Systems See HPI for pertinent positives & negatives. A total of 10 systems reviewed and were otherwise negative. Past Medical & Surgical Medical Problems: (1) Dyslipidemia (2) GERD (gastroesophageal reflux disease) (3) History of paroxysmal supraventricular tachycardia (4) Hypertension (5) Neutropenic fever (6) Tachycardia Family History Colon cancer GRANDFATHER Heart disease FATHER Kidney disease MOTHER Prostate cancer FATHER Social History Smoking Status: Never Smoker Alcohol Use: none Drug Use: none Marital Status: Housing Status: lives with family Current/Historical Medications Scheduled Acyclovir (Acyclovir), 400 MG PO BID Alprazolam (Alprazolam), 0.25 MG PO BID Atenolol (Atenolol), 50 MG PO DAILY Citalopram Hydrobromide (Celexa), 1 TAB PO DAILY Esomeprazole Magnesium (Nexium), 40 MG PO DAILY Fluconazole (Fluconazole), 100 MG PO DAILY Levofloxacin (Levaquin), 750 MG PO DAILY Allergies Coded Allergies: No Known Allergies (Unverified , 03/09/18) Physical Exam Vital Signs Date Time Temp Pulse Resp B/P (MAP) Pulse Ox O2 Delivery O2 Flow Rate FiO2 03/09/18 08:45 85 19 111/67 99 Nasal Cannula 1.0 03/09/18 08:45 37.0 84 19 111/67 99 1.0 03/09/18 08:30 87 19 105/63 98 Nasal Cannula 1.0 03/09/18 08:15 87 23 111/62 99 Nasal Cannula 1.0 03/09/18 08:02 89 20 104/64 98 Nasal Cannula 1.0 03/09/18 07:48 90 24 115/65 98 Nasal Cannula 1.0 03/09/18 07:41 97 Nasal Cannula 1.0 03/09/18 07:30 97 19 122/68 97 Nasal Cannula 1.0 03/09/18 07:15 100 22 107/55 91 Room Air 03/09/18 07:13 38.3 03/09/18 07:00 100 23 132/67 92 Room Air 03/09/18 06:49 104 20 133/67 94 Room Air 03/09/18 06:32 113 03/09/18 06:09 38.8 116 18 96/64 96 Room Air Physical Exam GENERAL: Awake, alert, Cachectic in appearance. HENT: Normocephalic, atraumatic. Oropharynx unremarkable. EYES: Normal conjunctiva. Sclera non-icteric. NECK: Supple. No nuchal rigidity. FROM. No JVD. RESPIRATORY: Clear to auscultation. CARDIAC: Regular rate, normal rhythm. Extremities warm and well perfused. Pulses equal. ABDOMEN: Soft, non-distended. No tenderness to palpation. No rebound or guarding. No masses. RECTAL: Deferred. MUSCULOSKELETAL: Chest examination reveals no tenderness. The back is symmetrical on inspection without obvious abnormality. There is no CVA tenderness to palpation. No joint edema. LOWER EXTREMITIES: Calves are equal size bilaterally and non-tender. No edema. No discoloration. NEURO: Normal sensorium. No sensory or motor deficits noted. SKIN: No rash or jaundice noted. Medical Decision & Procedures ER Provider Diagnostic Interpretation: Radiology results as stated below per my review and radiologist interpretation: CHEST ONE VIEW PORTABLE CLINICAL HISTORY: Fever, cough. Patient on chemotherapy. COMPARISON STUDY: January 10, 2018 FINDINGS: The heart is normal in size. There is resolving right paratracheal lymphadenopathy. There is no focal pulmonary consolidation. There are no pleural effusions. There is no failure.[ IMPRESSION: 1. Resolving right paratracheal lymphadenopathy 2. No evidence of acute parenchymal consolidation Electronically signed by: Paul Carrasco M.D. 03/09/2018 6:37 AM Dictated Date/Time: 03/09/2018 6:36 AM Laboratory Results 03/09/18 06:30 Red Blood Count 3.08, Mean Corpuscular Volume 83.8, Mean Corpuscular Hemoglobin 28.2, Mean Corpuscular Hemoglobin Concent 33.7, Mean Platelet Volume 10.0, Neutrophils (%) (Auto) 62.3, Lymphocytes (%) (Auto) 13.2, Monocytes (%) (Auto) 20.8, Eosinophils (%) (Auto) 0.9, Basophils (%) (Auto) 0.9, Neutrophils # (Auto ) 0.66, Lymphocytes # (Auto) 0.14, Monocytes # (Auto) 0.22, Eosinophils # (Auto ) 0.01, Basophils # (Auto) 0.01 03/09/18 06:30 Test 03/09/18 06:26 03/09/18 06:30 03/09/18 06:35 03/09/18 07:30 Bedside Lactic Acid Venous 3.06 mmol/L (0.90-1.70) White Blood Count 1.06 K/uL (4.8-10.8) Red Blood Count 3.08 M/uL (4.7-6.1) Hemoglobin 8.7 g/dL (14.0-18.0) Hematocrit 25.8 % (42-52) Mean Corpuscular Volume 83.8 fL (80-100) Mean Corpuscular Hemoglobin 28.2 pg (25-34) Mean Corpuscular Hemoglobin Concent 33.7 g/dl (32-36) Platelet Count 124 K/uL (130-400) Mean Platelet Volume 10.0 fL (7.4-10.4) Neutrophils (%) (Auto) 62.3 % Lymphocytes (%) (Auto) 13.2 % Monocytes (%) (Auto) 20.8 % Eosinophils (%) (Auto) 0.9 % Basophils (%) (Auto) 0.9 % Neutrophils # (Auto) 0.66 K/uL (1.4-6.5) Lymphocytes # (Auto) 0.14 K/uL (1.2-3.4) Monocytes # (Auto) 0.22 K/uL (0.11-0.59) Eosinophils # (Auto) 0.01 K/uL (0-0.5) Basophils # (Auto) 0.01 K/uL (0-0.2) RDW Standard Deviation 57.9 fL (36.4-46.3) RDW Coefficient of Variation 19.2 % (11.5-14.5) Immature Granulocyte % (Auto) 1.9 % Immature Granulocyte # (Auto) 0.02 K/uL (0.00-0.02) Nucleated RBC Absolute Count (auto) 0.02 K/uL (0-0) Nucleated Red Blood Cells % 2.1 % Toxic Granulation 2+ Dohle Bodies 1+ Giant Platelets 1+ Prothrombin Time 11.8 SECONDS (9.0-12.0) Prothromb Time International Ratio 1.1 (0.9-1.1) Anion Gap 9.0 mmol/L (3-11) Est Creatinine Clear Calc Drug Dose 60.9 ml/min Estimated GFR () 83.3 Estimated GFR (Non- 71.9 BUN/Creatinine Ratio 8.1 (10-20) Calcium Level 8.9 mg/dl (8.5-10.1) Magnesium Level 1.3 mg/dl (1.8-2.4) Total Bilirubin 0.5 mg/dl (0.2-1) Direct Bilirubin 0.2 mg/dl (0-0.2) Aspartate Amino Transf (AST/SGOT) 37 U/L (15-37) Alanine Aminotransferase (ALT/SGPT) 57 U/L (12-78) Alkaline Phosphatase 129 U/L (45-117) Total Creatine Kinase 22 U/L (39-308) Creatine Kinase MB < 0.5 ng/ml (0.5-3.6) Creatine Kinase MB Ratio (0-3.0) Troponin I 0.033 ng/ml (0-0.045) Total Protein 7.2 gm/dl (6.4-8.2) Albumin 2.7 gm/dl (3.4-5.0) Influenza Type A (RT-PCR) Neg for Influ A (NEG) Influenza Type B (RT-PCR) Neg for Influ B (NEG) Urine Color YELLOW Urine Appearance CLEAR (CLEAR) Urine pH 7.5 (4.5-7.5) Urine Specific [place] 1.015 (1.000-1.030) Urine Protein 1+ (NEG) Urine Glucose (UA) NEG (NEG) Urine Ketones NEG (NEG) Urine Occult Blood NEG (NEG) Urine Nitrite NEG (NEG) Urine Bilirubin NEG (NEG) Urine Urobilinogen NEG (NEG) Urine Leukocyte Esterase NEG (NEG) Urine WBC (Auto) 1-5 /hpf (0-5) Urine RBC (Auto) 0-4 /hpf (0-4) Urine Hyaline Casts (Auto) 1-5 /lpf (0-5) Urine Epithelial Cells (Auto) 20-30 /lpf (0-5) Urine Bacteria (Auto) NEG (NEG) Labs reviewed by ED physician. Medications Administered Medications (Trade) Dose Ordered Sig/Selena Route Start Time Stop Time Status Last Admin Dose Admin Sodium Chloride 1,000 ml @ 999 mls/hr Q1H1M STAT IV 03/09/18 06:16 03/09/18 07:16 DC 03/09/18 06:36 999 MLS/HR Sodium Chloride 1,000 ml @ 999 mls/hr Q1H1M STAT IV 03/09/18 06:22 03/09/18 07:22 DC 03/09/18 06:38 999 MLS/HR Acetaminophen (Tylenol Tab) 1,000 mg NOW STAT PO 03/09/18 06:22 03/09/18 06:25 DC 03/09/18 06:37 1,000 MG Piperacillin Sod/ Tazobactam Sod (Zosyn Iv) 4.5 gm NOW STAT IV 03/09/18 06:28 03/09/18 06:29 DC 03/09/18 06:37 4.5 GM Daptomycin 375 mg/ Syringe 7.5 ml @ 3.75 mls/ min NOW STAT IV 03/09/18 06:36 03/09/18 06:37 DC 03/09/18 06:49 3.75 MLS/MIN Ondansetron HCl 8 mg/Dextrose 54 ml @ 216 mls/hr NOW STAT IV 03/09/18 06:50 03/09/18 07:04 DC 03/09/18 07:08 216 MLS/HR Potassium Chloride (Klor-Con Tab) 40 meq NOW STAT PO 03/09/18 07:13 03/09/18 07:14 DC 03/09/18 07:27 40 MEQ ECG Per My Interpretation Indication: other (Sepsis) Rate (beats per minute): 107 Rhythm: sinus tachycardia Findings: other (No VALARIE/STD) ED Course 0623: Past medical records reviewed. The patient was evaluated in room A2. A complete history and physical examination was performed. 0616: Ordered Sodium Chloride 1000 mL @ 999 mL/hr IV 0622: Ordered Tylenol 1000 mg PO, Sodium Chloride 1000 mL @ 999 mL/hr IV. 0628: Ordered Zosyn 4.5 gm IV. 0636: Ordered Zofran 8 mg IV, Daptomycin 7.5 mL @ 3.75 mLs/min IV. 0650: Ordered Ondansetron 8 mg IV. 0711: I discussed the case with Dr. Lakisha Kuo. He will evaluate the patient for further treatment. Medical Decision Differential diagnosis: Etiologies such as viral syndrome, otitis, pharyngitis, pneumonia, influenza, meningitis, urinary tract infection, sepsis, bacteremia, as well as others were entertained. This is a 62-year-old male who presents the emergency department hypotensive tachycardic and with a fever. Based on the patient's vital signs a septic alert was initiated. Patient was given 30 mL's per kilogram of fluid along with Tylenol. A lactic acid was obtained which was found to be elevated at 3. The patient was given broad-spectrum antibiotics here in the emergency department. Repeat examination revealed improvement in the patient's blood pressure. I did discuss the case with the hospitalist service who agreed to admit the patient. Patient was in agreement with the treatment plan. Medication Reconcilliation Current Medication List: was personally reviewed by me Blood Pressure Screening Patient's blood pressure: Low blood pressure Consults Time Called: 07 Consulting Physician: Dr. Lakisha Kuo Returned Call: 0711 I discussed the case with Dr. Lakisha Kuo. He will evaluate the patient for further treatment. Impression Primary Impression: Septic shock Critical Care .I have personally spent greater than 90 minutes of critical care time in the direct management of this patient. This includes bedside care, interpretation of diagnostic studies, and testing, discussion with consultants, patient, and family members, and other required patient management activities. This 90 minutes is in excess of all separately billable procedures. Scribe Attestation The scribe's documentation has been prepared under my direction and personally reviewed by me in its entirety. I confirm that the note above accurately reflects all work, treatment, procedures, and medical decision making performed by me. Departure Information Dispostion Being Evaluated By Hospitalist Referrals Rodrigo Alamo M.D. (PCP) Patient Instructions [facility] Seps[facility] Post Crystalloid Evaluation Date: March 09, 2018 Time: 06:23 Capillary Refill Exam Normal (less than 2 seconds) Cardiopulmonary Evaluation Lung Exam: chest non-tender, lungs clear, normal breath sounds, no respiratory distress, no accessory muscle use Heart Exam: regular rate, rhythm, no edema, no gallop, no JVD, no murmur, normal peripheral pulses Passive Leg Raise Negative (normal) Peripheral Pulse Evaluation Increased Skin Exam Pale Vitals Last Vital Signs Documentation Date Time Temp Pulse Resp B/P (MAP) Pulse Ox O2 Delivery O2 Flow Rate FiO2 03/09/18 08:45 85 19 111/67 99 Nasal Cannula 1.0 03/09/18 08:45 37.0 Presence Of Septic Shock
[2018-03-09] MEDS ORDERED: POTASSIUM CHLORIDE 20 MEQ TABCR PO STA (07:13)
[2018-03-09 07:23] LABS: BASO % 0.9 %; BASO ABS # 0.01 K/uL (0-0.2); EOS % 0.9 %; EOS ABS # 0.01 K/uL (0-0.5); IG# 0.02 K/uL (0.00-0.02); LYMPH % 13.2 %; LYMPH ABS # 0.14 K/uL (1.2-3.4); MONO % 20.8 %; MONO ABS # 0.22 K/uL (0.11-0.59); NEUT % 62.3 %; NEUT ABS # 0.66 K/uL (1.4-6.5)
[2018-03-09 07:45] LABS: INFLUENZA A PCR Neg for Influ A (NEG)
[2018-03-09 07:46] LABS: INFLUENZA B PCR Neg for Influ B (NEG)
[2018-03-09] MEDS ORDERED: PIPERACILL/TAZOBAC IV 4.5 GM in DEXTROSE 5% 100ML 100 ML IV SCH (09:00)
[2018-03-09] MEDS ORDERED: ALPRAZOLAM 0.25 MG TAB PO SCH (09:00)
[2018-03-09] MEDS ORDERED: DAPTOmycin IV 300 MG in SODIUM CHLORIDE 0.9% 50ML 50 ML IV SCH (09:00)
[2018-03-09] MEDS ORDERED: PIPERACILL/TAZOBAC CONSULT ACTIVE PRN (09:00)
[2018-03-09] MEDS ORDERED: DAPTOMYCIN CONSULT ACTIVE PRN (11:00)
[2018-03-09] MEDS: ENOXAPARIN 40 MG/0.4 ML SYR SQ SCH (11:00)
--- NOTE | 2018-03-09 11:07 | History and Physical ---
History & Physical Date & Time of Service: March 09, 2018 at 10:54 Chief Complaint: Neutropenic Fever Primary Care Physician: Rodrigo Alamo M.D. 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 He received his chemo with CHOP on 22 February and also took etoposide on February 22, and . He has been complaining of fever since Wednesday last associated with sweating and weakness and tiredness. He denies to any cough any phlegm, any urinary symptoms , any nausea and vomiting, or any open wounds. He was noted to have a temperature of 1 or 2F early this morning at that time he was advised to come to the emergency room for further evaluation. He was noted to have low white count at 1.66 and low neutrophil at 0.66 and other investigations where fairly unremarkable The case was discussed with oncologist and the patient was admitted with Im neutropenic fever and started with daptomycin and Zosyn. Blood and urine cultures were sent Past Medical/Surgical History Medical Problems: (1) Chest mass (2) Chills (3) Dyslipidemia (4) Fever (5) GERD (gastroesophageal reflux disease) (6) History of paroxysmal supraventricular tachycardia (7) Hypertension (8) Neutropenic fever (9) Tachycardia #10. 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 PAST SURGICAL HISTORY Minor dental surgery Family History Colon cancer GRANDFATHER Heart disease FATHER Kidney disease MOTHER Prostate cancer FATHER Social History Smoking Status: Never Smoker Smokeless Tobacco Use: No Alcohol Use: occasionally Drug Use: none Marital Status: Housing status: lives with significant other Immunizations History of Influenza Vaccine: Yes History of Tetanus Vaccine?: Yes Allergies Coded Allergies: No Known Allergies (Unverified , 03/09/18) Home Medications Scheduled Acyclovir (Acyclovir), 400 MG PO BID Alprazolam (Alprazolam), 0.25 MG PO BID Atenolol (Atenolol), 50 MG PO DAILY Citalopram Hydrobromide (Celexa), 1 TAB PO DAILY Esomeprazole Magnesium (Nexium), 40 MG PO DAILY Fluconazole (Fluconazole), 100 MG PO DAILY Levofloxacin (Levaquin), 750 MG PO DAILY Review of Systems Constitutional: + fever, + chills, + sweats, + weakness, + fatigue Neurologic: + weakness, + vertigo Physical Exam Vital Signs Date Time Temp Pulse Resp B/P (MAP) Pulse Ox O2 Delivery O2 Flow Rate FiO2 03/09/18 10:45 36.7 81 18 104/63 96 03/09/18 10:18 36.7 84 16 113/69 97 03/09/18 10:01 84 15 108/62 98 Nasal Cannula 1.0 03/09/18 09:46 81 19 113/64 98 Nasal Cannula 1.0 03/09/18 09:39 36.9 83 20 108/62 100 1.0 03/09/18 09:36 82 20 108/62 99 Nasal Cannula 1.0 03/09/18 09:31 85 25 111/67 99 Nasal Cannula 1.0 03/09/18 09:16 84 20 105/68 99 Nasal Cannula 1.0 03/09/18 09:09 37.0 82 18 101/60 99 1.0 03/09/18 09:08 101/60 Nasal Cannula 1.0 03/09/18 09:01 106/75 Nasal Cannula 1.0 03/09/18 09:00 85 17 99 Nasal Cannula 1.0 03/09/18 08:45 85 19 111/67 99 Nasal Cannula 1.0 03/09/18 08:45 37.0 84 19 111/67 99 1.0 03/09/18 08:30 87 19 105/63 98 Nasal Cannula 1.0 03/09/18 08:15 87 23 111/62 99 Nasal Cannula 1.0 03/09/18 08:02 89 20 104/64 98 Nasal Cannula 1.0 03/09/18 07:48 90 24 115/65 98 Nasal Cannula 1.0 03/09/18 07:41 97 Nasal Cannula 1.0 03/09/18 07:30 97 19 122/68 97 Nasal Cannula 1.0 03/09/18 07:15 100 22 107/55 91 Room Air 03/09/18 07:13 38.3 03/09/18 07:00 100 23 132/67 92 Room Air 03/09/18 06:49 104 20 133/67 94 Room Air 03/09/18 06:32 113 03/09/18 06:09 38.8 116 18 96/64 96 Room Air General Appearance: + mild distress Head: normocephalic Eyes: normal inspection, PERRL ENT: normal ENT inspection Neck: supple Respiratory/Chest: chest non-tender, lungs clear, normal breath sounds Cardiovascular: regular rate, rhythm, no edema, no gallop, no JVD, no murmur Abdomen/GI: normal bowel sounds Genitourinary - Male: normal male genitalia Back: normal inspection Extremities/Musculoskelatal: normal inspection Neurologic/Psych: no motor/sensory deficits, alert, normal mood/affect, normal reflexes, + abnormal cerebellar tests Skin: normal color Lymphatic: no adenopathy Diagnostics Laboratory Results Results Past 24 Hours Test 03/09/18 06:26 03/09/18 06:30 03/09/18 06:35 03/09/18 07:30 Range/Units Bedside Lactic Acid Venous 3.06 0.90-1.70 mmol/L White Blood Count 1.06 4.8-10.8 K/uL Red Blood Count 3.08 4.7-6.1 M/uL Hemoglobin 8.7 14.0-18.0 g/dL Hematocrit 25.8 42-52 % Mean Corpuscular Volume 83.8 80-100 fL Mean Corpuscular Hemoglobin 28.2 25-34 pg Mean Corpuscular Hemoglobin Concent 33.7 32-36 g/dl Platelet Count 124 130-400 K/uL Mean Platelet Volume 10.0 7.4-10.4 fL Neutrophils (%) (Auto) 62.3 % Lymphocytes (%) (Auto) 13.2 % Monocytes (%) (Auto) 20.8 % Eosinophils (%) (Auto) 0.9 % Basophils (%) (Auto) 0.9 % Neutrophils # (Auto) 0.66 1.4-6.5 K/uL Lymphocytes # (Auto) 0.14 1.2-3.4 K/uL Monocytes # (Auto) 0.22 0.11-0.59 K/uL Eosinophils # (Auto) 0.01 0-0.5 K/uL Basophils # (Auto) 0.01 0-0.2 K/uL RDW Standard Deviation 57.9 36.4-46.3 fL RDW Coefficient of Variation 19.2 11.5-14.5 % Immature Granulocyte % (Auto) 1.9 % Immature Granulocyte # (Auto) 0.02 0.00-0.02 K/uL Nucleated RBC Absolute Count (auto) 0.02 0-0 K/uL Nucleated Red Blood Cells % 2.1 % Toxic Granulation 2+ Dohle Bodies 1+ Giant Platelets 1+ Prothrombin Time 11.8 9.0-12.0 SECONDS Prothromb Time International Ratio 1.1 0.9-1.1 Sodium Level 130 136-145 mmol/L Potassium Level 3.4 3.5-5.1 mmol/L Chloride Level 93 98-107 mmol/L Carbon Dioxide Level 28 21-32 mmol/L Anion Gap 9.0 3-11 mmol/L Blood Urea Nitrogen 9 7-18 mg/dl Creatinine 1.09 0.60-1.40 mg/dl Est Creatinine Clear Calc Drug Dose 60.9 ml/min Estimated GFR () 83.3 Estimated GFR (Non- 71.9 BUN/Creatinine Ratio 8.1 10-20 Random Glucose 116 70-99 mg/dl Calcium Level 8.9 8.5-10.1 mg/dl Magnesium Level 1.3 1.8-2.4 mg/dl Total Bilirubin 0.5 0.2-1 mg/dl Direct Bilirubin 0.2 0-0.2 mg/dl Aspartate Amino Transf (AST/SGOT) 37 15-37 U/L Alanine Aminotransferase (ALT/SGPT) 57 12-78 U/L Alkaline Phosphatase 129 45-117 U/L Total Creatine Kinase 22 39-308 U/L Creatine Kinase MB < 0.5 0.5-3.6 ng/ml Creatine Kinase MB Ratio 0-3.0 Troponin I 0.033 0-0.045 ng/ml Total Protein 7.2 6.4-8.2 gm/dl Albumin 2.7 3.4-5.0 gm/dl Influenza Type A (RT-PCR) Neg for Influ A NEG Influenza Type B (RT-PCR) Neg for Influ B NEG Urine Color YELLOW Urine Appearance CLEAR CLEAR Urine pH 7.5 4.5-7.5 Urine Specific [place] 1.015 1.000-1.030 Urine Protein 1+ NEG Urine Glucose (UA) NEG NEG Urine Ketones NEG NEG Urine Occult Blood NEG NEG Urine Nitrite NEG NEG Urine Bilirubin NEG NEG Urine Urobilinogen NEG NEG Urine Leukocyte Esterase NEG NEG Urine WBC (Auto) 1-5 0-5 /hpf Urine RBC (Auto) 0-4 0-4 /hpf Urine Hyaline Casts (Auto) 1-5 0-5 /lpf Urine Epithelial Cells (Auto) 20-30 0-5 /lpf Urine Bacteria (Auto) NEG NEG Microbiology Results 03/09/18 Fungal Smear, Received Pending 03/09/18 Fungal Culture, Received Pending 03/09/18 Blood Culture, Received Pending 03/09/18 Blood Culture, Received Pending CXR normal Normal EKG Impression Assessment and Plan NEUTROPENIC FEVER Blood and urine culture have been taken He was started with IV daptomycin and Zosyn, will continue those We will hold his Levaquin for now he has discussed with Continue with prophylactic fluconazole and acyclovir Monitor CBC Case discussed with oncologist 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 with CHOP and etoposide Also received intrathecal chemotherapy Management will be as per oncologist HYPERTENSION Continue with atenolol BP is a stable HYPERLIPIDEMIA Continue statin GERD Continue PPI GERD Continue Xanax CODE STATUS: Full In my clinical assessment the beneficially meets criteria as per CMS for 2 midnight stay in the hospital Resuscitation Status VTE Prophylaxis Will order VTE Prophylaxis: Yes
[2018-03-09] MEDS: PANTOprazole SOD 40 MG TAB PO SCH (11:38)
[2018-03-09] MEDS: FLUCONAZOLE 100 MG TAB PO SCH (11:39)
[2018-03-09] MEDS: ACYCLOVIR 400 MG TAB PO SCH ×2 (11:39→21:18)
[2018-03-09] MEDS: CITALOPRAM 20 MG TAB PO SCH (11:39)
[2018-03-09] MEDS: PIPERACILL/TAZOBAC IV 3.375 GM in D5W 100ML IV SCH ×2 (12:47→21:19)
[2018-03-09] MEDS: MAGNESIUM SULFATE 1GM / D5W 100 ML IV SCH ×2 (14:55→16:08)
[2018-03-09] MEDS: ONDANSETRON INJ 2 MG/ML 2 ML VIAL IV PRN (14:55)
[2018-03-09] MEDS: ACETAMINOPHEN 325 MG TAB PO PRN (18:27)
[2018-03-09] MEDS ORDERED: ALPRAZOLAM 0.25 MG TAB PO PRN (20:00)
[2018-03-09] MEDS: LORAZEPAM 1 MG TAB PO PRN (21:23)
[2018-03-10] VITALS (9 sets, daily range): BP systolic 110–142; BP diastolic 64–74; PULSE 84–113; TEMP 37–38.6; O2SAT 91–95; BMI 23.7
[2018-03-10] MEDS: ACETAMINOPHEN 325 MG TAB PO PRN ×4 (03:48→23:31)
[2018-03-10] MEDS: PIPERACILL/TAZOBAC IV 3.375 GM in D5W 100ML IV SCH ×3 (04:28→19:57)
[2018-03-10] MEDS: DAPTOmycin IV 375 MG in SYRINGE 0 ML IV SCH (05:55)
[2018-03-10 06:28] LABS: HEMATOCRIT 24.5 % (42-52); HEMOGLOBIN 8.4 g/dL (14.0-18.0); MEAN CELL VOLUME 81.7 fL (80-100); MEAN CORPUSCULAR HGB CONC 34.3 g/dl (32-36); MEAN PLATELET VOLUME 9.3 fL (7.4-10.4); NUCLEATED RED BLOOD CELL ABS 0.03 K/uL (0-0); PLATELET COUNT 149 K/uL (130-400); RED CELL DISTRIBUTION WIDTH CV 20.3 % (11.5-14.5); RED CELL DISTRIBUTION WIDTH SD 59.9 fL (36.4-46.3); WHITE BLOOD COUNT 1.07 K/uL (4.8-10.8)
[2018-03-10 07:01] LABS: CALCIUM 8.7 mg/dl (8.5-10.1); CREATININE 0.87 mg/dl (0.60-1.40); PHOSPHORUS 2.5 mg/dl (2.5-4.9); POTASSIUM 3.2 mmol/L (3.5-5.1)
[2018-03-10] MEDS: ACYCLOVIR 400 MG TAB PO SCH ×2 (08:25→20:02)
[2018-03-10] MEDS: FLUCONAZOLE 100 MG TAB PO SCH (08:25)
[2018-03-10] MEDS: PANTOprazole SOD 40 MG TAB PO SCH (08:25)
[2018-03-10] MEDS: CITALOPRAM 20 MG TAB PO SCH (08:25)
[2018-03-10 09:38] LABS: HEMATOCRIT 28.1 % (42-52); HEMOGLOBIN 9.6 g/dL (14.0-18.0); MEAN CELL VOLUME 82.2 fL (80-100); MEAN CORPUSCULAR HEMOGLOBIN 28.1 pg (25-34); MEAN CORPUSCULAR HGB CONC 34.2 g/dl (32-36); MEAN PLATELET VOLUME 9.8 fL (7.4-10.4); NUCLEATED RED BLOOD CELL ABS 0.03 K/uL (0-0); PLATELET COUNT 180 K/uL (130-400); RED CELL DISTRIBUTION WIDTH CV 20.2 % (11.5-14.5); RED CELL DISTRIBUTION WIDTH SD 59.9 fL (36.4-46.3); WHITE BLOOD COUNT 1.23 K/uL (4.8-10.8)
--- NOTE | 2018-03-10 09:55 | Clinical Documentation Query ---
Dr. [facility] : CLINICAL DOCUMENTATION QUERIES QUERY 1 OF 2 Patient is a 62 year old male admitted for evaluation of fever, diaphoresis, weakness, and fatigue, in the setting of neutropenia. On admission, temperature 38.8, HR 116, BP 96/64, lactic acid 3.06 mmol/L. He recieved 2L bolus in the ED when "code sepsis" was called. Blood cultures obtained x 2. He is being treated with Daptomycin and Zosyn. As appropriate, consider documentation as suggested below. Thank you. In your clinical opinion is this patient being managed for: ( + ) Sepsis, unknown source, POA ( ) Not Agree ( ) Other explanation of clinical findings (No explanation is considered a No Response) ( ) Unable to determine ( ) Need to Discuss (Phone CDS or qliq) (No discussion is considered a No Response) The medical record reflects the following clinical findings, treatment, and risk factors. Clinical Indicators: As above Treatment:He recieved 2L bolus in the ED when "code sepsis" was called. Blood cultures obtained x 2. He is being treated with Daptomycin and Zosyn Risk Factors: Neutropenia QUERY 2 OF 2 Hematology review demonstrates neutropenia, anemia, and thrombocytopenia. This is in the setting of CHOP and Etoposide. As appropriate, consider documentation as suggested below as this impacts accurate DRG assignment. Thank you. In your clinical opinion is this patient being managed for: ( + ) Antineoplastic chemotherapy induced pancytopenia ( ) Not Agree ( ) Other explanation of clinical findings (No explanation is considered a No Response) ( ) Unable to determine ( ) Need to Discuss (Phone CDS or qliq) (No discussion is considered a No Response) The medical record reflects the following clinical findings, treatment, and risk factors. Clinical Indicators: As above Treatment: Serial hematology, IV antibiotics, transfusion of PRBC's Risk Factors: Chemotherapy Please clarify and document your clinical opinion in the progress notes and discharge summary. Terms such as "probable", "suspected", "likely", "questionable", "possible", or "still to be ruled out" are acceptable. IF IN AGREEMENT, YOU MUST DOCUMENT ABOVE DIAGNOSTIC STATEMENT IN DAILY PROGRESS NOTES AND DISCHARGE SUMMARY. This document is not part of the patient's record. Thank You, Jason Herrera, FREDDY [phone]
[2018-03-10] MEDS: ENOXAPARIN 40 MG/0.4 ML SYR SQ SCH (10:41)
[2018-03-10] MEDS: ONDANSETRON INJ 2 MG/ML 2 ML VIAL IV PRN (11:02)
[2018-03-10] MEDS ORDERED: NURSING VERBAL MED ORDER ONE (13:00)
[2018-03-10] MEDS: NSS + 20MEQ KCL 1000ML 1,000 ML IV SCH (14:35)
--- NOTE | 2018-03-10 14:47 | Progress Note ---
Progress Note Date of Service March 10, 2018. Progress Note ID Consult Dictated #[id number] A/P: 1. Neutropenic Fever -Continue abx, follow cultures, ANC improving -See consult for details, thank you
--- NOTE | 2018-03-10 14:59 | Progress Note ---
Internal Med Progress Note Date of Service: March 10, 2018. Provider Documentation: SUBJECTIVE: The patient was seen and examined in medical floor Admitted yesterday with sepsis with the neutropenia Has been getting chemo for angioimmunoblastic lymphoma Has had fever this morning without any other symptoms OBJECTIVE: Vital Signs-as noted below Exam: General-no distress at rest Eyes-normal ENT-normal Neck-supple Lungs-decreased breath sounds right side mostly but no crackles or wheezing Heart-regular Abdomen-benign, soft, nontender, no organomegaly Extremities-trace edema bilaterally Neuro-alert, awake and oriented 3 Generally weak No focal neuro deficit Lab data as noted below. ASSESSMENT & PLAN: SEPSIS due to unknown cause at [facility] NEUTROPENIC FEVER 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 Blood and urine culture have been taken He was started with IV daptomycin and Zosyn, will continue those We will hold his Levaquin for now he has discussed with Continue with prophylactic fluconazole and acyclovir Monitor CBC-improving Case discussed with oncologist We will get CT of the abdomen and pelvis and CT of the chest with contrast to rule out any focus of infection We will get ID consult ANGIOIMMUNOBLASTIC LYMPHOMA Has been getting chemotherapy with CHOP and etoposide Also received intrathecal chemotherapy Management will be as per oncologist HYPERTENSION Continue with atenolol BP is a stable HYPERLIPIDEMIA Continue statin GERD Continue PPI GERD Continue Xanax CODE STATUS: Full Case discussed with the daughter who is a physician at [facility] Vital Signs: Date Time Temp Pulse Resp B/P (MAP) Pulse Ox O2 Delivery O2 Flow Rate FiO2 03/10/18 14:05 38.4 03/10/18 12:56 38.6 03/10/18 11:36 38.0 96 18 118/67 (84) 95 Room Air 03/10/18 09:00 Room Air 03/10/18 07:26 37.0 88 18 117/69 (85) 91 Room Air 03/10/18 04:15 37.3 113 20 141/74 (96) 92 Room Air 03/10/18 00:00 Room Air 03/09/18 23:59 37.0 92 20 129/76 (93) 97 Room Air 03/09/18 20:10 Room Air 03/09/18 19:48 37.2 101 20 131/68 (89) 91 Room Air 03/09/18 19:40 37.3 03/09/18 18:26 39.0 03/09/18 17:07 37.6 03/09/18 16:00 95 Room Air 03/09/18 14:57 37.0 90 18 137/79 (98) 95 Room Air Lab Results: Results Past 24 Hours Test 03/10/18 06:17 03/10/18 09:17 Range/Units White Blood Count 1.07 1.23 4.8-10.8 K/uL Red Blood Count 3.00 3.42 4.7-6.1 M/uL Hemoglobin 8.4 9.6 14.0-18.0 g/dL Hematocrit 24.5 28.1 42-52 % Mean Corpuscular Volume 81.7 82.2 80-100 fL Mean Corpuscular Hemoglobin 28.0 28.1 25-34 pg Mean Corpuscular Hemoglobin Concent 34.3 34.2 32-36 g/dl RDW Standard Deviation 59.9 59.9 36.4-46.3 fL RDW Coefficient of Variation 20.3 20.2 11.5-14.5 % Platelet Count 149 180 130-400 K/uL Mean Platelet Volume 9.3 9.8 7.4-10.4 fL Nucleated RBC Absolute Count (auto) 0.03 0.03 0-0 K/uL Nucleated Red Blood Cells % 3.1 2.6 % Sodium Level 135 136-145 mmol/L Potassium Level 3.2 3.5-5.1 mmol/L Chloride Level 99 98-107 mmol/L Carbon Dioxide Level 27 21-32 mmol/L Anion Gap 8.0 3-11 mmol/L Blood Urea Nitrogen 6 7-18 mg/dl Creatinine 0.87 0.60-1.40 mg/dl Est Creatinine Clear Calc Drug Dose 81.3 ml/min Estimated GFR () 106.5 Estimated GFR (Non- 91.9 BUN/Creatinine Ratio 7.0 10-20 Random Glucose 109 70-99 mg/dl Calcium Level 8.7 8.5-10.1 mg/dl Phosphorus Level 2.5 2.5-4.9 mg/dl Magnesium Level 1.8 1.8-2.4 mg/dl Lactate Dehydrogenase 239 87-241 U/L Neutrophils % (Manual) 63.5 % Lymphocytes % (Manual) 15.7 % Monocytes % (Manual) 13.9 % Eosinophils % (Manual) 2.6 % Basophils % (Manual) 0.9 0-2 % Metamyelocytes % 1.7 % Myelocytes % 1.7 % Neutrophils # (Manual) 0.78 1.4-6.5 K/uL Total Absolute Neutrophils 0.78 1.4-6.5 K/uL Lymphocytes # (Manual) 0.19 1.2-3.4 K/uL Total Absolute Lymphocytes 0.19 1.2-3.4 K/uL Monocytes # (Manual) 0.17 0.11-0.59 K/uL Eosinophils # (Manual) 0.03 0-0.5 K/uL Basophils # (Manual) 0.01 0-0.2 K/uL Metamyelocytes # 0.02 0-0 K/uL Myelocytes # 0.02 0-0 K/uL Toxic Granulation 2+ Toxic Vacuolation 1+ Dohle Bodies 1+
[2018-03-10] MEDS: BOOST PLUS VANILLA PO SCH (17:23)
--- NOTE | 2018-03-10 17:24 | DIAGNOSTIC IMAGING REPORT ---
CT SCAN OF THE CHEST, ABDOMEN, AND PELVIS WITH IV CONTRAST CLINICAL HISTORY: Lymphoma. Neutropenic fever. COMPARISON STUDY: Chest CT dated 12/29/2017. Abdominal CT dated 12/31/2017. TECHNIQUE: Following the IV administration of 117 of Optiray 320, CT scan of the chest, abdomen, and pelvis was performed from the thoracic inlet to the proximal femora. Images are reviewed in the axial, sagittal, and coronal planes. IV contrast was administered without complication. Automated dose control exposure was utilized. A dose lowering technique was utilized adhering to the principles of ALARA. CT DOSE: 654.60 mGy.cm FINDINGS: CHEST: Thyroid: Imaged portions of the thyroid gland are normal in size and attenuation. Thoracic aorta: The thoracic aorta is normal in caliber and demonstrates standard 3-vessel arch anatomy. No dissection is seen. Pulmonary vasculature: The pulmonary trunk is normal in caliber. There are no filling defects identified in the central pulmonary vessels to indicate pulmonary embolus. Note that this examination was not protocoled for evaluation of the pulmonary arteries. Heart: The heart is normal in size and configuration, and without pericardial effusion. There are coronary artery calcifications. Lungs and pleural spaces: There is multifocal groundglass consolidation throughout both lungs upper lobe predominance, right greater than left. The appearance is typical for a nonspecific infectious/inflammatory pneumonitis. The trachea and central airways are clear. A 6 mm pleural-based nodule at the left lung base is again seen image #[id number]. Nodularity along the major fissures is also unchanged, as is a 3 mm lingular nodule seen image #155. Mediastinum: There is no mediastinal lymphadenopathy. Macarena: Clear. Axillae: There is no axillary lymphadenopathy. Bony thorax: No lytic or blastic lesions are identified. ABDOMEN AND PELVIS: Liver: The contrast-enhanced liver is normal in size, contour, and attenuation. There is no intrahepatic or ductal dilatation. The hepatic veins and portal veins are patent. Gallbladder: Unremarkable. Spleen: The spleen is enlarged, measuring 14.7 cm in length. Pancreas: Unremarkable. Adrenal glands: Unremarkable. Kidneys: The contrast enhanced kidneys are normal in size and without hydronephrosis. The kidneys enhance symmetrically. Bilateral renal calculi are again noted. The largest is on the right and measures 6 mm. Scattered renal cysts measure up to 1.5 cm. Additional subcentimeter cortical hypodensities also likely represent cysts but are too small for definitive characterization. Abdominal vasculature: The abdominal aorta is normal in course and caliber noting advanced atherosclerotic calcification. Bowel: There is no bowel obstruction. The appendix is normal as visualized. Peritoneum: There is no intraperitoneal free air or abdominal ascites. Lymphadenopathy: Upper abdominal, retroperitoneal, mesenteric, iliac chain, pelvic sidewall, and inguinal adenopathy has almost completely resolved from 12/31/2017. Pelvic viscera: The prostate gland is mildly enlarged measuring 4.8 cm in transverse diameter. The bladder and seminal vesicles are normal as imaged. There is trace free fluid in the pelvis. Skeletal structures: There is mild lumbosacral spondylosis. No lytic or blastic lesions are seen. IMPRESSION: 1. There is multifocal groundglass consolidation seen throughout both lungs with an upper lobe predominance. The appearance is consistent with a nonspecific infectious/inflammatory pneumonitis. Clinical correlation will be required. 2. Positive response to treatment. Lymphadenopathy in the chest, abdomen, and pelvis is most completely resolved when compared to 12/31/2017. No pathologically enlarged lymph nodes are identified on today's examination. 3. Splenomegaly. 4. Trace free fluid in the pelvis is nonspecific and likely on a reactive basis. 5. Bilateral nonobstructing renal calculi. 6. Indeterminant subcentimeter pulmonary nodules are unchanged from 12/29/2017. 7. Additional findings as above. Electronically signed by: Kong Aparicio M.D. 03/10/2018 5:22 PM Dictated Date/Time: 03/10/2018 5:09 PM
--- NOTE | 2018-03-10 19:57 | INFECT. DISEASE CONSULTATION ---
DATE OF CONSULTATION: 03/10/2018 HISTORY OF PRESENT ILLNESS: This is a 62-year-old gentleman who was admitted to the hospital after he had an episode of fever Wednesday that was associated with chills and sweats. 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 He is receiving chemo. His last dose was in early February. He did receive Neulasta, but states that this was before he finished his current course of chemo. He has been intermittently febrile since admission to the hospital with a T-max of 39 degrees last evening. His current temperature was 38.4 at 2:00 p.m., but he did receive Tylenol prior to my examination and states he is significantly better after receiving Tylenol. He denies any cough or shortness of breath. He denies any chest pain. He denies any abdominal pain. He states after chemo, he had significant oral ulcerations and has a poor appetite. Because of that, has had some weight loss, but he denies any abdominal pain, nausea, vomiting, or diarrhea. He denies any skin lesions or rashes. His neutrophil count was 660 on admission. It is improved to 780 today. He was placed on daptomycin and Zosyn. He is also on prophylactic acyclovir and fluconazole. Blood cultures were obtained and are pending at this time. The patient on my examination is very anxious to go home. He states that his daughter is a hospitalist at [facility] in [place] and she believes that he should be stable for discharge tomorrow on oral antibiotics. He appears to be tolerating his antibiotics well. He is concerned that he is not on broad spectrum antibiotics at this time. His oral ulcerations have an improved and he denies any oral pain on my examination. His remaining review of systems is unremarkable. 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 PAST SURGICAL HISTORY: Significant for dental surgery in the past. FAMILY HISTORY: Noncontributory. SOCIAL HISTORY: Negative for tobacco use or drug use. He drinks occasionally. He lives with his family. He denies any sick contacts. ALLERGIES: He has no known drug allergies. CURRENT MEDICATIONS: potassium, daptomycin, Xanax, Ativan, Zosyn, Lovenox, acyclovir, Celexa, Diflucan, atenolol, Protonix, Tylenol, and Zofran. PHYSICAL EXAMINATION: VITAL SIGNS: He currently has a temperature of 38.4, his T-max since admission is 39, pulse 96, respiratory rate 18, blood pressure 118/67, oxygen saturation is 95% on room air. GENERAL: He is awake, alert, and oriented x3. He is in no acute distress. HEENT: Mucous membranes are moist. Extraocular muscles are intact. HEART: Regular and tachycardic. LUNGS: Clear. ABDOMEN: Soft and nondistended. EXTREMTIES: There is no edema. SKIN: Without rash. LABORATORY STUDIES: CBC today, white blood cell count is 1.2, up from 1.0 on admission. Absolute neutrophil count of 780. Chemistry panel: Sodium 135, potassium 3.2, chloride 99, bicarbonate 27, BUN 6, creatinine 0.8, glucose is 109. LFTs are within normal limits. Urinalysis was unremarkable. Flu swab was negative. Blood cultures are pending. A fungal blood culture is pending as well. Chest x-ray in the Emergency Room showed lymphadenopathy, but no evidence of consolidation. ASSESSMENT AND PLAN: Neutropenic fever. He will remain on empiric broad spectrum antibiotics. He had several questions regarding an additional dose of Neulasta and I will refer to his oncology team to make further decisions regarding this. His ANC is improving. Cultures are pending and he will continue on antibiotics pending additional culture results.
[2018-03-10] MEDS ORDERED: BOOST VANILLA PO SCH (20:00)
[2018-03-10] MEDS: LORAZEPAM 1 MG TAB PO PRN (20:02)
[2018-03-11] MEDS: PIPERACILL/TAZOBAC IV 3.375 GM in D5W 100ML IV SCH ×3 (04:21→19:58)
[2018-03-11] MEDS: NSS + 20MEQ KCL 1000ML 1,000 ML IV SCH ×2 (04:22→17:05)
[2018-03-11 04:59] VITALS: BP 137/73; PULSE 95; TEMP 37.1; O2SAT 92
[2018-03-11] MEDS: DAPTOmycin IV 375 MG in SYRINGE 0 ML IV SCH (06:01)
[2018-03-11 06:43] LABS: CALCIUM 8.6 mg/dl (8.5-10.1); CREATININE 0.87 mg/dl (0.60-1.40); PHOSPHORUS 2.8 mg/dl (2.5-4.9); POTASSIUM 3.7 mmol/L (3.5-5.1)
[2018-03-11 06:50] LABS: HEMATOCRIT 26.1 % (42-52); HEMOGLOBIN 8.8 g/dL (14.0-18.0); MEAN CELL VOLUME 82.1 fL (80-100); MEAN CORPUSCULAR HEMOGLOBIN 27.7 pg (25-34); MEAN CORPUSCULAR HGB CONC 33.7 g/dl (32-36); NUCLEATED RED BLOOD CELL ABS 0.04 K/uL (0-0); PLATELET COUNT 199 K/uL (130-400); RED CELL DISTRIBUTION WIDTH CV 19.9 % (11.5-14.5); RED CELL DISTRIBUTION WIDTH SD 59.3 fL (36.4-46.3); WHITE BLOOD COUNT 1.24 K/uL (4.8-10.8)
[2018-03-11 06:57] VITALS: BMI 23.3
[2018-03-11 07:39] VITALS: BP 143/78; PULSE 101; TEMP 37.5; O2SAT 94
[2018-03-11] MEDS: PANTOprazole SOD 40 MG TAB PO SCH (08:07)
[2018-03-11] MEDS: CITALOPRAM 20 MG TAB PO SCH (08:07)
[2018-03-11] MEDS: BOOST PLUS VANILLA PO SCH ×3 (08:07→17:04)
[2018-03-11] MEDS: FLUCONAZOLE 100 MG TAB PO SCH (08:08)
[2018-03-11] MEDS: ACYCLOVIR 400 MG TAB PO SCH ×2 (08:08→19:59)
[2018-03-11] MEDS: ENOXAPARIN 40 MG/0.4 ML SYR SQ SCH ×2 (11:00→12:51)
--- NOTE | 2018-03-11 11:06 | Progress Note ---
Subjective Date of Service: March 11, 2018. Subjective Pt evaluation today including: conversation w/ patient, physical exam, chart review, lab review pt seen in followup, oob to chair on my exam. feeling much better. had temp 38.1 1130 last night, had tylenol. no tylenol since then and has remained afebrile. ct chest abd pelvis reviewed, some findings in upper lobes, ? pneumonitis, but has no cough, sob, wheeze, no barbour. Blood cultures remain neagtive, counts remain low, ANC 690 today. Remain above 500. Asking to go home on po abx. No abd pain, no n/v/d. oral pain resolved. has plans to continue followup with heme onc post d/c. was to have port placed but states this is on hold for now. all remaining ros reviewed and are negative. Problem List Medical Problems: (1) Chest mass Status: Acute (2) Chills Status: Acute (3) Fever Status: Acute (4) Septic shock Status: Acute Objective Vital Signs Date Time Temp Pulse Resp B/P (MAP) Pulse Ox O2 Delivery O2 Flow Rate FiO2 03/11/18 07:39 37.5 101 20 143/78 (99) 94 Room Air 03/11/18 04:59 37.1 95 20 137/73 (94) 92 Room Air 03/11/18 00:00 Room Air 03/10/18 23:26 38.1 95 16 142/74 (96) 91 Room Air 03/10/18 20:31 37.2 96 20 110/70 (83) 92 Room Air 03/10/18 20:10 Room Air 03/10/18 16:00 Room Air 03/10/18 15:54 37.2 84 20 112/64 (80) 93 Room Air 03/10/18 14:45 37.6 03/10/18 14:05 38.4 03/10/18 12:56 38.6 03/10/18 11:36 38.0 96 18 118/67 (84) 95 Room Air Physical Exam General Appearance: WD/WN, no apparent distress Eyes: normal inspection, EOMI Neck: supple Respiratory/Chest: lungs clear, normal breath sounds, no respiratory distress Cardiovascular: regular rate, rhythm, no edema Abdomen: soft Extremities: non-tender, no pedal edema Neurologic/Psychiatric: alert, oriented x 3 Skin: normal color Laboratory Results Item Value Date Time Blood Culture - Preliminary Resulted 03/09/18 0625 Blood NO GROWTH TO DATE. Blood Culture - Preliminary Resulted 03/09/18 0630 Blood NO GROWTH TO DATE. Last 24 Hours Test 03/11/18 05:52 White Blood Count 1.24 K/uL Red Blood Count 3.18 M/uL Hemoglobin 8.8 g/dL Hematocrit 26.1 % Mean Corpuscular Volume 82.1 fL Mean Corpuscular Hemoglobin 27.7 pg Mean Corpuscular Hemoglobin Concent 33.7 g/dl Platelet Count 199 K/uL Mean Platelet Volume 9.0 fL RDW Standard Deviation 59.3 fL RDW Coefficient of Variation 19.9 % Nucleated RBC Absolute Count (auto) 0.04 K/uL Neutrophils % (Manual) 56.0 % Lymphocytes % (Manual) 23.7 % Monocytes % (Manual) 12.3 % Eosinophils % (Manual) 2.6 % Basophils % (Manual) 1.8 % Metamyelocytes % 1.8 % Myelocytes % 1.8 % Nucleated Red Blood Cells % 2.9 % Neutrophils # (Manual) 0.69 K/uL Total Absolute Neutrophils 0.69 K/uL Lymphocytes # (Manual) 0.29 K/uL Total Absolute Lymphocytes 0.29 K/uL Monocytes # (Manual) 0.15 K/uL Eosinophils # (Manual) 0.03 K/uL Basophils # (Manual) 0.02 K/uL Metamyelocytes # 0.02 K/uL Myelocytes # 0.02 K/uL Toxic Granulation 1+ Polychromasia 1+ Anisocytosis PRESENT Sodium Level 137 mmol/L Potassium Level 3.7 mmol/L Chloride Level 102 mmol/L Carbon Dioxide Level 28 mmol/L Anion Gap 7.0 mmol/L Blood Urea Nitrogen 6 mg/dl Creatinine 0.87 mg/dl Est Creatinine Clear Calc Drug Dose 81.3 ml/min Estimated GFR () 106.5 Estimated GFR (Non- 91.9 BUN/Creatinine Ratio 6.5 Random Glucose 99 mg/dl Calcium Level 8.6 mg/dl Phosphorus Level 2.8 mg/dl Magnesium Level 1.7 mg/dl Assessment and Plan (1) Neutropenic fever Assessment & Plan: Fever resolving, afebrile 12 hours without antipyretic. cultures remain negative and ANC above 500. Defer g csf to heme onc. If to be d/ c would suggest augmentin 875mg po bid x 7 days.
[2018-03-11 12:25] VITALS: BP 123/65; PULSE 97; TEMP 36; O2SAT 91
[2018-03-11] MEDS: FILGRASTIM 300 MCG/ML 1 ML VIAL SQ SCH (15:16)
[2018-03-11 15:37] VITALS: TEMP 37.8
--- NOTE | 2018-03-11 17:35 | Hematology/Oncology Prog Note ---
Hematology/Onc Progress Note Date of Service March 11, 2018. Subjective Patient was rounded on at bedside. He states he is unsure of the last time he had fever. He has not had sweats. He denies cough or dyspnea. He ate his breakfast. He denies bowel issues. Vital Signs Vital Signs Past 12 Hours Date Time Temp Pulse Resp B/P (MAP) Pulse Ox O2 Delivery O2 Flow Rate FiO2 03/11/18 15:37 37.8 03/11/18 12:25 36.0 97 18 123/65 (84) 91 Room Air 03/11/18 08:00 Room Air 03/11/18 07:39 37.5 101 20 143/78 (99) 94 Room Air Physical Exam Constitutional: Level of Distress: NAD, chronically ill ENMT: hearing grossly normal Lungs: Auscuitation: breath sounds normal, no wheezing, no rales/crackles Cardiovascular: Heart Auscultation: RRR Abdomen: Inspection & Palpation: soft, no tenderness, guarding & rebound Laboratory 03/09/18 06:30 Red Blood Count 3.08, Mean Corpuscular Volume 83.8, Mean Corpuscular Hemoglobin 28.2, Mean Corpuscular Hemoglobin Concent 33.7, Mean Platelet Volume 10.0, Neutrophils (%) (Auto) 62.3, Lymphocytes (%) (Auto) 13.2, Monocytes (%) (Auto) 20.8, Eosinophils (%) (Auto) 0.9, Basophils (%) (Auto) 0.9, Neutrophils # (Auto ) 0.66, Lymphocytes # (Auto) 0.14, Monocytes # (Auto) 0.22, Eosinophils # (Auto ) 0.01, Basophils # (Auto) 0.01 03/10/18 06:17 03/10/18 09:17 Red Blood Count 3.42, Mean Corpuscular Volume 82.2, Mean Corpuscular Hemoglobin 28.1, Mean Corpuscular Hemoglobin Concent 34.2, Mean Platelet Volume 9.8 03/11/18 05:52 Red Blood Count 3.18, Mean Corpuscular Volume 82.1, Mean Corpuscular Hemoglobin 27.7, Mean Corpuscular Hemoglobin Concent 33.7, Mean Platelet Volume 9.0 03/09/18 06:30 03/10/18 06:17 03/11/18 05:52 Test 03/09/18 06:26 03/09/18 06:30 03/09/18 06:35 03/09/18 07:30 Bedside Lactic Acid Venous 3.06 mmol/L (0.90-1.70) White Blood Count 1.06 K/uL (4.8-10.8) Red Blood Count 3.08 M/uL (4.7-6.1) Hemoglobin 8.7 g/dL (14.0-18.0) Hematocrit 25.8 % (42-52) Mean Corpuscular Volume 83.8 fL (80-100) Mean Corpuscular Hemoglobin 28.2 pg (25-34) Mean Corpuscular Hemoglobin Concent 33.7 g/dl (32-36) Platelet Count 124 K/uL (130-400) Mean Platelet Volume 10.0 fL (7.4-10.4) Neutrophils (%) (Auto) 62.3 % Lymphocytes (%) (Auto) 13.2 % Monocytes (%) (Auto) 20.8 % Eosinophils (%) (Auto) 0.9 % Basophils (%) (Auto) 0.9 % Neutrophils # (Auto) 0.66 K/uL (1.4-6.5) Lymphocytes # (Auto) 0.14 K/uL (1.2-3.4) Monocytes # (Auto) 0.22 K/uL (0.11-0.59) Eosinophils # (Auto) 0.01 K/uL (0-0.5) Basophils # (Auto) 0.01 K/uL (0-0.2) RDW Standard Deviation 57.9 fL (36.4-46.3) RDW Coefficient of Variation 19.2 % (11.5-14.5) Immature Granulocyte % (Auto) 1.9 % Immature Granulocyte # (Auto) 0.02 K/uL (0.00-0.02) Nucleated RBC Absolute Count (auto) 0.02 K/uL (0-0) Nucleated Red Blood Cells % 2.1 % Toxic Granulation 2+ Dohle Bodies 1+ Giant Platelets 1+ Prothrombin Time 11.8 SECONDS (9.0-12.0) Prothromb Time International Ratio 1.1 (0.9-1.1) Anion Gap 9.0 mmol/L (3-11) Est Creatinine Clear Calc Drug Dose 60.9 ml/min Estimated GFR () 83.3 Estimated GFR (Non- 71.9 BUN/Creatinine Ratio 8.1 (10-20) Calcium Level 8.9 mg/dl (8.5-10.1) Magnesium Level 1.3 mg/dl (1.8-2.4) Total Bilirubin 0.5 mg/dl (0.2-1) Direct Bilirubin 0.2 mg/dl (0-0.2) Aspartate Amino Transf (AST/SGOT) 37 U/L (15-37) Alanine Aminotransferase (ALT/SGPT) 57 U/L (12-78) Alkaline Phosphatase 129 U/L (45-117) Total Creatine Kinase 22 U/L (39-308) Creatine Kinase MB < 0.5 ng/ml (0.5-3.6) Creatine Kinase MB Ratio (0-3.0) Troponin I 0.033 ng/ml (0-0.045) Total Protein 7.2 gm/dl (6.4-8.2) Albumin 2.7 gm/dl (3.4-5.0) Influenza Type A (RT-PCR) Neg for Influ A (NEG) Influenza Type B (RT-PCR) Neg for Influ B (NEG) Urine Color YELLOW Urine Appearance CLEAR (CLEAR) Urine pH 7.5 (4.5-7.5) Urine Specific Geraldine 1.015 (1.000-1.030) Urine Protein 1+ (NEG) Urine Glucose (UA) NEG (NEG) Urine Ketones NEG (NEG) Urine Occult Blood NEG (NEG) Urine Nitrite NEG (NEG) Urine Bilirubin NEG (NEG) Urine Urobilinogen NEG (NEG) Urine Leukocyte Esterase NEG (NEG) Urine WBC (Auto) 1-5 /hpf (0-5) Urine RBC (Auto) 0-4 /hpf (0-4) Urine Hyaline Casts (Auto) 1-5 /lpf (0-5) Urine Epithelial Cells (Auto) 20-30 /lpf (0-5) Urine Bacteria (Auto) NEG (NEG) Test 03/10/18 06:17 03/10/18 09:17 03/11/18 05:52 Red Blood Count 3.00 M/uL (4.7-6.1) 3.42 M/uL (4.7-6.1) 3.18 M/uL (4.7-6.1) Mean Corpuscular Volume 81.7 fL (80-100) 82.2 fL (80-100) 82.1 fL (80-100) Mean Corpuscular Hemoglobin 28.0 pg (25-34) 28.1 pg (25-34) 27.7 pg (25-34) Mean Corpuscular Hemoglobin Concent 34.3 g/dl (32-36) 34.2 g/dl (32-36) 33.7 g/dl (32-36) RDW Standard Deviation 59.9 fL (36.4-46.3) 59.9 fL (36.4-46.3) 59.3 fL (36.4-46.3) RDW Coefficient of Variation 20.3 % (11.5-14.5) 20.2 % (11.5-14.5) 19.9 % (11.5-14.5) Mean Platelet Volume 9.3 fL (7.4-10.4) 9.8 fL (7.4-10.4) 9.0 fL (7.4-10.4) Nucleated RBC Absolute Count (auto) 0.03 K/uL (0-0) 0.03 K/uL (0-0) 0.04 K/uL (0-0) Nucleated Red Blood Cells % 3.1 % 2.6 % 2.9 % Anion Gap 8.0 mmol/L (3-11) 7.0 mmol/L (3-11) Est Creatinine Clear Calc Drug Dose 81.3 ml/min 81.3 ml/min Estimated GFR () 106.5 106.5 Estimated GFR (Non- 91.9 91.9 BUN/Creatinine Ratio 7.0 (10-20) 6.5 (10-20) Calcium Level 8.7 mg/dl (8.5-10.1) 8.6 mg/dl (8.5-10.1) Phosphorus Level 2.5 mg/dl (2.5-4.9) 2.8 mg/dl (2.5-4.9) Magnesium Level 1.8 mg/dl (1.8-2.4) 1.7 mg/dl (1.8-2.4) Lactate Dehydrogenase 239 U/L (87-241) White Blood Count 1.23 K/uL (4.8-10.8) 1.24 K/uL (4.8-10.8) Hemoglobin 9.6 g/dL (14.0-18.0) 8.8 g/dL (14.0-18.0) Hematocrit 28.1 % (42-52) 26.1 % (42-52) Platelet Count 180 K/uL (130-400) 199 K/uL (130-400) Neutrophils % (Manual) 63.5 % 56.0 % Lymphocytes % (Manual) 15.7 % 23.7 % Monocytes % (Manual) 13.9 % 12.3 % Eosinophils % (Manual) 2.6 % 2.6 % Basophils % (Manual) 0.9 % (0-2) 1.8 % (0-2) Metamyelocytes % 1.7 % 1.8 % Myelocytes % 1.7 % 1.8 % Neutrophils # (Manual) 0.78 K/uL (1.4-6.5) 0.69 K/uL (1.4-6.5) Total Absolute Neutrophils 0.78 K/uL (1.4-6.5) 0.69 K/uL (1.4-6.5) Lymphocytes # (Manual) 0.19 K/uL (1.2-3.4) 0.29 K/uL (1.2-3.4) Total Absolute Lymphocytes 0.19 K/uL (1.2-3.4) 0.29 K/uL (1.2-3.4) Monocytes # (Manual) 0.17 K/uL (0.11-0.59) 0.15 K/uL (0.11-0.59) Eosinophils # (Manual) 0.03 K/uL (0-0.5) 0.03 K/uL (0-0.5) Basophils # (Manual) 0.01 K/uL (0-0.2) 0.02 K/uL (0-0.2) Metamyelocytes # 0.02 K/uL (0-0) 0.02 K/uL (0-0) Myelocytes # 0.02 K/uL (0-0) 0.02 K/uL (0-0) Toxic Granulation 2+ 1+ Toxic Vacuolation 1+ Dohle Bodies 1+ Polychromasia 1+ Anisocytosis PRESENT Radiology 03/10/18 Chest/abd/pelvis CT: CHEST: Thyroid: Imaged portions of the thyroid gland are normal in size and attenuation. Thoracic aorta: The thoracic aorta is normal in caliber and demonstrates standard 3-vessel arch anatomy. No dissection is seen. Pulmonary vasculature: The pulmonary trunk is normal in caliber. There are no filling defects identified in the central pulmonary vessels to indicate pulmonary embolus. Note that this examination was not protocoled for evaluation of the pulmonary arteries. Heart: The heart is normal in size and configuration, and without pericardial effusion. There are coronary artery calcifications. Lungs and pleural spaces: There is multifocal groundglass consolidation throughout both lungs upper lobe predominance, right greater than left. The appearance is typical for a nonspecific infectious/inflammatory pneumonitis. The trachea and central airways are clear. A 6 mm pleural-based nodule at the left lung base is again seen image #[id number]. Nodularity along the major fissures is also unchanged, as is a 3 mm lingular nodule seen image #155. Mediastinum: There is no mediastinal lymphadenopathy. Macarena: Clear. Axillae: There is no axillary lymphadenopathy. Bony thorax: No lytic or blastic lesions are identified. ABDOMEN AND PELVIS: Liver: The contrast-enhanced liver is normal in size, contour, and attenuation. There is no intrahepatic or ductal dilatation. The hepatic veins and portal veins are patent. Gallbladder: Unremarkable. Spleen: The spleen is enlarged, measuring 14.7 cm in length. Pancreas: Unremarkable. Adrenal glands: Unremarkable. Kidneys: The contrast enhanced kidneys are normal in size and without hydronephrosis. The kidneys enhance symmetrically. Bilateral renal calculi are again noted. The largest is on the right and measures 6 mm. Scattered renal cysts measure up to 1.5 cm. Additional subcentimeter cortical hypodensities also likely represent cysts but are too small for definitive characterization. Abdominal vasculature: The abdominal aorta is normal in course and caliber noting advanced atherosclerotic calcification. Bowel: There is no bowel obstruction. The appendix is normal as visualized. Peritoneum: There is no intraperitoneal free air or abdominal ascites. Lymphadenopathy: Upper abdominal, retroperitoneal, mesenteric, iliac chain, pelvic sidewall, and inguinal adenopathy has almost completely resolved from 12/31/2017. Pelvic viscera: The prostate gland is mildly enlarged measuring 4.8 cm in transverse diameter. The bladder and seminal vesicles are normal as imaged. There is trace free fluid in the pelvis. Skeletal structures: There is mild lumbosacral spondylosis. No lytic or blastic lesions are seen. Assessment & Plan 1. Febrile neutropenia 2. 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 Alamo discussed with Dr. Mclean and she was agreeable to proceed with Neupogen , so has been ordered * Patient's last fever was around 2300 yesterday * Continue neutropenic precautions * Monitor CBCD daily Dr. Alamo is attending senior java web developer. I performed history and physical examination of the patient. ~I have discussed the patient's case, impression and plan with Julia Alfonso PA-C. Her note reflects my findings and plan. I reviewed his recent the blood workup, also spoke with the hospitalist about his case, because of low ANC, decided to proceed with Neupogen and will see how he does. I am expecting improvement of the blood count in a short period of time. Will continue with the broad-spectrum antibiotic, will follow-up blood and fungal culture. Because of his rebellious, we may have to hold intrathecal methotrexate which we had planned every weekly in his case at this time. Also spoke with the patient's daughter on the phone and reviewed about his case, once he recovers well, during the 3rd cycle, I am planning to discontinue Etoposide chemotherapy. Rodrigo Alamo MD Hem/Onc
[2018-03-11] MEDS: ACETAMINOPHEN 325 MG TAB PO PRN ×2 (18:02→23:37)
[2018-03-11] MEDS ORDERED: OXYCODONE HCL IR 5 MG TAB (IMMEDIATE RELEASE) PO STA (18:10)
[2018-03-11] MEDS ORDERED: OXYCODONE HCL IR 5 MG TAB (IMMEDIATE RELEASE) ONE (18:13)
[2018-03-11] MEDS ORDERED: OXYCODONE HCL IR 5 MG TAB (IMMEDIATE RELEASE) PO PRN (18:15)
[2018-03-11 19:25] VITALS: BP 130/73; PULSE 89; TEMP 37.2; O2SAT 92
[2018-03-11] MEDS: LORAZEPAM 1 MG TAB PO PRN (20:02)
[2018-03-11 23:20] VITALS: BP 160/81; PULSE 91; TEMP 36.3; O2SAT 92
[2018-03-12 04:15] VITALS: BP 142/75; PULSE 91; TEMP 37.2; O2SAT 90
[2018-03-12] MEDS: PIPERACILL/TAZOBAC IV 3.375 GM in D5W 100ML IV SCH ×2 (04:19→12:35)
[2018-03-12] MEDS: DAPTOmycin IV 375 MG in SYRINGE 0 ML IV SCH (06:14)
[2018-03-12] MEDS: NSS + 20MEQ KCL 1000ML 1,000 ML IV SCH (06:15)
[2018-03-12 06:29] VITALS: Ht 170.2 cm; Wt 69.2 kg
[2018-03-12 07:56] VITALS: BP 154/84; PULSE 101; TEMP 36.6; O2SAT 95
[2018-03-12] MEDS: CITALOPRAM 20 MG TAB PO SCH (07:59)
[2018-03-12] MEDS: PANTOprazole SOD 40 MG TAB PO SCH (07:59)
[2018-03-12] MEDS: ACYCLOVIR 400 MG TAB PO SCH (07:59)
[2018-03-12] MEDS: FLUCONAZOLE 100 MG TAB PO SCH (08:00)
[2018-03-12] MEDS: FILGRASTIM 300 MCG/ML 1 ML VIAL SQ SCH (08:05)
[2018-03-12] MEDS: BOOST PLUS VANILLA PO SCH ×2 (08:05→12:36)
[2018-03-12 08:31] LABS: HEMATOCRIT 27.1 % (42-52); MEAN CELL VOLUME 82.6 fL (80-100); MEAN CORPUSCULAR HEMOGLOBIN 27.4 pg (25-34); MEAN CORPUSCULAR HGB CONC 33.2 g/dl (32-36); MEAN PLATELET VOLUME 9.9 fL (7.4-10.4); NUCLEATED RED BLOOD CELL ABS 0.05 K/uL (0-0); PLATELET COUNT 292 K/uL (130-400); RED CELL DISTRIBUTION WIDTH CV 20.3 % (11.5-14.5); RED CELL DISTRIBUTION WIDTH SD 60.5 fL (36.4-46.3); WHITE BLOOD COUNT 7.62 K/uL (4.8-10.8)
[2018-03-12 08:43] VITALS: BP 146/77; PULSE 102; TEMP 37.2; O2SAT 93
[2018-03-12 08:53] LABS: BASO % 0.3 %; BASO ABS # 0.02 K/uL (0-0.2); EOS % 0.3 %; EOS ABS # 0.02 K/uL (0-0.5); IG# 0.14 K/uL (0.00-0.02); LYMPH % 7.2 %; LYMPH ABS # 0.55 K/uL (1.2-3.4); MONO % 8.9 %; MONO ABS # 0.68 K/uL (0.11-0.59); NEUT % 81.5 %; NEUT ABS # 6.21 K/uL (1.4-6.5)
[2018-03-12 09:00] LABS: CALCIUM 8.4 mg/dl (8.5-10.1); CREATININE 0.84 mg/dl (0.60-1.40); POTASSIUM 3.5 mmol/L (3.5-5.1)
[2018-03-12 11:26] VITALS: BP 135/75; PULSE 94; TEMP 36.6; O2SAT 93
[2018-03-12] MEDS: MAGNESIUM SULFATE 1GM / D5W 100 ML IV SCH ×2 (11:33→12:35)
[2018-03-12] MEDS: ENOXAPARIN 40 MG/0.4 ML SYR SQ SCH (11:34)
--- NOTE | 2018-03-12 12:19 | Progress Note ---
Internal Med Progress Note Date of Service: February 22, 2018. Provider Documentation: This is the bill for 03/11/18 SUBJECTIVE: The patient was seen and examined in medical floor Admitted yesterday with sepsis with the neutropenia Has been getting chemo for angioimmunoblastic lymphoma Has had fever this morning without any other symptoms 03/11 Clinically much better Has had mild fever last night OBJECTIVE: Vital Signs-as noted below Exam: General-no distress at rest Eyes-normal ENT-normal Neck-supple Lungs-decreased breath sounds right side mostly but no crackles or wheezing Heart-regular Abdomen-benign, soft, nontender, no organomegaly Extremities-trace edema bilaterally Neuro-alert, awake and oriented 3 Generally weak No focal neuro deficit Lab data as noted below. ASSESSMENT & PLAN: SEPSIS due to unknown cause at PO[facility] NEUTROPENIC FEVER 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 Blood and urine culture have been taken He was started with IV daptomycin and Zosyn, will continue those We will hold his Levaquin for now he has discussed with Continue with prophylactic fluconazole and acyclovir Monitor CBC-improving Case discussed with oncologist We will get CT of the abdomen and pelvis and CT of the chest with contrast to rule out any focus of infection We will get ID consult-appreciate input Recommended Augmentin for 7 days Neupogen started ANGIOIMMUNOBLASTIC LYMPHOMA Has been getting chemotherapy with CHOP and etoposide Also received intrathecal chemotherapy Management will be as per oncologist HYPERTENSION Continue with atenolol BP is a stable HYPERLIPIDEMIA Continue statin GERD Continue PPI GERD Continue Xanax CODE STATUS: Full Case discussed with the daughter who is a physician at [facility] Vital Signs: Date Time Temp Pulse Resp B/P (MAP) Pulse Ox O2 Delivery O2 Flow Rate FiO2 03/12/18 11:26 36.6 94 18 135/75 (95) 93 03/12/18 08:43 37.2 102 18 146/77 (100) 93 03/12/18 08:00 Room Air 03/12/18 07:56 36.6 101 18 154/84 (107) 95 03/12/18 04:15 37.2 91 20 142/75 (97) 90 Room Air 03/12/18 00:00 Room Air 03/11/18 23:20 36.3 91 20 160/81 (107) 92 Room Air 03/11/18 20:00 Room Air 03/11/18 19:25 37.2 89 18 130/73 (92) 92 Room Air 03/11/18 16:00 Room Air 03/11/18 15:37 37.8 03/11/18 12:25 36.0 97 18 123/65 (84) 91 Room Air Lab Results: Results Past 24 Hours Test 03/12/18 07:58 Range/Units White Blood Count 7.62 4.8-10.8 K/uL Red Blood Count 3.28 4.7-6.1 M/uL Hemoglobin 9.0 14.0-18.0 g/dL Hematocrit 27.1 42-52 % Mean Corpuscular Volume 82.6 80-100 fL Mean Corpuscular Hemoglobin 27.4 25-34 pg Mean Corpuscular Hemoglobin Concent 33.2 32-36 g/dl Platelet Count 292 130-400 K/uL Mean Platelet Volume 9.9 7.4-10.4 fL Neutrophils (%) (Auto) 81.5 % Lymphocytes (%) (Auto) 7.2 % Monocytes (%) (Auto) 8.9 % Eosinophils (%) (Auto) 0.3 % Basophils (%) (Auto) 0.3 % Neutrophils # (Auto) 6.21 1.4-6.5 K/uL Lymphocytes # (Auto) 0.55 1.2-3.4 K/uL Monocytes # (Auto) 0.68 0.11-0.59 K/uL Eosinophils # (Auto) 0.02 0-0.5 K/uL Basophils # (Auto) 0.02 0-0.2 K/uL RDW Standard Deviation 60.5 36.4-46.3 fL RDW Coefficient of Variation 20.3 11.5-14.5 % Immature Granulocyte % (Auto) 1.8 % Immature Granulocyte # (Auto) 0.14 0.00-0.02 K/uL Nucleated RBC Absolute Count (auto) 0.05 0-0 K/uL Nucleated Red Blood Cells % 0.7 % Toxic Granulation 3+ Polychromasia 1+ Anisocytosis PRESENT Sodium Level 136 136-145 mmol/L Potassium Level 3.5 3.5-5.1 mmol/L Chloride Level 101 98-107 mmol/L Carbon Dioxide Level 26 21-32 mmol/L Anion Gap 9.0 3-11 mmol/L Blood Urea Nitrogen 6 7-18 mg/dl Creatinine 0.84 0.60-1.40 mg/dl Est Creatinine Clear Calc Drug Dose 84.2 ml/min Estimated GFR () 108.0 Estimated GFR (Non- 93.2 BUN/Creatinine Ratio 6.8 10-20 Random Glucose 92 70-99 mg/dl Calcium Level 8.4 8.5-10.1 mg/dl Phosphorus Level 2.0 2.5-4.9 mg/dl Magnesium Level 1.4 1.8-2.4 mg/dl
--- NOTE | 2018-03-12 12:22 | Progress Note ---
Internal Med Progress Note Date of Service: March 12, 2018. Provider Documentation: SUBJECTIVE: The patient was seen and examined in medical floor Admitted yesterday with sepsis with the neutropenia Has been getting chemo for angioimmunoblastic lymphoma Has had fever this morning without any other symptoms 03/11 Clinically much better Has had mild fever last night 03/12 Almost normal Denies any symptoms OBJECTIVE: Vital Signs-as noted below Exam: General-no distress at rest Eyes-normal ENT-normal Neck-supple Lungs-Clear to ausucltate bilaterally Heart-regular Abdomen-benign, soft, nontender, no organomegaly Extremities-trace edema bilaterally Neuro-alert, awake and oriented 3 Generally weak No focal neuro deficit Lab data as noted below. CT of the Abd and Pelvis:: 1. There is multifocal groundglass consolidation seen throughout both lungs with an upper lobe predominance. The appearance is consistent with a nonspecific infectious/inflammatory pneumonitis. Clinical correlation will be required. 2. Positive response to treatment. Lymphadenopathy in the chest, abdomen, and pelvis is most completely resolved when compared to 12/31/2017. No pathologically enlarged lymph nodes are identified on today's examination. 3. Splenomegaly. 4. Trace free fluid in the pelvis is nonspecific and likely on a reactive basis. 5. Bilateral nonobstructing renal calculi. 6. Indeterminant subcentimeter pulmonary nodules are unchanged from 12/29/2017. 7. Additional findings as above. CT of the Chest:: 1. There is multifocal groundglass consolidation seen throughout both lungs with an upper lobe predominance. The appearance is consistent with a nonspecific infectious/inflammatory pneumonitis. Clinical correlation will be required. 2. Positive response to treatment. Lymphadenopathy in the chest, abdomen, and pelvis is most completely resolved when compared to 12/31/2017. No pathologically enlarged lymph nodes are identified on today's examination. 3. Splenomegaly. 4. Trace free fluid in the pelvis is nonspecific and likely on a reactive basis. 5. Bilateral nonobstructing renal calculi. 6. Indeterminant subcentimeter pulmonary nodules are unchanged from 12/29/2017. 7. Additional findings as above. ASSESSMENT & PLAN: Pneumonitis SEPSIS ,NEUTROPENIC FEVER 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 Blood and urine culture have been taken He was started with IV daptomycin and Zosyn, will continue those We will hold his Levaquin for now he has discussed with Continue with prophylactic fluconazole and acyclovir Monitor CBC-improving Case discussed with oncologist We will get CT of the abdomen and pelvis and CT of the chest with contrast to rule out any focus of infection-noted We will get ID consult-appreciate input Recommended Augmentin for 7 days Neupogen received for 2 doses-No more for now Discussed with the Oncologist ANGIOIMMUNOBLASTIC LYMPHOMA Has been getting chemotherapy with CHOP and etoposide Also received intrathecal chemotherapy Management will be as per oncologist HYPERTENSION Continue with atenolol BP is a stable HYPERLIPIDEMIA Continue statin GERD Continue PPI GERD Continue Xanax CODE STATUS: Full Case discussed with the daughter who is a physician at [facility] Discharge today Vital Signs: Date Time Temp Pulse Resp B/P (MAP) Pulse Ox O2 Delivery O2 Flow Rate FiO2 03/12/18 11:26 36.6 94 18 135/75 (95) 93 03/12/18 08:43 37.2 102 18 146/77 (100) 93 03/12/18 08:00 Room Air 03/12/18 07:56 36.6 101 18 154/84 (107) 95 03/12/18 04:15 37.2 91 20 142/75 (97) 90 Room Air 03/12/18 00:00 Room Air 03/11/18 23:20 36.3 91 20 160/81 (107) 92 Room Air 03/11/18 20:00 Room Air 03/11/18 19:25 37.2 89 18 130/73 (92) 92 Room Air 03/11/18 16:00 Room Air 03/11/18 15:37 37.8 03/11/18 12:25 36.0 97 18 123/65 (84) 91 Room Air Lab Results: Results Past 24 Hours Test 03/12/18 07:58 Range/Units White Blood Count 7.62 4.8-10.8 K/uL Red Blood Count 3.28 4.7-6.1 M/uL Hemoglobin 9.0 14.0-18.0 g/dL Hematocrit 27.1 42-52 % Mean Corpuscular Volume 82.6 80-100 fL Mean Corpuscular Hemoglobin 27.4 25-34 pg Mean Corpuscular Hemoglobin Concent 33.2 32-36 g/dl Platelet Count 292 130-400 K/uL Mean Platelet Volume 9.9 7.4-10.4 fL Neutrophils (%) (Auto) 81.5 % Lymphocytes (%) (Auto) 7.2 % Monocytes (%) (Auto) 8.9 % Eosinophils (%) (Auto) 0.3 % Basophils (%) (Auto) 0.3 % Neutrophils # (Auto) 6.21 1.4-6.5 K/uL Lymphocytes # (Auto) 0.55 1.2-3.4 K/uL Monocytes # (Auto) 0.68 0.11-0.59 K/uL Eosinophils # (Auto) 0.02 0-0.5 K/uL Basophils # (Auto) 0.02 0-0.2 K/uL RDW Standard Deviation 60.5 36.4-46.3 fL RDW Coefficient of Variation 20.3 11.5-14.5 % Immature Granulocyte % (Auto) 1.8 % Immature Granulocyte # (Auto) 0.14 0.00-0.02 K/uL Nucleated RBC Absolute Count (auto) 0.05 0-0 K/uL Nucleated Red Blood Cells % 0.7 % Toxic Granulation 3+ Polychromasia 1+ Anisocytosis PRESENT Sodium Level 136 136-145 mmol/L Potassium Level 3.5 3.5-5.1 mmol/L Chloride Level 101 98-107 mmol/L Carbon Dioxide Level 26 21-32 mmol/L Anion Gap 9.0 3-11 mmol/L Blood Urea Nitrogen 6 7-18 mg/dl Creatinine 0.84 0.60-1.40 mg/dl Est Creatinine Clear Calc Drug Dose 84.2 ml/min Estimated GFR () 108.0 Estimated GFR (Non- 93.2 BUN/Creatinine Ratio 6.8 10-20 Random Glucose 92 70-99 mg/dl Calcium Level 8.4 8.5-10.1 mg/dl Phosphorus Level 2.0 2.5-4.9 mg/dl Magnesium Level 1.4 1.8-2.4 mg/dl
[2018-03-12] MEDS ORDERED: AMOX875T PO (12:28)
[2018-03-12] MEDS ORDERED: LCTX PO (12:28)
--- NOTE | 2018-03-12 12:31 | Discharge Instructions ---
Discharge Instructions Date of Service March 12, 2018. Admission Reason for Admission: Neutropenic Fever Discharge Discharge Diagnosis / Problem: Neutropenic Fever,Pneumonitis,Lymphoma Discharge Goals Goal(s): Prevent Disease Progression Activity Recommendations Activity Limitations: resume your previous activity . Instructions / Follow-Up Instructions / Follow-Up Please make an appointment with your PCP in 1week Keep appointment with your Oncologist. Current Hospital Diet Patient's current hospital diet: Regular Diet Discharge Diet Recommended Diet: Regular Diet Pending Studies Studies pending at discharge: no Medical Emergencies . Who to Call and When: Medical Emergencies: If at any time you feel your situation is an emergency, please call 911 immediately. . Non-Emergent Contact Non-Emergency issues call your: Primary Care Provider . Past History Medical & Surgical History: (1) Angioimmunoblastic lymphoma (2) Neutropenic fever (3) GERD (gastroesophageal reflux disease) (4) History of paroxysmal supraventricular tachycardia (5) Hypertension . "Provider Documentation" section prepared by Alvin Byrne. .
[2018-03-12] MEDS: ACETAMINOPHEN 325 MG TAB PO PRN (13:25)
[2018-03-12 13:29] VITALS: BP 135/75; PULSE 94; TEMP 36.6; O2SAT 93
--- NOTE | 2018-03-12 18:11 | Discharge Summary ---
Discharge Summary Date of Service March 12, 2018. Discharge Summary Admission Date: March 09, 2018 at 08:46 Discharge Date: March 12, 2018 Discharge Disposition: Home Principal Diagnosis: Neutropenic Fever,Pneumonitis,Lymphoma Secondary Diagnoses/Problems: Please see H&P and Hospital Progress note Consultations: Oncology Medication Reconciliation New Medications: Amoxicillin & Pot Clavulanate (Augmentin 875-125 mg) 1 Tab Tab 875 MG PO BID, #14 TAB Lactobacillus Acidophilus (Lactinex) Tab 2 TAB PO BID, #30 TAB Continued Medications: Acyclovir (Acyclovir) 400 Mg Tab 400 MG PO BID Alprazolam (Alprazolam) 0.25 Mg Tab 0.25 MG PO BID, TAB Atenolol (Atenolol) 50 Mg Tab 50 MG PO DAILY Citalopram Hydrobromide (Celexa) 20 Mg Tab 1 TAB PO DAILY for 30 Days, #90 TAB 3 Refills Esomeprazole Magnesium (Nexium) 40 Mg Capcr 40 MG PO DAILY Fluconazole (Fluconazole) 100 Mg Tab 100 MG PO DAILY STARTED 03/04/18 FOR 7 DAYS Discontinued Medications: Levofloxacin (Levaquin) 750 Mg Tab 750 MG PO DAILY, TAB STARTED 03/04/18 FOR 10 DAYS Admission Information HPI (per Admitting provider): He is a 62-year-old male with significant past medical history including 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 He received his chemo with CHOP on 22 February and also took etoposide on February 22, second and . He has been complaining of fever since Wednesday last associated with sweating and weakness and tiredness. He denies to any cough any phlegm, any urinary symptoms , any nausea and vomiting, or any open wounds. He was noted to have a temperature of 1 or 2F early this morning at that time he was advised to come to the emergency room for further evaluation. He was noted to have low white count at 1.66 and low neutrophil at 0.66 and other investigations where fairly unremarkable The case was discussed with oncologist and the patient was admitted with [place] neutropenic fever and started with daptomycin and Zosyn. Blood and urine cultures were sent Past Medical/Surgical History Medical Problems: (1) Chest mass (2) Chills (3) Dyslipidemia (4) Fever (5) GERD (gastroesophageal reflux disease) (6) History of paroxysmal supraventricular tachycardia (7) Hypertension (8) Neutropenic fever (9) Tachycardia #10. 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 PAST SURGICAL HISTORY Minor dental surgery Family History Colon cancer GRANDFATHER Heart disease FATHER Kidney disease MOTHER Prostate cancer FATHER Social History Smoking Status: Never Smoker Smokeless Tobacco Use: No Alcohol Use: occasionally Drug Use: none Marital Status: Housing status: lives with significant other Immunizations History of Influenza Vaccine: Yes History of Tetanus Vaccine?: Yes Allergies Coded Allergies: No Known Allergies (Unverified , 03/09/18) Home Medications Scheduled Acyclovir (Acyclovir), 400 MG PO BID Alprazolam (Alprazolam), 0.25 MG PO BID Atenolol (Atenolol), 50 MG PO DAILY Citalopram Hydrobromide (Celexa), 1 TAB PO DAILY Esomeprazole Magnesium (Nexium), 40 MG PO DAILY Fluconazole (Fluconazole), 100 MG PO DAILY Levofloxacin (Levaquin), 750 MG PO DAILY Review of Systems Constitutional: + fever, + chills, + sweats, + weakness, + fatigue Neurologic: + weakness, + vertigo Physical Exam H&P v2 Physical Exam Vital Signs Date Time Temp Pulse Resp B/P (MAP) Pulse Ox O2 Delivery O2 Flow Rate FiO2 03/09/18 10:45 36.7 81 18 104/63 96 03/09/18 10:18 36.7 84 16 113/69 97 03/09/18 10:01 84 15 108/62 98 Nasal Cannula 1.0 03/09/18 09:46 81 19 113/64 98 Nasal Cannula 1.0 03/09/18 09:39 36.9 83 20 108/62 100 1.0 03/09/18 09:36 82 20 108/62 99 Nasal Cannula 1.0 03/09/18 09:31 85 25 111/67 99 Nasal Cannula 1.0 03/09/18 09:16 84 20 105/68 99 Nasal Cannula 1.0 03/09/18 09:09 37.0 82 18 101/60 99 1.0 03/09/18 09:08 101/60 Nasal Cannula 1.0 03/09/18 09:01 106/75 Nasal Cannula 1.0 03/09/18 09:00 85 17 99 Nasal Cannula 1.0 5/16/18 08:45 85 19 111/67 99 Nasal Cannula 1.0 03/09/18 08:45 37.0 84 19 111/67 99 1.0 03/09/18 08:30 87 19 105/63 98 Nasal Cannula 1.0 03/09/18 08:15 87 23 111/62 99 Nasal Cannula 1.0 03/09/18 08:02 89 20 104/64 98 Nasal Cannula 1.0 03/09/18 07:48 90 24 115/65 98 Nasal Cannula 1.0 03/09/18 07:41 97 Nasal Cannula 1.0 03/09/18 07:30 97 19 122/68 97 Nasal Cannula 1.0 03/09/18 07:15 100 22 107/55 91 Room Air 03/09/18 07:13 38.3 03/09/18 07:00 100 23 132/67 92 Room Air 03/09/18 06:49 104 20 133/67 94 Room Air 03/09/18 06:32 113 03/09/18 06:09 38.8 116 18 96/64 96 Room Air General Appearance: + mild distress Head: normocephalic Eyes: normal inspection, PERRL ENT: normal ENT inspection Neck: supple Respiratory/Chest: chest non-tender, lungs clear, normal breath sounds Cardiovascular: regular rate, rhythm, no edema, no gallop, no JVD, no murmur Abdomen/GI: normal bowel sounds Genitourinary - Male: normal male genitalia Back: normal inspection Extremities/Musculoskelatal: normal inspection Neurologic/Psych: no motor/sensory deficits, alert, normal mood/affect, normal reflexes, + abnormal cerebellar tests Skin: normal color Lymphatic: no adenopathy Diagnostics H&P v2 Diagnostics Laboratory Results Results Past 24 Hours Test 03/09/18 06:26 03/09/18 06:30 03/09/18 06:35 03/09/18 07:30 Range/Units Bedside Lactic Acid Venous 3.06 0.90-1.70 mmol/L White Blood Count 1.06 4.8-10.8 K/uL Red Blood Count 3.08 4.7-6.1 M/uL Hemoglobin 8.7 14.0-18.0 g/dL Hematocrit 25.8 42-52 % Mean Corpuscular Volume 83.8 80-100 fL Mean Corpuscular Hemoglobin 28.2 25-34 pg Mean Corpuscular Hemoglobin Concent 33.7 32-36 g/dl Platelet Count 124 130-400 K/uL Mean Platelet Volume 10.0 7.4-10.4 fL Neutrophils (%) (Auto) 62.3 % Lymphocytes (%) (Auto) 13.2 % Monocytes (%) (Auto) 20.8 % Eosinophils (%) (Auto) 0.9 % Basophils (%) (Auto) 0.9 % Neutrophils # (Auto) 0.66 1.4-6.5 K/uL Lymphocytes # (Auto) 0.14 1.2-3.4 K/uL Monocytes # (Auto) 0.22 0.11-0.59 K/uL Eosinophils # (Auto) 0.01 0-0.5 K/uL Basophils # (Auto) 0.01 0-0.2 K/uL RDW Standard Deviation 57.9 36.4-46.3 fL RDW Coefficient of Variation 19.2 11.5-14.5 % Immature Granulocyte % (Auto) 1.9 % Immature Granulocyte # (Auto) 0.02 0.00-0.02 K/uL Nucleated RBC Absolute Count (auto) 0.02 0-0 K/uL Nucleated Red Blood Cells % 2.1 % Toxic Granulation 2+ Dohle Bodies 1+ Giant Platelets 1+ Prothrombin Time 11.8 9.0-12.0 SECONDS Prothromb Time International Ratio 1.1 0.9-1.1 Sodium Level 130 136-145 mmol/L Potassium Level 3.4 3.5-5.1 mmol/L Chloride Level 93 98-107 mmol/L Carbon Dioxide Level 28 21-32 mmol/L Anion Gap 9.0 3-11 mmol/L Blood Urea Nitrogen 9 7-18 mg/dl Creatinine 1.09 0.60-1.40 mg/dl Est Creatinine Clear Calc Drug Dose 60.9 ml/min Estimated GFR () 83.3 Estimated GFR (Non- 71.9 BUN/Creatinine Ratio 8.1 10-20 Random Glucose 116 70-99 mg/dl Calcium Level 8.9 8.5-10.1 mg/dl Magnesium Level 1.3 1.8-2.4 mg/dl Total Bilirubin 0.5 0.2-1 mg/dl Direct Bilirubin 0.2 0-0.2 mg/dl Aspartate Amino Transf (AST/SGOT) 37 15-37 U/L Alanine Aminotransferase (ALT/SGPT) 57 12-78 U/L Alkaline Phosphatase 129 45-117 U/L Total Creatine Kinase 22 39-308 U/L Creatine Kinase MB < 0.5 0.5-3.6 ng/ml Creatine Kinase MB Ratio 0-3.0 Troponin I 0.033 0-0.045 ng/ml Total Protein 7.2 6.4-8.2 gm/dl Albumin 2.7 3.4-5.0 gm/dl Influenza Type A (RT-PCR) Neg for Influ A NEG Influenza Type B (RT-PCR) Neg for Influ B NEG Urine Color YELLOW Urine Appearance CLEAR CLEAR Urine pH 7.5 4.5-7.5 Urine Specific [place] 1.015 1.000-1.030 Urine Protein 1+ NEG Urine Glucose (UA) NEG NEG Urine Ketones NEG NEG Urine Occult Blood NEG NEG Urine Nitrite NEG NEG Urine Bilirubin NEG NEG Urine Urobilinogen NEG NEG Urine Leukocyte Esterase NEG NEG Urine WBC (Auto) 1-5 0-5 /hpf Urine RBC (Auto) 0-4 0-4 /hpf Urine Hyaline Casts (Auto) 1-5 0-5 /lpf Urine Epithelial Cells (Auto) 20-30 0-5 /lpf Urine Bacteria (Auto) NEG NEG Microbiology Results 03/09/18 Fungal Smear, Received Pending 03/09/18 Fungal Culture, Received Pending 03/09/18 Blood Culture, Received Pending 03/09/18 Blood Culture, Received Pending CXR normal Normal EKG Impression H&P v2 Impression Assessment and Plan NEUTROPENIC FEVER Blood and urine culture have been taken He was started with IV daptomycin and Zosyn, will continue those We will hold his Levaquin for now he has discussed with Continue with prophylactic fluconazole and acyclovir Monitor CBC Case discussed with oncologist 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 with CHOP and etoposide Also received intrathecal chemotherapy Management will be as per oncologist HYPERTENSION Continue with atenolol BP is a stable HYPERLIPIDEMIA Continue statin GERD Continue PPI GERD Continue Xanax CODE STATUS: Full In my clinical assessment the beneficially meets criteria as per CMS for 2 midnight stay in the hospital Resuscitation Status VTE Prophylaxis Will order VTE Prophylaxis: Yes Physical Exam (per Admitting): General Appearance: + mild distress Head: normocephalic Eyes: normal inspection, PERRL ENT: normal ENT inspection Neck: supple Respiratory/Chest: chest non-tender, lungs clear, normal breath sounds Cardiovascular: regular rate, rhythm, no edema, no gallop, no JVD, no murmur Abdomen/GI: normal bowel sounds Genitourinary - Male: normal male genitalia Back: normal inspection Extremities/Musculoskelatal: normal inspection Neurologic/Psych: no motor/sensory deficits, alert, normal mood/affect, normal reflexes, + abnormal cerebellar tests Skin: normal color Lymphatic: no adenopathy Hospital Course Pneumonitis SEPSIS ,NEUTROPENIC FEVER 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 Blood and urine culture have been taken He was started with IV daptomycin and Zosyn, will continue those We will hold his Levaquin for now he has discussed with Continue with prophylactic fluconazole and acyclovir Monitor CBC-improving Case discussed with oncologist We will get CT of the abdomen and pelvis and CT of the chest with contrast to rule out any focus of infection-noted We will get ID consult-appreciate input Recommended Augmentin for 7 days Neupogen received for 2 doses-No more for now Discussed with the Oncologist ANGIOIMMUNOBLASTIC LYMPHOMA Has been getting chemotherapy with CHOP and etoposide Also received intrathecal chemotherapy Management will be as per oncologist HYPERTENSION Continue with atenolol BP is a stable HYPERLIPIDEMIA Continue statin GERD Continue PPI GERD Continue Xanax CODE STATUS: Full Case discussed with the daughter who is a physician at [facility] Discharge today Total time spent on discharge = 35 minutes This includes examination of the patient, discharge planning, medication reconciliation, and communication with other providers. Discharge Instructions Date of Service March 12, 2018. Admission Reason for Admission: Neutropenic Fever Discharge Discharge Diagnosis / Problem: Neutropenic Fever,Pneumonitis,Lymphoma Discharge Goals Goal(s): Prevent Disease Progression Activity Recommendations Activity Limitations: resume your previous activity . Instructions / Follow-Up Instructions / Follow-Up Please make an appointment with your PCP in 1week Keep appointment with your Oncologist. Current Hospital Diet Patient's current hospital diet: Regular Diet Discharge Diet Recommended Diet: Regular Diet Pending Studies Studies pending at discharge: no Medical Emergencies . Who to Call and When: Medical Emergencies: If at any time you feel your situation is an emergency, please call 911 immediately. . Non-Emergent Contact Non-Emergency issues call your: Primary Care Provider . Past History Medical & Surgical History: (1) Angioimmunoblastic lymphoma (2) Neutropenic fever (3) GERD (gastroesophageal reflux disease) (4) History of paroxysmal supraventricular tachycardia (5) Hypertension . "Provider Documentation" section prepared by Alvin Byrne. . <Electronically signed by Alvin Byrne M.D.> Signed: 03/12/18 2287 Additional Copies To Rodrigo Alamo M.D.
== END 2018-03-12 15:39 | disposition home or self-care (01) | DRG 871 ==
LOC: C.EDB 06:08 → C.4E 08:46 → UNDOADMIN 08:46 → ENRESERV 09:05
PROVIDERS: ADMIT Internal Medicine; ATTEND Internal Medicine
DX: A41.9 Sepsis, unspecified organism (principal); J18.9 Pneumonia, unspecified organism; R64 Cachexia; C86.5 Angioimmunoblastic T-cell lymphoma; D70.1 Agranulocytosis secondary to cancer chemotherapy; T45.1X5A Adverse effect of antineoplastic and immunosuppressive drugs, initial encounter; R50.81 Fever presenting with conditions classified elsewhere; I10 Essential (primary) hypertension; E78.00 Pure hypercholesterolemia, unspecified; E78.5 Hyperlipidemia, unspecified; K21.9 Gastro-esophageal reflux disease without esophagitis; Z68.23 Body mass index [BMI] 23.0-23.9, adult; Z79.899 Other long term (current) drug therapy